=== PATIENT | female | born 1960 | race Caucasian/White ===

== ENCOUNTER → 2017-11-05 16:11 | Outpatient (CLI) | payer OTHER, SELFPAY ==
--- NOTE | 2017-11-05 16:17 | MM_ITS ---
MM Dig screening mamm BI w/CAD CAD Screening COMPARISON: Digital mammograms 07/26/2016 and additional views left breast 08/04/2016 INDICATION: There is no personal or family history of breast cancer. TECHNIQUE: Standard CC and MLO images were obtained. R2 CAD reviewed. FINDINGS: Scattered fibroglandular densities are seen throughout both breasts. There are benign appearing castration is right breast. The metallic loop recorder device projects over the lower inner quadrant left breast. There is no suspicious lesion and there are no suspicious microcalcifications. IMPRESSION: Fibrofatty parenchyma no suspicious lesion seen BI-RADS Category: 2 Benign Finding(s) RECOMMENDED FOLLOW-UP: 1YR - 1 YEAR FOLLOW-UP (A letter has been sent to the patient regarding results of the study.)
== END ==
PROVIDERS: PCP Internal Medicine; Visit Provider Internal Medicine
DX: Z12.31 Encounter for screening mammogram for malignant neoplasm of breast (principal)
CPT/HCPCS: 77067

== ENCOUNTER → 2017-11-15 12:52 | Outpatient (CLI) | payer OTHER, SELFPAY ==
[2017-11-15 13:44] LABS: Blood Urea Nitrogen 16 mg/dL (7-18); Calcium 9.5 mg/dL (8.5-10.1); Carbon Dioxide 31 mmol/L (21.0-32.0); Chloride 102 mmol/L (98-107); Creatinine,Serum 0.73 mg/dL (0.55-1.02); Estimated Glomerular Filt Rate 82 ml/min (>60); GFR (African American) 99 ML/MIN (>60); Glucose 107 mg/dL (74-106); Sodium 140 mmol/L (136-145)
== END ==
PROVIDERS: Visit Provider Internal Medicine Cardiovascular Disease
DX: Z86.73 Personal history of transient ischemic attack (TIA), and cerebral infarction without residual deficits (principal); I10 Essential (primary) hypertension
CPT/HCPCS: 36415; 80048

== ENCOUNTER → 2018-04-15 11:57 | Outpatient (CLI) | payer OTHER, SELFPAY ==
--- NOTE | 2018-04-15 | NVE_ITS ---
Venous Exam Indications: 729.5 Pain in limb. IMPRESSIONS 1. There is no evidence of significant Reflux. 2. No evidence of deep or superficial vein thrombosis involving the right lower extremity History: Right lower extremity pain. Risk factors: Hypertension. History of CVA 2016. Patient denies trauma. States she's had knee cap edema and stinging in her right thigh. Medications: Aspirin, 325 mg. Right lower extremity venous duplex evaluation. Doppler flow study including spectral analysis, color and faye scale imaging. Location: Vascular laboratory. Patient status: Outpatient. Tables: Venous flow and imaging: + +-------+ + Location Overall Flow properties + +-------+ + Right common femoral Patent Normal phasicity; spontaneous; normal augmentation; compressible + +-------+ + Right saphenofemoral junction Patent Compressible + +-------+ + Right profunda femoral Patent Compressible + +-------+ + Right femoral Patent Normal phasicity; spontaneous; normal augmentation; compressible + +-------+ + Right greater saphenous Patent Normal phasicity; spontaneous; normal augmentation; compressible + +-------+ + Right popliteal Patent Normal phasicity; spontaneous; normal augmentation; compressible + +-------+ + Right posterior tibial Patent Compressible + +-------+ + Right peroneal Patent Compressible + +-------+ + Right gastrocnemius Patent Compressible + +-------+ + Right soleal Patent Compressible + +-------+ + (Report amended ) Electronically signed by: Austin Calhoun [id number]
== END ==
PROVIDERS: PCP Internal Medicine; Visit Provider Internal Medicine
DX: M79.604 Pain in right leg (principal)
CPT/HCPCS: 93971

== ENCOUNTER → 2018-07-03 10:57 | Outpatient (CLI) | payer OTHER, SELFPAY ==
--- NOTE | 2018-07-03 10:59 | US_ITS ---
US transvaginal HISTORY: Postmenopausal bleeding ITS.REASON: US T/V- post menopausal bleeding ORDERING PHYSICIAN: Renay Mcnair MD PATIENT AGE: 57 years Comparison: None FINDINGS: The uterus is retroverted and retroflexed and measures 8 x 5 x 8 cm with a combined endometrial thickness of 6 mm. There are at least 4 uterine fibroids one in the fundus at 2.4 x 1.9 cm, one posteriorly in the lower uterine segment on the right at 4.3 x 3.7 cm, another posteriorly on the left at 3.7 x 3.9 cm, and one anteriorly at 3.9 x 2.9 cm. Small hyperechoic focus is present in the cervix with some posterior acoustical shadowing. The ovaries have an unremarkable appearance. There is a trace amount of fluid in the pelvis. IMPRESSION: Uterine fibroids
== END ==
PROVIDERS: PCP Internal Medicine; Visit Provider Obstetrics & Gynecology
DX: N95.0 Postmenopausal bleeding (principal)
CPT/HCPCS: 76830

== ENCOUNTER → 2018-12-13 12:06 | Outpatient (CLI) | payer OTHER, SELFPAY | PROVIDERS: PCP Internal Medicine; Visit Provider Internal Medicine Cardiovascular Disease | DX: G47.33 Obstructive sleep apnea (adult) (pediatric) (principal); R06.83 Snoring; R40.0 Somnolence; R00.2 Palpitations; E78.2 Mixed hyperlipidemia; I10 Essential (primary) hypertension; Z86.73 Personal history of transient ischemic attack (TIA), and cerebral infarction without residual deficits | CPT/HCPCS: 95806 ==

== ENCOUNTER → 2019-02-17 16:40 | Outpatient (CLI) | payer OTHER, SELFPAY ==
--- NOTE | 2019-02-17 16:45 | MM_ITS ---
PROCEDURE: MM DIG SCREENING MAMM BI W/CAD Patient Age:58Y CLINICAL INDICATION: ROUTINE SCREENING 58-year-old. No hormones no new complaints Previous benign excisional biopsies: Right breast at 10-11 o'clock; and left breast 930 and 10 o'clock position COMPARISON: [facility] DIGITAL MAMM-SCREEN BILATERAL from 09/14/2010 [facility] DIGITAL MAMM-SCREEN BILATERAL from 10/26/2011 [facility] DIG MAMM-SCREEN CHEMO from 07/21/2013 [facility] DIG MAMM-SCREEN CHEMO from 10/14/2014 [facility] DIG MAMM-SCREEN CHEMO W/CAD from 07/26/2016 [facility] DIG MAMM-DX UNI A/VWS-LT W/CAD from 08/04/2016 [facility] MM Dig screening mamm BI w/CAD from 11/05/2017 TECHNIQUE: Standard CC and MLO images were obtained. R2 CAD reviewed. FINDINGS: No new areas of concern when compared to multiple studies. Stable mild asymmetry Minimal residual fibroglandular elements and is findings which likely reflect previous biopsies Right breast: No new areas of concern. Min mild asymmetric density upper outer quadrant is stable and likely reflects previous biopsy A few subtle areas of low density nodularity remains stable and can be followed Left breast but of minimal residual densities but no significant new area of concern Area of minor nodularity dates back to 2014, 2016 2017 with no significant change. Follow-up 1 year adequate IMPRESSION: stable mammogram. No new findings of significant concern. stable mild asymmetry, in part reflect previous biopsies Stable areas of minor nodularity bilaterally Bilateral follow-up 1 year recommended.-Should be encouraged/emphasized. BI-RAD Category: 2 Benign Finding(s) FOLLOW-UP: 1YR 1 Year Follow-up (A letter has been sent to the patient regarding results of the study.) Dictated by: Austin Calhoun MD 02/19/2019 08:57 Electronically signed by Austin Calhoun MD in [place] 02/19/2019 08:57
== END ==
PROVIDERS: PCP Internal Medicine; Visit Provider Internal Medicine
DX: Z12.31 Encounter for screening mammogram for malignant neoplasm of breast (principal)
CPT/HCPCS: 77067

== ENCOUNTER → 2020-09-06 16:34 | Outpatient (CLI) | payer BC, SELFPAY ==
--- NOTE | 2020-09-06 16:36 | MM_ITS ---
PROCEDURE: MM DIG SCREENING MAMM BI W/CAD Digital Breast Tomosynthesis Included CLINICAL INDICATION: SCREENING There is no personal or family history of breast cancer. There have been previous biopsies on each breast disease. COMPARISON: Digital mammograms with CAD 02/17/2019 and 11/05/2017 TECHNIQUE: Standard CC and MLO images and 3D Tomosynthesis was obtained. R2 CAD reviewed. FINDINGS: Moderate scattered fibroglandular densities are seen in both breasts. There is a benign-appearing microcalcification right breast in addition to scattered benign-appearing microcalcifications throughout each breast there is a loop recorder device inner quadrant left breast. There is a stable small benign-appearing density central portion right breast. CAD markings were reviewed and they appear to be secondary to vascular calcifications. There is no suspicious lesion and no suspicious microcalcifications. IMPRESSION: Fibrofatty parenchyma with no suspicious lesions seen BI-RAD Category: 2 Benign Finding(s) FOLLOW-UP: 1YR 1 Year Follow-up (A letter has been sent to the patient regarding results of the study.) Dictated by: Dr. Meng Packer MD 09/10/2020 09:43 Dr. Meng Packer MD in [place] 09/10/2020 09:43
== END ==
PROVIDERS: PCP Internal Medicine; Visit Provider Internal Medicine
DX: Z12.31 Encounter for screening mammogram for malignant neoplasm of breast (principal)
CPT/HCPCS: 77063; 77067

== ENCOUNTER → 2020-12-08 16:22 | Outpatient (CLI) | payer BC, SELFPAY ==
--- NOTE | 2020-12-08 16:29 | MR_ITS ---
PROCEDURE: MR HEAD/BRAIN WO CON CLINICAL INDICATION: VERTIGO NAUSEA AND H/A COMPARISON: No exams were available for comparison TECHNIQUE: Routine multiplanar multi echo sequences are performed without gadolinium enhancement. FINDINGS: No midline shift, mass effect, intracranial hemorrhage, or hydrocephalus. The cerebellopontine angles, cerebellum, and brainstem have an unremarkable appearance. There is no evidence of acute infarction. There is a small gyriform area of increased T2 signal within the inferior and posterior aspect of the left occipital lobe suggesting a small area of late subacute or chronic infarction. There are a few small T2 white matter hyperintensities which may be related to gliotic changes from microvascular disease. Migraine headache would be included in the differential diagnosis. The pituitary, optic chiasm, corpus callosum, and craniocervical junction have an unremarkable appearance. Incidental note is made of a pineal cyst measuring 12 by 10 mm. No hydrocephalus. Unremarkable hippocampal gyri. No mastoid effusion or sinus air-fluid level. IMPRESSION: 1. Small ribbon like area of increased T2 signal involving the inferior and posterior aspect of the left occipital lobe. This does not demonstrate restricted diffusion and is not consistent with an acute infarction but may represent a late subacute or chronic infarction as there is no underlying brain volume loss or decreased T1 signal. 2. 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 A few small scattered T2 white matter hyperintensities along the cerebral convexities which may represent gliotic changes from microvascular disease but could be seen with migraine headache as well. Dictated by: Kimani Ellis MD 12/08/2020 18:02 Kimani Ellis MD in [place] 12/08/2020 18:02
== END ==
PROVIDERS: PCP Internal Medicine; Visit Provider Internal Medicine
DX: R42 Dizziness and giddiness (principal); R51.9 Headache, unspecified; R11.0 Nausea
CPT/HCPCS: 70551

== ENCOUNTER → 2021-03-31 11:56 | Outpatient (CLI) | payer BC, SELFPAY | PROVIDERS: PCP Internal Medicine; Visit Provider Nurse Practitioner | DX: Z20.822 Contact with and (suspected) exposure to COVID-19 (principal) | CPT/HCPCS: C9803; U0003; U0005 ==

== ENCOUNTER → 2021-05-13 14:21 | Outpatient (CLI) | payer BC, SELFPAY ==
--- NOTE | 2021-05-14 11:39 | PC.NURSE ---
informed patient that she was positive
== END ==
PROVIDERS: PCP Internal Medicine; Visit Provider Internal Medicine
DX: U07.1 COVID-19 (principal)
CPT/HCPCS: C9803; U0003; U0005

== ENCOUNTER → 2021-09-15 15:25 | Outpatient (CLI) | payer BC, SELFPAY ==
--- NOTE | 2021-09-15 15:30 | MM_ITS ---
PROCEDURE INFORMATION: Exam: MG Bilateral Screening 3D Mammography Exam date and time: 09/15/2021 3:26 PM Age: 60 years old Clinical indication: Screening examination TECHNIQUE: Imaging protocol: Bilateral Screening tomosynthesis and 2D mammography including computer-aided detection (CAD) when performed. COMPARISON: 1. MG MM DIG SCREENING MAMM BI W/CAD 09/06/2020 4:36 PM 2. MG MM DIG SCREENING MAMM BI W/CAD 02/17/2019 4:56 PM FINDINGS: MAMMOGRAPHY: Breast composition: The breast tissue is composed of scattered areas of fibroglandular density. Mass: None. Architectural distortion: None. Calcifications: No suspicious calcifications. Asymmetric density: None. Skin thickening: None. Axillary adenopathy: None. IMPRESSION: No mammographic evidence of malignancy. Annual screening is recommended unless otherwise clinically indicated. ASSESSMENT: BI-RADS Category 1: Negative
== END ==
PROVIDERS: PCP Internal Medicine; Visit Provider Obstetrics & Gynecology
DX: Z12.31 Encounter for screening mammogram for malignant neoplasm of breast (principal)
CPT/HCPCS: 77063; 77067

== ENCOUNTER → 2022-01-10 16:19 | Outpatient (CLI) | payer BC, SELFPAY ==
--- NOTE | 2022-01-10 16:24 | XR_ITS ---
PROCEDURE INFORMATION: Exam: XR Left Knee Exam date and time: 01/10/2022 4:29 PM Age: 61 years old Clinical indication: Pain; Knee; Left TECHNIQUE: Imaging protocol: Radiologic exam of the Left knee. Views: 3 views. COMPARISON: No relevant prior studies available. FINDINGS: Bones/joints: Osteopenia. Advanced tricompartmental degenerative changes. No definite acute fracture or dislocation. Soft tissues: Normal. IMPRESSION: Chronic changes without definite acute process. If there is ongoing concern, cross-sectional imaging can be obtained for further evaluation.
--- NOTE | 2022-01-10 16:24 | XR_ITS ---
PROCEDURE INFORMATION: Exam: XR Right Knee Exam date and time: 01/10/2022 4:29 PM Age: 61 years old Clinical indication: Pain; Knee; Right; Additional info: Bilat knee pain TECHNIQUE: Imaging protocol: Radiologic exam of the Right knee. Views: 3 views. COMPARISON: US CA venous doppler LE RT 04/15/2018 12:09 PM FINDINGS: Moderate to severe patellofemoral compartment osteoarthritis. Mild bilateral tibiofemoral compartment osteoarthritis. The joint space at the patellofemoral compartment is significantly decreased. Joint spaces at the bilateral tibiofemoral compartments are very well preserved no acute fracture, dislocation, or aggressive skeletal lesion. No joint effusions. No significant soft tissue swelling. IMPRESSION: 1. Moderate to severe patellofemoral compartment osteoarthritis. 2. Mild bilateral tibiofemoral compartment osteoarthritis. 3. No acute skeletal pathology.
== END ==
PROVIDERS: PCP Internal Medicine; Visit Provider Internal Medicine
DX: M25.562 Pain in left knee (principal); M25.561 Pain in right knee
CPT/HCPCS: 73562

== ENCOUNTER → 2022-01-24 11:55 | Outpatient (CLI) | payer BC, SELFPAY | PROVIDERS: PCP Internal Medicine; Visit Provider Internal Medicine | DX: U07.1 COVID-19 (principal) | CPT/HCPCS: C9803; U0003; U0005 ==

== ENCOUNTER → 2022-03-20 13:48 | Outpatient (CLI) | payer BC, SELFPAY ==
[2022-03-20 14:38] LABS: Basophils # 0.5 K/mm3 (0-0.2); Basophils % 6.8 % (0.1-2.0); Eosinophils # 0.1 K/mm3 (0.0-0.4); Eosinophils % 1.1 % (0.1-12.0); Hematocrit 46.9 % (37.0-47.0); Hemoglobin 14.7 g/dL (12.2-16.2); Lymphocytes # 2.3 K/mm3 (0.7-4.5); Lymphocytes % 30.9 % (10-50); Mean Corpuscular HGB Conc 31.3 g/dL (31.8-35.4); Mean Corpuscular Hemoglobin 29.2 pg (27.0-31.2); Mean Platelet Volume 21.6 fl (7.4-10.4); Monocytes # 0.4 K/mm3 (0.1-1.0); Monocytes % 5.7 % (1.7-9.3); Neutrophils # 4.6 K/mm3 (1.8-7.8); Neutrophils % 62.3 % (37.0-80.0); Platelet Count 101 K/mm3 (142-424); Red Blood Count 5.04 M/mm3 (4.20-5.40); Red Cell Distribution Width 22.9 % (11.5-17.5); White Blood Count 7.3 K/mm3 (4.8-10.8)
[2022-03-20 16:07] LABS: Alanine Aminotransferase 41 U/L (12-78); Albumin Level 4.2 g/dl (3.5-5.0); Alkaline Phosphatase 102 U/L (38-126); Aspartate Amino Transferase 36 U/L (14-36); Bilirubin,Direct 0.1 mg/dl (0.0-0.4); Bilirubin,Indirect 0.4 mg/dL (0.0-0.9); Bilirubin,Total 0.5 mg/dl (0.2-1.3); Bilirubin,Unconjugated 0.4 mg/dL (0.0-1.1); Blood Urea Nitrogen 16 mg/dl (7-17); Calcium 9.1 mg/dl (8.4-10.2); Carbon Dioxide 31 mmol/L (22.0-30.0); Chloride 98 mmol/L (98-107); Chol/HDL Ratio 2.7 (1-3.5); Cholesterol 147 mg/dl (140-200); Estimated Glomerular Filt Rate 85 ml/min (>60); GFR (African American) 102 ML/MIN (>60); Glucose 94 mg/dl (74-100); HDL Cholesterol 55 mg/dl (40-60); Sodium 139 mmol/L (136-145); Total Protein,Serum 6.8 g/dl (6.3-8.2); Triglycerides 121 mg/dl (30-150); VLDL Cholesterol 24 mg/dL (0-40)
[2022-03-20 16:18] LABS: Direct LDL Cholesterol 66.03 mg/dL (100-129)
[2022-03-20 16:38] LABS: Thyroid Stimulating Hormone 3.38 uIU/mL (0.465-4.68)
== END ==
PROVIDERS: PCP Internal Medicine; Visit Provider Internal Medicine
DX: R06.00 Dyspnea, unspecified (principal); I11.9 Hypertensive heart disease without heart failure; E78.5 Hyperlipidemia, unspecified; Z86.73 Personal history of transient ischemic attack (TIA), and cerebral infarction without residual deficits; E11.9 Type 2 diabetes mellitus without complications
CPT/HCPCS: 36415; 80048; 80061; 80076; 84439; 84443; 85025

== ENCOUNTER → 2022-04-25 12:34 | Outpatient (CLI) | payer BC, SELFPAY ==
[2022-04-25 13:42] LABS: Basophils # 0.1 K/mm3 (0-0.2); Basophils % 0.9 % (0.1-2.0); Eosinophils # 0.1 K/mm3 (0.0-0.4); Eosinophils % 0.8 % (0.1-12.0); Hematocrit 48.8 % (37.0-47.0); Hemoglobin 15.3 g/dL (12.2-16.2); Lymphocytes # 2.3 K/mm3 (0.7-4.5); Lymphocytes % 28.1 % (10-50); Mean Corpuscular HGB Conc 31.5 g/dL (31.8-35.4); Mean Corpuscular Hemoglobin 30.8 pg (27.0-31.2); Mean Corpuscular Volume 97.9 fl (81-99); Mean Platelet Volume 8.7 fl (7.4-10.4); Monocytes # 0.6 K/mm3 (0.1-1.0); Monocytes % 6.8 % (1.7-9.3); Neutrophils # 5.3 K/mm3 (1.8-7.8); Neutrophils % 63.3 % (37.0-80.0); Platelet Count 335 K/mm3 (142-424); Red Blood Count 4.98 M/mm3 (4.20-5.40); Red Cell Distribution Width 13.6 % (11.5-17.5); White Blood Count 8.3 K/mm3 (4.8-10.8)
[2022-04-25 14:47] LABS: Blood Urea Nitrogen 17 mg/dl (7-17); Carbon Dioxide 31 mmol/L (22.0-30.0); Chloride 94 mmol/L (98-107); Estimated Glomerular Filt Rate 63 ml/min (>60); GFR (African American) 77 ML/MIN (>60); Glucose 81 mg/dl (74-100); Magnesium 1.9 mg/dl (1.6-2.3); Sodium 139 mmol/L (136-145)
== END ==
PROVIDERS: PCP Internal Medicine; Visit Provider Internal Medicine
DX: I10 Essential (primary) hypertension (principal); D69.6 Thrombocytopenia, unspecified; R25.2 Cramp and spasm; Z86.73 Personal history of transient ischemic attack (TIA), and cerebral infarction without residual deficits
CPT/HCPCS: 80048; 83735; 85025

== ENCOUNTER 2022-09-04 00:01 | Inpatient (IN) | payer BC, SELFPAY ==
[2022-09-04] VITALS (27 sets, daily range): BP systolic 110–189; BP diastolic 54–88; PULSE 58–90; RESP 16–20; TEMP 36.4–36.8; O2SAT 92–100; BMI 35.4; BMI 36.5
--- NOTE | 2022-09-04 00:07 | ECG_ITS ---
APPROVED REPORT Exam: Resting ECG HR:63 bpm ECG Measurements Heart Rate 63 AXES KS 123 P 55 QRSd 93 QRS 69 QT 358 T 80 QTc 366 Conclusion SINUS RHYTHM NORMAL ECG UNCONFIRMED REPORT Electronically signed by : Macho Slater MD 09/04/2022 20:21:05
--- NOTE | 2022-09-04 00:07 | XR_ITS ---
PROCEDURE INFORMATION: Exam: XR Chest Exam date and time: 09/04/2022 12:48 AM Age: 61 years old Clinical indication: Pain; Chest pressure; Additional info: Cp TECHNIQUE: Imaging protocol: Radiologic exam of the chest. Views: 2 views. COMPARISON: No relevant prior studies available. FINDINGS: Lungs: Left lung granuloma. Mild bibasilar atelectasis. Pleural spaces: Unremarkable. No pleural effusion. No pneumothorax. Heart/Mediastinum: Unremarkable. No cardiomegaly. Vasculature: Vascular calcifications. Bones/joints: Unremarkable. IMPRESSION: No acute findings.
[2022-09-04 00:20] LABS: Basophils # 0.1 K/mm3 (0-0.2); Basophils % 0.9 % (0.1-2.0); Eosinophils # 0.2 K/mm3 (0.0-0.4); Eosinophils % 1.6 % (0.1-12.0); Hematocrit 50.7 % (37.0-47.0); Hemoglobin 16.6 g/dL (12.2-16.2); Lymphocytes # 3.4 K/mm3 (0.7-4.5); Lymphocytes % 33.5 % (10-50); Mean Corpuscular HGB Conc 32.8 g/dL (31.8-35.4); Mean Corpuscular Hemoglobin 30.8 pg (27.0-31.2); Mean Corpuscular Volume 93.9 fl (81-99); Mean Platelet Volume 8.3 fl (7.4-10.4); Monocytes # 0.7 K/mm3 (0.1-1.0); Monocytes % 6.7 % (1.7-9.3); Neutrophils # 5.9 K/mm3 (1.8-7.8); Neutrophils % 57.4 % (37.0-80.0); Platelet Count 350 K/mm3 (142-424); Red Blood Count 5.39 M/mm3 (4.20-5.40); Red Cell Distribution Width 13.1 % (11.5-17.5); White Blood Count 10.2 K/mm3 (4.8-10.8)
[2022-09-04 00:23] LABS: Coronavirus 19, PCR Not Detected (NotDetected); Influenza A, PCR Not Detected (NotDetected); Influenza B, PCR Not Detected (NotDetected)
[2022-09-04 00:23] LABS: Alanine Aminotransferase 30 U/L (12-78); Albumin Level 4.7 g/dl (3.5-5.0); Albumin/Globulin Ratio 1.4 (1.1-1.8); Alkaline Phosphatase 53 U/L (38-126); Aspartate Amino Transferase 40 U/L (14-36); Blood Urea Nitrogen 22 mg/dl (7-17); Calcium 9.1 mg/dl (8.4-10.2); Carbon Dioxide 26 mmol/L (22.0-30.0); Chloride 100 mmol/L (98-107); Creatinine Clearance Estimated 82 mL/min (50-200); Estimated Glomerular Filt Rate 72 ml/min (>60); GFR (African American) 88 ML/MIN (>60); Globulin 3.3 g/dL (1.3-3.2); Glucose 184 mg/dl (74-100); Sodium 132 mmol/L (136-145)
[2022-09-04 00:28] LABS: C-Reactive Protein 0.4 mg/L (0-4)
[2022-09-04 00:39] LABS: Troponin I < 0.01 ng/ml (0.00-0.034)
[2022-09-04 00:48] LABS: Erythrocyte Sedimentation Rate 2 mm/hr (0-30)
--- NOTE | 2022-09-04 00:49 | HMH.EDCP ---
Discharge Plan Disposition Patient Disposition: Admitted as Observation Chief Complaint: Chest Pain Prescriptions Prescriptions: No Action lorazepam 0.5 mg tablet 0.5 mg PO TID PRN (Reason: Anxiety) Label Comments: TAKE 1 TABLET BY MOUTH THREE TIMES DAILY NEEDED FOR NERVES gabapentin 100 mg capsule 100 mg PO NEEDED PRN (Reason: Pain) atenolol 50 mg tablet 50 mg PO DAILY atorvastatin [Lipitor] 40 mg tablet 40 mg PO DAILY aspirin 325 mg tablet 325 mg PO DAILY naproxen 500 mg tablet 500 mg PO DAILY PRN (Reason: Pain, Mild) famotidine 20 mg tablet 20 mg PO DAILY PRN (Reason: Acid Reflux) meloxicam 7.5 mg tablet 7.5 mg PO DAILY PRN (Reason: Pain, Mild) cholecalciferol (vitamin D3) 25 mcg (1,000 unit) capsule 25 mcg PO DAILY losartan 50 mg tablet See Rx Instructions .ROUTE .COMPLEX Rx Instructions: Take 1 tablet by mouth once daily hydrochlorothiazide 12.5 mg tablet See Rx Instructions .ROUTE .COMPLEX Rx Instructions: Take 1 tablet by mouth once daily Referrals Follow up/Referrals: Provider,Referral, MD [Primary Care Provider] - See instructions Clinical Impressions Clinical Impression: Angina at rest, Hypertensive disorder, HLD (hyperlipidemia), History of CVA (cerebrovascular accident) without residual deficits, Obesity Discharge ED Provider: Vince (JOE)Arley Chest Pain HPI General Chief Complaint: Chest Pain Stated Complaint: chest pain Time Seen by Provider: 09/04/22 00:49 Mode of Arrival: Ambulatory Source of Information: Patient, Spouse and Medical Record Limitations: No Limitations Description of Symptoms (Recalled from ER Triage Doc. by RN): Pt arrives to ED with c/o chest pain that is radiating to left arm that started approx 1 hour ago. History of Present Illness HPI narrative: new onset of tightness chest pain with rad awoke pt with rad to lt upper ext - hx of cva in past MD complaint: chest pain indicative of cardiac Onset (ago): hour(s) Duration: constant Activity at onset: awoke with symptoms Pain location: left chest Severity: moderate Quality: tightness Pain radiation: LUE Risk Factors for CAD: Hypertension and Family Hx of CAD Treatments prior to or on arrival for Cardiac Chest Pain: aspirin JULIO CESAR Score for Non-Stemi Age of Patient: 60-69 years old Heart Rate: 50-69 bpm Systolic Blood Pressure: 100-119 mmHg Serum Creatinine: 0.80-1.19 mg/dl CHF [place] Class: I-No CHF Other Risk Factors: None Non-Stemi Risk Score: 111 Risk Stratification: 109-140 = Intermediate Ri Related Data On Oral Contraceptives: No Home Medications Medication Instructions Recorded Confirmed atenolol 50 mg tablet 50 mg PO DAILY Hypertension 08/08/17 09/04/22 atorvastatin 40 mg tablet (Lipitor) 40 mg PO DAILY Cholesterol 08/08/17 09/04/22 aspirin 325 mg tablet 325 mg PO DAILY Chest pain 08/09/17 09/04/22 naproxen 500 mg tablet 500 mg PO DAILY PRN Pain, Mild 02/21/19 09/04/22 lorazepam 0.5 mg tablet 0.5 mg PO TID PRN Anxiety 10/21/19 09/04/22 cholecalciferol (vitamin D3) 25 25 mcg PO DAILY Cholesterol 03/20/22 09/04/22 mcg (1,000 unit) capsule famotidine 20 mg tablet 20 mg PO DAILY PRN Acid Reflux 03/20/22 09/04/22 meloxicam 7.5 mg tablet 7.5 mg PO DAILY PRN Pain, Mild 03/20/22 09/04/22 gabapentin 100 mg capsule 100 mg PO NEEDED PRN Pain 08/30/22 09/04/22 hydrochlorothiazide 12.5 mg tablet See Rx Instructions .Route 09/04/22 09/04/22 .COMPLEX Hypertension losartan 50 mg tablet See Rx Instructions .Route 09/04/22 09/04/22 .COMPLEX Hypertension Allergies Allergy/AdvReac Type Severity Reaction Status Date / Time No Known Allergies Allergy Verified 08/30/22 09:12 [facility] Disclaimer: The information contained in this section may have been updated after the patient was seen, as this information can be updated by other users. Social History Marisela
--- NOTE | 2022-09-04 00:51 | PC.NURSE ---
Pt states she took 324mg of aspirin prior to coming to the ED.
--- NOTE | 2022-09-04 01:51 | EXP.HP ---
History of Present Illness *Admission Date: 09/04/22 *Reason for visit:: Chest pain *History of present illness: This is a 61-year-old female with a past medical history of CVA, HTN, HLD who presents emergency department today with complaints of midsternal chest pain. She reports chest pain woke her from sleep around 11:00 this evening. She states that pain was heaviness and squeezing in nature. Pain radiated to her left arm. She denies any aggravating or alleviating factors to this pain. She reports she was in her normal state of health prior to this pain. She reports prior evaluation by Dr. Will at the timing of her stroke but has not had follow-up since. She reports being compliant with her home aspirin, statin and antihypertensive medications Emergency department work-up significant for hypertension on arrival. laboratory evaluation unremarkable. Troponin negative. EKG without ischemia. Pain was improved after nitro administration. Given patient's nature of complaints, she will be admitted to hospital service for further evaluation management [facility] Disclaimer: The information contained in this section may have been updated after the patient was seen, as this information can be updated by other users. Social History Smoking Status: Former smoker pack-years: 10 alcohol intake: current substance use type: denies use current occupational status: employed Travel in the last 8 weeks: None household members: spouse housing: house Review of Systems Review of Systems Review of systems:: pertinent systems reviewed and negative unless documented below Constitutional Constitutional: Reports as per HPI Eyes Eyes: Reports as per HPI ENT Ears, Nose, Mouth, and Throat: Reports as per HPI *Cardiovascular Cardiovascular: Reports as per HPI *Respiratory Respiratory: Reports as per HPI *Gastrointestinal Gastrointestinal: Reports dyspepsia *Genitourinary Genitourinary: Reports system reviewed and no additional complaints, except as documented *Musculoskeletal Musculoskeletal: Reports system reviewed and no additional complaints, except as documented Integumentary/Breasts Skin/Breast: Reports system reviewed and no additional complaints, except as documented *Neurologic Neurologic: Reports system reviewed and no additional complaints, except as documented Meds Home Medications and Allergies Home Medications Medication Instructions Recorded Confirmed Type atenolol 50 mg tablet 50 mg PO DAILY Hypertension 08/08/17 09/04/22 History atorvastatin 40 mg tablet (Lipitor) 40 mg PO DAILY Cholesterol 08/08/17 09/04/22 History aspirin 325 mg tablet 325 mg PO DAILY Chest pain 08/09/17 09/04/22 History naproxen 500 mg tablet 500 mg PO DAILY PRN Pain, Mild 02/21/19 09/04/22 History lorazepam 0.5 mg tablet 0.5 mg PO TID PRN Anxiety 10/21/19 09/04/22 History cholecalciferol (vitamin D3) 25 25 mcg PO DAILY Cholesterol 03/20/22 09/04/22 History mcg (1,000 unit) capsule famotidine 20 mg tablet 20 mg PO DAILY PRN Acid Reflux 03/20/22 09/04/22 History meloxicam 7.5 mg tablet 7.5 mg PO DAILY PRN Pain, Mild 03/20/22 09/04/22 History gabapentin 100 mg capsule 100 mg PO NEEDED PRN Pain 08/30/22 09/04/22 History hydrochlorothiazide 12.5 mg tablet See Rx Instructions .Route 09/04/22 09/04/22 History .COMPLEX Hypertension losartan 50 mg tablet See Rx Instructions .Route 09/04/22 09/04/22 History .COMPLEX Hypertension New Prescriptions to Start Prescriptions: Allergies Allergy/AdvReac Type Severity Reaction Status Date / Time No Known Allergies Allergy Verified 08/30/22 09:12 Exam Data for Last 24 hours Vital signs and Labs for Last 24 Hours: Temp Pulse Resp BP Pulse Ox 98.3 F 67 18 189/88 H 99 09/04/22 00:01 09/04/22 00:01 09/04/22 00:01 09/04/22 00:01 09/04/22 00:01 Laboratory Results - last 24 hr 09/04/22 00:02: WBC 10.2, RBC 5.39,
--- NOTE | 2022-09-04 05:52 | PC.NURSE ---
Pt. is aox 4, up ad cesilia, no pain reported, 20g R FA sl, awaiting to be seen by cardiology, npo at present.
[2022-09-04 06:28] LABS: Basophils # 0.1 K/mm3 (0-0.2); Basophils % 0.7 % (0.1-2.0); Eosinophils # 0.1 K/mm3 (0.0-0.4); Mean Platelet Volume 8.2 fl (7.4-10.4)
[2022-09-04 06:37] LABS: Chloride 104 mmol/L (98-107); Eosinophils % 0.9 % (0.1-12.0); Hematocrit 45.3 % (37.0-47.0); Lymphocytes # 2.5 K/mm3 (0.7-4.5); Lymphocytes % 28.8 % (10-50); Mean Corpuscular HGB Conc 31.9 g/dL (31.8-35.4); Mean Corpuscular Hemoglobin 30.3 pg (27.0-31.2); Mean Corpuscular Volume 94.9 fl (81-99); Monocytes # 0.6 K/mm3 (0.1-1.0); Monocytes % 6.8 % (1.7-9.3); Neutrophils # 5.4 K/mm3 (1.8-7.8); Neutrophils % 62.7 % (37.0-80.0); Platelet Count 334 K/mm3 (142-424); Red Blood Count 4.77 M/mm3 (4.20-5.40); Red Cell Distribution Width 13.2 % (11.5-17.5); Sodium 137 mmol/L (136-145); White Blood Count 8.6 K/mm3 (4.8-10.8)
[2022-09-04 06:39] LABS: Blood Urea Nitrogen 19 mg/dl (7-17); Creatinine Clearance Estimated 85 mL/min (50-200); Estimated Glomerular Filt Rate 72 ml/min (>60); GFR (African American) 88 ML/MIN (>60)
[2022-09-04 06:40] LABS: Calcium 8.7 mg/dl (8.4-10.2); Carbon Dioxide 29 mmol/L (22.0-30.0); Chol/HDL Ratio 2.9 (1-3.5); Cholesterol 135 mg/dl (140-200); Glucose 151 mg/dl (74-100); HDL Cholesterol 46 mg/dl (40-60); Hemoglobin 14.4 g/dL (12.2-16.2); Magnesium 1.9 mg/dl (1.6-2.3); Triglycerides 130 mg/dl (30-150); VLDL Cholesterol 26 mg/dL (0-40)
[2022-09-04 06:51] LABS: Direct LDL Cholesterol 76.88 mg/dL (100-129)
[2022-09-04 07:11] LABS: Thyroid Stimulating Hormone 3.67 uIU/mL (0.465-4.68)
--- NOTE | 2022-09-04 07:22 | HMH.PHAINT1 ---
Pharmacy Intervention Comments: Reconciled patient's home medications using patient interview and pharmacy fill history.
[2022-09-04 07:54] LABS: Free T4 (Free Thyroxine) 1.03 ng/dl (0.78-2.19)
--- NOTE | 2022-09-04 09:15 | EXP.CARD.CON ---
History of Present Illness History of Present Illness Consult date: 09/04/22 Requesting physician: Saqib Sawant Consult reason: chest pain Chief complaint: unstable angina History of present illness: 61-year-old white female with significant past medical history for TIA, has loop recorder in place at end of life, hyperlipidemia, and hypertension, presented to emergency department last night with complaints of midsternal chest pressure radiating to left arm. Patient reports she was in her usual state of health yesterday when last night she awoke from sleep with pain. Patient reports pain was associated with mild shortness of air. Denies nausea, vomiting, dizziness or syncope. Upon presentation to emergency department patient was noted to be hypertensive with a blood pressure of 189/88. Labs as follow: WBC 10.2, hemoglobin 16.6, sodium 132, potassium 5.0, creatinine 0.80, glucose 184, troponin negative. Troponin has trended up to 0.46 since initial troponin. EKG was normal sinus rhythm with a rate of [address] changes noted, no acute ischemic changes noted. Patient reports pain relieved with nitro. Patient denies any chest pain currently. Blood pressure improved to 130s. [facility] Disclaimer: The information contained in this section may have been updated after the patient was seen, as this information can be updated by other users. Social History (Updated 09/04/22 @ 03:47 by Diego Farley RN) Smoking Status: Former smoker pack-years: 10 alcohol intake: current substance use type: denies use current occupational status: employed Travel in the last 8 weeks: None household members: spouse housing: house Review of Systems Review of Systems Review of systems:: pertinent systems reviewed and negative unless documented below Constitutional Constitutional: Reports system reviewed and no additional complaints, except as documented *Cardiovascular Cardiovascular: Reports chest pain and Reports dyspnea *Respiratory Respiratory: Reports dyspnea *Gastrointestinal Gastrointestinal: Reports system reviewed and no additional complaints, except as documented *Neurologic Neurologic: Reports system reviewed and no additional complaints, except as documented and Denies confusion Psychiatric Psychiatric: Reports system reviewed and no additional complaints, except as documented and Denies confusion Exam Data for Last 24 hours Vital signs and Labs for Last 24 Hours: Temp Pulse Resp BP Pulse Ox 98.1 F 60 16 139/54 L 98 09/04/22 08:00 09/04/22 08:00 09/04/22 08:00 09/04/22 08:00 09/04/22 08:00 Laboratory Results - last 24 hr 09/04/22 00:02: WBC 10.2, RBC 5.39, Hgb 16.6 H, Hct 50.7 H, MCV 93.9, MCH 30.8, MCHC 32.8, RDW 13.1, Plt Count 350, MPV 8.3, Neut % (Auto) 57.4, Lymph % (Auto) 33.5, [place] % (Auto) 6.7, Eos % (Auto) 1.6, Baso % (Auto) 0.9, Neut # (Auto) 5.9, Lymph # (Auto) 3.4, [place] # (Auto) 0.7, Eos # (Auto) 0.2, Baso # (Auto) 0.1, ESR 2 09/04/22 00:02: Sodium 132 L, Potassium 5.0, Chloride 100, Carbon Dioxide 26, Anion Gap 11.0, BUN 22 H, Creatinine 0.80, Estimated Creat Clear 82, Estimated GFR 72, Est GFR ( Amer) 88, Glucose 184 H, Calcium 9.1, Total Bilirubin 1.0, AST 40 H, ALT 30, Alkaline Phosphatase 53, Troponin I < 0.01, C-Reactive Protein 0.4, Total Protein 8.0, Albumin 4.7, Globulin 3.3 H, Albumin/Globulin Ratio 1.4 09/04/22 00:15: SARS-CoV-2 (PCR) Not detected, Influenza A Untype (PCR) Not detected, Influenza Type B (PCR) Not detected 09/04/22 06:17: WBC 8.6, RBC 4.77, Hgb 14.4 D, Hct 45.3, MCV 94.9, MCH 30.3, MCHC 31.9, RDW 13.2, Plt Count 334, MPV 8.2, Neut % (Auto) 62.7, Lymph % (Auto) 28.8, [place] % (Auto) 6.8, Eos % (Auto) 0.9, Baso % (Auto) 0.7, Neut # (Auto) 5.4, Lymph # (Auto) 2.5, Put[place] # (Auto) 0.6, Eos # (Auto) 0.1, Baso # (Auto) 0.1 09/04/22 06:17: Sodium 137, Potassium 4.0, Chloride 104, Carbon Dioxide 29, Anion Gap 8.0, BUN 19 H, Creatinine 0.80, Estimated Creat Clear 85, Estimated
--- NOTE | 2022-09-04 09:30 | IR_ITS ---
APPROVED REPORT Patient Location: Outpatient[facility]patient PROCEDURES Left heart catheterization Left ventriculogram Selective coronary angiogram INDICATION Acute non-ST elevation myocardial infarction Informed consent was obtained prior to the procedure. COMPLICATIONS NONE Estimated Blood Loss: LESS THAN 10 ML TECHNIQUE One percent lidocaine used to anesthetize the right anterior aspect of the wrist. The right radial artery was accessed via the Seldinger technique. A 6 Armenian sheath was placed in the right radial artery. 150 mg magnesium sulfate, 800 mcg of nitroglycerin, 1mg Lidocaine and 5000 U Heparin were given through the arterial sheath. The papa catheter was also used to perform left heart catheterization, left ventriculogram and selective coronary angiogram. At the end of the procedure the sheath was removed good hemostasis was achieved using Traclet band, patient was transferred to the postop holding area in stable condition. ANGIOGRAPHIC RESULTS The left main artery Normal The left anterior descending artery Is proximally normal and has a small focal myocardial bridge compressing at 40 to 50% along a tortuous bend in the mid LAD The circumflex artery Dominant normal The right coronary artery Vestigial normal The QUILES ventriculogram reveals Normal 65% The left ventricular end-diastolic pressure 15 mmHg IMPRESSION No atherosclerotic plaque within the coronary arteries Clinically insignificant myocardial bridge involving the mid LAD along a tortuous bend Normal ejection fraction Normal LVEDP PLAN 1. Noncardiac evaluation for elevated troponin 2. Consider pulmonary artery CTA gram Electronically signed by : Zafar Will MD 09/04/2022 14:26:08
[2022-09-04 09:42] LABS: Troponin I 0.46 ng/ml (0.00-0.034)
--- NOTE | 2022-09-04 09:43 | PC.NURSE ---
Dr. Sawant notified of critical troponin of 0.46.
[2022-09-04 13:00] LABS: Troponin I 0.86 ng/ml (0.00-0.034)
--- NOTE | 2022-09-04 13:09 | PC.NURSE ---
Dr. Sawant notified for critical troponin of 0.86. Called [facility] to inquire about how long before the procedure and they stated it would be approx. 45 mins. Pt. denies chest pain. Will continue to monitor.
--- NOTE | 2022-09-04 15:17 | CT_ITS ---
FINAL REPORT TECHNIQUE: Postcontrast axial images of the chest were performed in a CTA protocol. This study was performed with techniques to keep radiation doses as low as reasonably achievable, (ALARA). Individualized dose reduction technique using automated exposure control or adjustment of mA and/or kV according to the patient's size were employed. CLINICAL HISTORY: elevated troponin FINDINGS: The heart is normal in size. No adenopathy is identified. No pleural or pericardial effusion is identified. The thoracic aorta is normal in caliber with no focal aneurysm or dissection identified. There is no filling defect to suggest pulmonary embolism. There is mild bibasilar atelectasis. A calcified granuloma is seen in the right lower lobe. Lungs are otherwise clear. The images of the upper abdomen are unremarkable. IMPRESSION: No evidence for PE on this exam. Mild bibasilar atelectasis. Reviewed, Interpreted and Dictated by Jose Palomo III, MD Transcribed by Lucero Preston Authenticated and [facility]
[2022-09-04 17:17] LABS: Troponin I 1.05 ng/ml (0.00-0.034)
--- NOTE | 2022-09-04 17:21 | PC.NURSE ---
Dr. Sawant notified of critical troponin of 1.05. Pt. continues to deny chest pain. Will continue to monitor.
--- NOTE | 2022-09-04 20:59 | PC.NURSE ---
RIGHT UPPER CATH SITE 2X2 TEGADERM C/D/I. WARM, INTACT AND PULSES PRESENT.
[2022-09-05] VITALS: BP 132/67; PULSE 71; RESP 18; TEMP 36.7; O2SAT 95
[2022-09-05 00:39] VITALS: PULSE 60
[2022-09-05 04:00] VITALS: BP 154/87; PULSE 61; RESP 18; TEMP 36.9; O2SAT 97; BMI 36.5
[2022-09-05 04:10] VITALS: PULSE 70
--- NOTE | 2022-09-05 04:23 | PC.NURSE ---
No changes during the night.
[2022-09-05 06:23] LABS: Basophils % 0.5 % (0.1-2.0); Eosinophils # 0.1 K/mm3 (0.0-0.4); Eosinophils % 1.7 % (0.1-12.0); Hematocrit 45.2 % (37.0-47.0); Hemoglobin 14.4 g/dL (12.2-16.2); Lymphocytes # 2.2 K/mm3 (0.7-4.5); Lymphocytes % 27.9 % (10-50); Mean Corpuscular HGB Conc 31.8 g/dL (31.8-35.4); Mean Corpuscular Hemoglobin 29.8 pg (27.0-31.2); Mean Corpuscular Volume 93.9 fl (81-99); Mean Platelet Volume 8.1 fl (7.4-10.4); Monocytes # 0.5 K/mm3 (0.1-1.0); Monocytes % 6.7 % (1.7-9.3); Neutrophils # 5.1 K/mm3 (1.8-7.8); Neutrophils % 63.2 % (37.0-80.0); Platelet Count 285 K/mm3 (142-424); Red Blood Count 4.81 M/mm3 (4.20-5.40); Red Cell Distribution Width 13.3 % (11.5-17.5)
[2022-09-05 06:37] LABS: Chloride 106 mmol/L (98-107); Potassium 3.8 mmoL/L (3.5-5.1); Sodium 138 mmol/L (136-145)
[2022-09-05 06:40] LABS: Anion Gap 8.8 mEq/L (5-15); Blood Urea Nitrogen 16 mg/dl (7-17); Calcium 8.3 mg/dl (8.4-10.2); Carbon Dioxide 27 mmol/L (22.0-30.0); Creatinine Clearance Estimated 85 mL/min (50-200); Estimated Glomerular Filt Rate 85 ml/min (>60); GFR (African American) 102 ML/MIN (>60); Glucose 129 mg/dl (74-100)
[2022-09-05 06:55] LABS: Troponin I 0.32 ng/ml (0.00-0.034)
[2022-09-05 07:25] VITALS: BP 155/76; PULSE 70; RESP 18; TEMP 36.7; O2SAT 97
--- NOTE | 2022-09-05 09:05 | EXP.DC.SUM ---
General Admission date:: 09/04/22 Discharge date: 09/05/22 HPI HPI HPI: This is a 61-year-old female with a past medical history of CVA, HTN, HLD who presents emergency department today with complaints of midsternal chest pain. She reports chest pain woke her from sleep around 11:00 this evening. She states that pain was heaviness and squeezing in nature. Pain radiated to her left arm. She denies any aggravating or alleviating factors to this pain. She reports she was in her normal state of health prior to this pain. She reports prior evaluation by Dr. Will at the timing of her stroke but has not had follow-up since. She reports being compliant with her home aspirin, statin and antihypertensive medications Emergency department work-up significant for hypertension on arrival. laboratory evaluation unremarkable. Troponin negative. EKG without ischemia. Pain was improved after nitro administration. Given patient's nature of complaints, she will be admitted to hospital service for further evaluation management Hospital Course Hospital Course Hospital Course: Patient was admitted with chest pain. Cardiology consulted. Troponin elevated. EKG normal. Taken to the [facility] and observed coronary artery disease. Echo returned normal. Patient was evaluated and treated for [place], would benefit from continuation of antihypertensives. Beta-divina and OMAR inhibitor restarted. Continue dual antiplatelet therapy for 1 year post discharge. Follow-up with cardiology. Exam Data for Last 24 hours Vital signs and Labs for Last 24 Hours: Temp Pulse Resp BP Pulse Ox 98.0 F 70 18 155/76 H 97 09/05/22 07:25 09/05/22 07:25 09/05/22 07:25 09/05/22 07:25 09/05/22 07:25 Laboratory Results - last 24 hr 09/04/22 08:45: Troponin I 0.46 H 09/04/22 12:13: Troponin I 0.86 H 09/04/22 13:32: APTT 23.0 L 09/04/22 16:30: Troponin I 1.05 H 09/05/22 06:07: WBC 8.0, RBC 4.81, Hgb 14.4, Hct 45.2, MCV 93.9, MCH 29.8, MCHC 31.8, RDW 13.3, Plt Count 285, MPV 8.1, Neut % (Auto) 63.2, Lymph % (Auto) 27.9, Sunflower % (Auto) 6.7, Eos % (Auto) 1.7, Baso % (Auto) 0.5, Neut # (Auto) 5.1, Lymph # (Auto) 2.2, Sunflower # (Auto) 0.5, Eos # (Auto) 0.1, Baso # (Auto) 0.0 09/05/22 06:07: Sodium 138, Potassium 3.8, Chloride 106, Carbon Dioxide 27, Anion Gap 8.8, BUN 16, Creatinine 0.70, Estimated Creat Clear 85, Estimated GFR 85, Est GFR ( Amer) 102, Glucose 129 H, Calcium 8.3 L, Troponin I 0.32 H I & O for Last 24 hours: Intake & Output 09/02/22 09/03/22 09/04/22 09/05/22 23:59 23:59 23:59 23:59 Intake Total 480 / 480 1160 / 1160 Output Total 0 / 0 0 / 0 Balance 480 / 480 1160 / 1160 Weight 93.525 kg 93.5 kg Constitutional Constitutional: no acute distress *Routine Respiratory Exam Respiratory: Present CTA bilaterally and symmetric chest movement *Routine Cardiovascular Exam Cardiovascular: Present RRR, Normal S1 and Normal S2 *Routine Abdominal Exam Abdominal: Present soft and normoactive bowel sounds; Absent tenderness *Routine Extremities Exam Extremities: Present full ROM and normal capillary refill; Absent edema *Routine Skin Exam Skin: Present intact, dry and warm Detailed Neck Exam: Thyroids Thyroid: Absent bruit Results Data Completed and Pending Labs on day of discharge: Labs from last 24 hours 09/05/22 09/05/22 09/04/22 06:07 06:07 16:30 WBC 8.0 RBC 4.81 Hgb 14.4 Hct 45.2 MCV 93.9 MCH 29.8 MCHC 31.8 RDW 13.3 Plt Count 285 MPV 8.1 Neut % (Auto) 63.2 Lymph % (Auto) 27.9 Sunflower % (Auto) 6.7 Eos % (Auto) 1.7 Baso % (Auto) 0.5 Neut # (Auto) 5.1 Lymph # (Auto) 2.2 Sunflower # (Auto) 0.5 Eos # (Auto) 0.1 Baso # (Auto) 0.0 APTT Sodium 138 Potassium 3.8 Chloride 106 Carbon Dioxide 27 Anion Gap 8.8 BUN 16 Creatinine 0.70 Estimated Creat Clear 85 Estimated GFR 85 Est GFR ( Amer) 102 Glucose 129 H Calcium 8.
--- NOTE | 2022-09-05 09:33 | HMH.PHAINT1 ---
Pharmacy Intervention Comments: Counseled patient on new Clopidogrel to START and DOSE CHANGE of Aspirin. Patient expressed understanding of medications' indication, dose, route, frequency, and potential side effects.
--- NOTE | 2022-09-05 09:42 | EXP.CARD.PN ---
Subjective Subjective Date: 09/05/22 Time: 08:30 Principal diagnosis: elevated troponin, chest pain Interval history: This is a 61-year-old white female who presented to the emergency department with complaints of shortness of breath. The patient did have an elevated troponin at 0.46. She underwent left cardiac catheterization yesterday and was found to have no atherosclerotic heart disease but did have a myocardial bridge to her LAD. She also underwent CTA of the pulmonary arteries yesterday which showed no PE. This morning she denies any chest pain or pressure. She denies any shortness of breath or edema. She denies any fever, chills, nausea, vomiting, diarrhea, PND or orthopnea. Left heart cath shows The left main artery Normal The left anterior descending artery Is proximally normal and has a small focal myocardial bridge compressing at 40 to 50% along a tortuous bend in the mid LAD The circumflex artery Dominant normal The right coronary artery Vestigial normal The QUILES ventriculogram reveals Normal 65% The left ventricular end-diastolic pressure 15 mmHg IMPRESSION No atherosclerotic plaque within the coronary arteries Clinically insignificant myocardial bridge involving the mid LAD along a tortuous bend Normal ejection fraction Normal LVEDP PLAN 1. Noncardiac evaluation for elevated troponin 2. Consider pulmonary artery CTA gram Exam Data for Last 24 hours Vital signs and Labs for Last 24 Hours: Temp Pulse Resp BP Pulse Ox 98.0 F 70 18 155/76 H 97 09/05/22 07:25 09/05/22 07:25 09/05/22 07:25 09/05/22 07:25 09/05/22 07:25 Laboratory Results - last 24 hr 09/04/22 08:45: Troponin I 0.46 H 09/04/22 12:13: Troponin I 0.86 H 09/04/22 13:32: APTT 23.0 L 09/04/22 16:30: Troponin I 1.05 H 09/05/22 06:07: WBC 8.0, RBC 4.81, Hgb 14.4, Hct 45.2, MCV 93.9, MCH 29.8, MCHC 31.8, RDW 13.3, Plt Count 285, MPV 8.1, Neut % (Auto) 63.2, Lymph % (Auto) 27.9, Bacon % (Auto) 6.7, Eos % (Auto) 1.7, Baso % (Auto) 0.5, Neut # (Auto) 5.1, Lymph # (Auto) 2.2, Bacon # (Auto) 0.5, Eos # (Auto) 0.1, Baso # (Auto) 0.0 09/05/22 06:07: Sodium 138, Potassium 3.8, Chloride 106, Carbon Dioxide 27, Anion Gap 8.8, BUN 16, Creatinine 0.70, Estimated Creat Clear 85, Estimated GFR 85, Est GFR ( Amer) 102, Glucose 129 H, Calcium 8.3 L, Troponin I 0.32 H I & O for Last 24 hours: Intake & Output 09/02/22 09/03/22 09/04/22 09/05/22 23:59 23:59 23:59 23:59 Intake Total 480 / 480 1160 / 1160 Output Total 0 / 0 0 / 0 Balance 480 / 480 1160 / 1160 Weight 206 lb 3 oz 206 lb 2.115 oz Constitutional Constitutional: no acute distress and obese *Routine HEENT Exam Head: Present normocephalic and atraumatic ENT: Present mucous membranes moist *Routine Neck Exam Neck: Present supple, full ROM and normal carotid upstroke; Absent JVD, carotid bruit or lymphadenopathy *Routine Respiratory Exam Respiratory: Present CTA bilaterally, normal respiratory effort, able to speak in complete sentences and symmetric chest movement *Routine Cardiovascular Exam Cardiovascular: Present RRR, Normal S1 and Normal S2; Absent murmur or gallop *Routine Abdominal Exam Abdominal: Present soft and normoactive bowel sounds; Absent tenderness, distended or organomegaly *Routine Extremities Exam Extremities: Present full ROM, pulses intact and normal capillary refill; Absent cyanosis, clubbing or edema *Routine Skin Exam Skin: Present intact and warm; Absent erythema *Routine Neurological Exam Neurological: Present alert, oriented X3 and CN II-XII intact; Absent sensory deficit or motor deficit Routine Psychiatric Exam Psychiatric: Present normal affect Progress Note: A&P Assessment and plan (1) Elevated troponin: Status: Acute (2) Hypertensive disorder: Status: Chronic (3) HLD (hyperlipidemia): Status: Chronic (4) Hx-TIA (transient ischemic attack): Status: Acute (5) Myocardial bridge: Status: Acute Assessment and Plan A
--- NOTE | 2022-09-05 09:56 | PC.NURSE ---
Called manager labor relations about duplicate communication orders. Patient not going to lab for any procedures.
--- NOTE | 2022-09-06 13:37 | CARE MANAGER ---
Spoke with patient for post-discharge phone interview, no issues noted.
== END 2022-09-05 10:36 | disposition home or self-care (01) | DRG 287 ==
LOC: ER 01:51 → 2ND 08:49
PROVIDERS: Internal Medicine; Nurse Practitioner Acute Care; Admitting Provider Internal Medicine; Emergency Provider Emergency Medicine; PCP Internal Medicine; Visit Provider Internal Medicine
PROC: 4A023N7 Measurement of Cardiac Sampling and Pressure, Left Heart, Percutaneous Approach (ICD-10-PCS; principal; 2022-09-04 10:30)
DX: I25.110 Atherosclerotic heart disease of native coronary artery with unstable angina pectoris (principal); Q24.5 Malformation of coronary vessels; E78.5 Hyperlipidemia, unspecified; I10 Essential (primary) hypertension; Z86.73 Personal history of transient ischemic attack (TIA), and cerebral infarction without residual deficits; Z87.891 Personal history of nicotine dependence; Z79.899 Other long term (current) drug therapy
CPT/HCPCS: 36415; 71046; 71275; 80048; 80053; 80061; 83735; 84439; 84443; 84484; 85025; 85651; 85730; 86140; 93005; 93306; 93458; 99152; 99285; C1725; C1769; C9803; G0378; J1644; Q9967; U0003; U0005

== ENCOUNTER → 2022-09-11 08:44 | Outpatient (CLI) | payer BC, SELFPAY ==
[2022-09-11 09:02] LABS: Hematocrit 46.7 % (37.0-47.0)
[2022-09-11 09:23] LABS: Blood Urea Nitrogen 20 mg/dl (7-17); Estimated Glomerular Filt Rate 72 ml/min (>60); GFR (African American) 88 ML/MIN (>60)
== END ==
PROVIDERS: Internal Medicine; PCP Internal Medicine; Visit Provider Internal Medicine
DX: I21.4 Non-ST elevation (NSTEMI) myocardial infarction (principal)
CPT/HCPCS: 36415; 82565; 84520; 85014; 85018

== ENCOUNTER → 2023-01-03 07:57 | Outpatient (CLI) | payer BC, SELFPAY ==
--- NOTE | 2023-01-03 08:14 | MM_ITS ---
PROCEDURE INFORMATION: Exam: MG Bilateral Screening 3D Mammography Exam date and time: 01/03/2023 8:02 AM Age: 62 years old Clinical indication: Screening mammogram TECHNIQUE: Imaging protocol: Bilateral Screening tomosynthesis and 2D mammography including computer-aided detection (CAD) when performed. COMPARISON: 1. MG MM DIG SCREENING MAMM BI W/CAD 09/15/2021 3:26 PM 2. MG MM DIG SCREENING MAMM BI W/CAD 09/06/2020 4:36 PM 3. MG MM DIG SCREENING MAMM BI W/CAD 02/17/2019 4:56 PM 4. MG SCBI MM Dig screening mamm BI w/CAD 11/05/2017 4:24 PM FINDINGS: MAMMOGRAPHY: Breast composition: There are scattered areas of fibroglandular density. Mass: None. Architectural distortion: No new or suspicious architectural distortion. Calcifications: No new or suspicious calcifications are present Asymmetric density: No new or suspicious asymmetric density is present Skin thickening: None. Axillary adenopathy: None. IMPRESSION: No mammographic evidence of malignancy. Recommend annual screening mammography unless otherwise clinically indicated. ASSESSMENT: BI-RADS category 1: Negative
== END ==
PROVIDERS: PCP Internal Medicine; Visit Provider Internal Medicine
DX: Z12.31 Encounter for screening mammogram for malignant neoplasm of breast (principal)
CPT/HCPCS: 77063; 77067

== ENCOUNTER → 2023-01-05 10:06 | Outpatient (CLI) | payer BC, SELFPAY ==
--- NOTE | 2023-01-05 10:09 | XR_ITS ---
FINAL REPORT CLINICAL HISTORY: right knee pain FINDINGS: Right knee Three views were obtained. There is no acute fracture or dislocation. There are mild and moderate degenerative changes with mild medial compartment narrowing. No joint effusion is identified. No soft tissue abnormality is identified. IMPRESSION: Degenerative changes as above. Reviewed, Interpreted and Dictated by Jose Palomo III, MD Transcribed by Tosha Argueta Authenticated and [facility]
--- NOTE | 2023-01-05 10:09 | XR_ITS ---
FINAL REPORT CLINICAL HISTORY: foot pain FINDINGS: Left foot Three views were obtained. There is no acute fracture or dislocation. There are mild and moderate degenerative changes. Calcaneal spurs are identified. There is calcification in the region of the distal Achilles tendon. IMPRESSION: Degenerative changes as above. Reviewed, Interpreted and Dictated by Jose Palomo III, MD Transcribed by Tosha Argueta Authenticated and [facility]
--- NOTE | 2023-01-05 10:09 | XR_ITS ---
FINAL REPORT CLINICAL HISTORY: foot pain FINDINGS: Right foot Three views were obtained. There is no acute fracture or dislocation. There are mild and moderate degenerative changes. Calcaneal spurs are identified. No soft tissue abnormality is identified. IMPRESSION: Degenerative changes as above. Reviewed, Interpreted and Dictated by Jose Palomo III, MD Transcribed by Tosha Argueta Authenticated and . [facility]
--- NOTE | 2023-01-05 10:09 | XR_ITS ---
FINAL REPORT CLINICAL HISTORY: left knee pain FINDINGS: Left knee Three views were obtained. There is no acute fracture or dislocation. There are mild and moderate degenerative changes with mild medial compartment narrowing. No joint effusion is identified. No soft tissue abnormality is identified. IMPRESSION: Degenerative changes as above. Reviewed, Interpreted and Dictated by Jose Palomo III, MD Transcribed by Tosha Argueta Authenticated and [facility]
== END ==
PROVIDERS: PCP Internal Medicine; Visit Provider Orthopaedic Surgery
DX: M79.671 Pain in right foot (principal); M79.672 Pain in left foot; M25.562 Pain in left knee; M25.561 Pain in right knee
CPT/HCPCS: 73562; 73630

== ENCOUNTER 2023-03-02 06:36 | Day surgery (SDC) | payer BC, SELFPAY ==
[2023-02-27 13:46] VITALS: BMI 36.0
[2023-03-02 07:06] VITALS: BP 182/72; PULSE 64; RESP 18; TEMP 36.2; O2SAT 96
[2023-03-02 07:30] VITALS: O2SAT 99
--- NOTE | 2023-03-02 07:56 | P.PCN_ITS ---
Procedure: Date: 03/02/23 Patient Date of :: 1960 Procedure Performed:: Total colonoscopy to terminal ileum with multiple polypectomy using snare and biopsy forceps Indications:: Patient is a 62-year-old female. She has family history of colon cancer in her father. She had a colonoscopy with Dr. Gomes in 2009 with apparent hyperplastic polyps removed. I performed colonoscopy in 2013. Recommended repeat colonoscopy within 5 years. She is scheduled for surveillance colonoscopy. Performing Provider:: Jose Plasencia MD Referring Provider:: Bernard Ordonez MD Sedation:: MAC sedation Procedure:: Patient history was obtained and appropriate physical examination was performed. Patient's medications and allergies were reviewed. Informed consent was obtained after explaining the benefits, alternatives, and risks of the procedure including, but not limited to, bleeding, perforation, missed lesions, and adverse reaction to anesthesia medications. Patient was transported to endoscopy procedure room. Patient was connected to monitoring devices. Throughout the procedure the patient's blood pressure, pulse, and oxygen saturations were monitored continuously. Patient identification and planned procedure were verified by the staff. Patient was positioned in lateral decubitus position. Digital anorectal exam was performed. Variable stiffness Olympus colonoscope was inserted and advanced under direct visualization to the cecum. Adequacy of the colonic preparation was noted. The colonoscope was advanced a short distance into the terminal ileum. The colonoscope was then slowly withdrawn while carefully examining the color, texture, anatomy, and integrity of the mucosoa circumferentially. Within the rectum retroflexion was performed. Colonoscope was then withdrawn. . Preparation was good. In the proximal transverse colon just distal to the hepatic flexure there was a sessile polyp removed with cold snare with residual polyp tissue removed with cold biopsy forceps. In the distal transverse colon there was a subtle hyperplastic appearing polyp removed with biopsy forceps. In the descending colon there was a subtle hyperplastic appearing polyp removed with biopsy forceps. Sigmoid colon there was a hyperplastic appearing polyp removed with biopsy forceps. Within the rectum there were hyperplastic appearing polyps removed with biopsy forceps. She has some sigmoid dive rticulosis. Retroflexion revealed internal hemorrhoids. . Findings:: Polyps as noted above Sigmoid diverticulosis Recommendations:: Repeat colonoscopy pending pathology. Given family history and polyps likely 3 to 5 years Complications:: None immediately apparent Estimated blood obtained (mL): 2 Colonoscopy Component Colonoscopy Component Was a colonoscopy performed during today's procedure?: Yes Recommended follow up colonoscopy of at least 10 years?: No If no, follow up colonoscopy recommended in ___ years?: 3-5 Reason for not recommending >/= 10 yr follow-up interval?: See above recommendations
[2023-03-02 07:58] VITALS: BP 99/63; PULSE 64; RESP 17; TEMP 36.3; O2SAT 97
[2023-03-02 08:08] VITALS: BP 111/76; PULSE 72; RESP 18; O2SAT 95
[2023-03-02 08:18] VITALS: BP 136/56; PULSE 74; RESP 18; O2SAT 96
[2023-03-02 08:28] VITALS: BP 125/72; PULSE 74; RESP 16; TEMP 36.6; O2SAT 97
--- NOTE | 2023-03-02 15:46 | P.PNANES_ITS ---
[facility] Disclaimer: The information contained in this section may have been updated after the patient was seen, as this information can be updated by other users. Medical History Bilateral knee pain Cerebrovascular accident Coronary-myocardial bridge Elevated troponin History of CVA (cerebrovascular accident) without residual deficits History of palpitations HLD (hyperlipidemia) Hx-TIA (transient ischemic attack) Hypertensive disorder Myocardial bridge Obesity Primary osteoarthritis of knees, bilateral Snoring Surgical History History of loop recorder Hx of breast biopsy Hx of cardiac cath Hx of tubal ligation Family History Brother Heart attack Father Cancer Social History (Updated 03/02/23 @ 07:06 by Aisha Godinez RN) Smoking Status: Former smoker alcohol intake: never substance use type: denies use current occupational status: employed Travel in the last 8 weeks: None household members: spouse housing: house caffeine: Yes [facility] Anesthesia Checklist Patient Identification Patient Identification: Arm Band and Family Structural Data Admitted From: Home Planned Operative Procedure/s: Colostomy Consent for Planned Operative Procedure(s) Verified: Yes Verified Documents: Surgical Consent, History and Physical, Cardiac Clearance and Pathology Report NPO Status Verified Time NPO: 00:00 Additional verifications Patient : Yes Anesthesia Reactions: Yes Hx Blood Transfusions: Yes Blood Transfusion Reaction: No Cephalosporin Allergy: No Previous Colonoscopy: Yes Airway Assessment Mallampati Score:: Class II C-Spine Mobility Assessed: Yes TMJ Mobility Assessed: Yes Dentition: Good Dentition Neurological Assessment Level of Consciousness: Awake, Alert, Appropriate and Follows Commands Hx Seizures: No Numbness or tingling in extremities: No Anesthesia Plan ASA Class: II Anesthesia Type: MAC
== END 2023-03-02 08:30 | disposition home or self-care (01) ==
PROVIDERS: PCP Internal Medicine; Visit Provider Surgery
PROC: 0DJD8ZZ Inspection of Lower Intestinal Tract, Via Natural or Artificial Opening Endoscopic (ICD-10-PCS; CPT 45385; principal; 2023-03-02 07:30)
DX: Z12.11 Encounter for screening for malignant neoplasm of colon (principal); Z86.010 Personal history of colon polyps; Z80.0 Family history of malignant neoplasm of digestive organs; D12.3 Benign neoplasm of transverse colon; K57.30 Diverticulosis of large intestine without perforation or abscess without bleeding; K64.8 Other hemorrhoids
CPT/HCPCS: 45385; 45380; J2704

== ENCOUNTER 2023-03-26 12:34 | Emergency (ER) | payer BC, SELFPAY ==
[2023-03-26 12:35] VITALS: BP 156/76; PULSE 69; RESP 16; TEMP 36.6; O2SAT 97; BMI 37.2
--- NOTE | 2023-03-26 12:36 | ECG_ITS ---
APPROVED REPORT Exam: Resting ECG HR:64 bpm ECG Measurements Heart Rate 64 AXES MN 126 P 41 QRSd 92 QRS 50 QT 361 T 60 QTc 370 Conclusion SINUS RHYTHM NORMAL ECG UNCONFIRMED REPORT Electronically signed by : Macho Slater MD 03/26/2023 20:18:16
--- NOTE | 2023-03-26 12:42 | CT_ITS ---
FINAL REPORT CLINICAL HISTORY: vision loss L eye, similar to prior stroke COMPARISON: None FINDINGS: Axial images of the head were obtained without contrast. Coronal and sagittal reformatted images were also obtained.This study was performed with techniques to keep radiation doses as low as reasonably achievable (ALARA). Individualized dose reduction techniques using automated exposure control or adjustment of mA and/or kV according to the patient's size were employed. There is no evidence of intracranial hemorrhage or mass. There is a focal low density in the left posterior occipital lobe, that appears to represent an area of encephalomalacia. The ventricular size is within normal limits. There is no evidence of shift of the midline structures. No abnormal extra axial fluid collection is identified. No skull abnormality is seen on the bone window images. IMPRESSION: No acute intracranial abnormality. Focal area of encephalomalacia left posterior occipital lobe. Reviewed, Interpreted and Dictated by Jose Palomo III, MD Transcribed by Annemarie Santizo Authenticated and [facility]
--- NOTE | 2023-03-26 12:42 | CT_ITS ---
FINAL REPORT TECHNIQUE: Thin section axial CT with IV contrast supplemented with multiplanar reconstruction under CT angiogram protocol. This study was performed with techniques to keep radiation doses as low as reasonably achievable (ALARA). Individualized dose reduction techniques using automated exposure control or adjustment of mA and/or kV according to the patient's size were employed. NASCET criteria was utilized during interpretation. CLINICAL HISTORY: vision loss L eye, similar to prior stroke COMPARISON: None FINDINGS: Aortic arch: Arch shows no significant narrowing. Great vessel origins are widely patent. Right carotid: No significant stenosis is seen of the cervical common or internal carotid artery. Left carotid: No significant stenosis is seen of the cervical common or internal carotid artery. Vertebral: The vertebral arteries are codominant. No significant focal stenosis is present. IMPRESSION: No significant focal areas of abnormality or stenosis are seen in the cervical vessels. Reviewed, Interpreted and Dictated by Jose Palomo III, MD Transcribed by Annemarie Santizo Authenticated and [facility]
--- NOTE | 2023-03-26 12:42 | CT_ITS ---
FINAL REPORT TECHNIQUE: Thin section axial CT with IV contrast supplemented with multiplanar reconstruction under CT angiogram protocol. 3-D reconstructions were performed. This study was performed with techniques to keep radiation doses as low as reasonably achievable (ALARA). Individualized dose reduction techniques using automated exposure control or adjustment of mA and/or kV according to the patient's size were employed. CLINICAL HISTORY: vision loss L eye, similar to prior stroke COMPARISON: None FINDINGS: The distal vertebral, basilar and distal internal carotid arteries have an unremarkable appearance. No aneurysm is seen. Major intracranial vessels are patent without significant stenosis. IMPRESSION: No significant intracranial vascular abnormality identified. Reviewed, Interpreted and Dictated by Jose Palomo III, MD Transcribed by Annemarie Santizo Authenticated and [facility]
--- NOTE | 2023-03-26 12:45 | HMH.EDGENADL ---
Discharge Plan Disposition Patient Disposition: Home, Self-Care Condition: Good Prescriptions Prescriptions: No Action lorazepam 0.5 mg tablet 0.5 mg PO TID PRN (Reason: Anxiety) Patient Comments: TAKE 1 TABLET BY MOUTH THREE TIMES DAILY NEEDED FOR NERVES atenolol 50 mg tablet 50 mg PO DAILY atorvastatin [Lipitor] 40 mg tablet 40 mg PO DAILY nitroglycerin 0.4 mg tablet, sublingual 0.4 mg sublingual NEEDED PRN (Reason: cp) aspirin [Adult Low Dose Aspirin] 81 mg tablet,delayed release (DR/EC) 81 mg PO DAILY Qty: 90 3RF clopidogrel [Plavix] 75 mg tablet 75 mg PO DAILY losartan 100 mg tablet 100 mg PO DAILY Clenpiq 10 mg-3.5 gram- 12 gram/160 mL solution 160 ml PO DAILY Rx Instructions: take first dose at 5-9PM evening before colonoscopy; 2nd dose the next day approximately 5 hrs before colonoscopy hydrochlorothiazide 12.5 mg tablet 12.5 mg PO DAILY Rx Instructions: Take 1 tablet by mouth once daily Referrals Follow up/Referrals: Bernard Ordonez MD [Primary Care Provider] - See instructions Activity Restrictions/Add. Instructions Additional Instructions/Restrictions: You were evaluated in the emergency department today. Please follow-up with [facility] at . They will contact you with an appointment. If you have not heard from them in 24 to 48 hours, please call them to inquire about your follow-up. Follow-up with your primary care provider over the next 48 hours. Continue taking your aspirin, Plavix, and your statin at home as prescribed. Return to the emergency department for any new or worsening symptoms. Do not drive or operate heavy machinery until you are cleared by neurology Clinical Impressions Clinical Impression: Visual field defect of left eye, Encephalomalacia with cerebral infarction Stand Alone Forms Stand Alone Forms: Work/School Release Instructions Patient Instructions: DI for Stroke-Ischemic Discharge ED Provider: Poornima Maloney General Adult HPI General Chief complaint: Neuro Symptoms/Deficit Stated complaint: Eye Problem Time Seen by Provider: 03/26/23 12:39 History of Present Illness HPI narrative: This patient is a 62-year-old female with a history of CVA, NSTEMI, hypertension, and hyperlipidemia presented to the emergency department for evaluation with concern for visual loss in the lower outer aspect of her visual field in her left eye. She notes that she went to bed last night around 12:30 AM (03/26/23) normal, however she woke up this morning with visual loss. She notes that if she looks at the 5 on a clock face, she is not able to see the 6. She notes that this is similar to her prior stroke, which was in 2017. She notes that she was admitted to [facility] for this. I was able to review records from [facility], which documented concern for cardioembolic stroke in the setting of atrial tachycardia. Patient notes that she is on Plavix, but denies use of other anticoagulation. She denies any other symptoms, such as numbness, tingling, weakness, balance issues, or other concerns. She does note that she has a mild headache at this time. Related Data Home Medications Medication Instructions Recorded Confirmed atenolol 50 mg tablet 50 mg PO DAILY High blood pressure 08/08/17 03/02/23 atorvastatin 40 mg tablet (Lipitor) 40 mg PO DAILY Cholesterol 08/08/17 03/02/23 lorazepam 0.5 mg tablet 0.5 mg PO TID PRN Anxiety 10/21/19 03/02/23 hydrochlorothiazide 12.5 mg tablet 12.5 mg PO DAILY High blood 09/04/22 03/02/23 pressure nitroglycerin 0.4 mg sublingual 0.4 mg sublingual NEEDED PRN cp 12/27/22 03/02/23 tablet clopidogrel 75 mg tablet (Plavix) 75 mg PO DAILY bloodthinner 02/27/23 03/02/23 losartan 100 mg tablet 100 mg PO DAILY bp 02/27/23 03/02/23 sod picosulf 10 mg-magnes 3.5 160 ml PO DAILY bowel prep 02/27/23 03/02/23 gram-citric 12 gram/160 mL oral solution (Clenpiq) Pr
[2023-03-26 12:52] LABS: Basophils # 0.1 K/mm3 (0-0.2); Basophils % 1.2 % (0.1-2.0); Eosinophils # 0.2 K/mm3 (0.0-0.4); Eosinophils % 2.3 % (0.1-12.0); Hematocrit 46.6 % (37.0-47.0); Hemoglobin 15.9 g/dL (12.2-16.2); Lymphocytes # 1.8 K/mm3 (0.7-4.5); Lymphocytes % 24.6 % (10-50); Mean Corpuscular HGB Conc 34.1 g/dL (31.8-35.4); Mean Corpuscular Hemoglobin 32.6 pg (27.0-31.2); Mean Corpuscular Volume 95.6 fl (81-99); Mean Platelet Volume 8.3 fl (7.4-10.4); Monocytes # 0.4 K/mm3 (0.1-1.0); Monocytes % 5.5 % (1.7-9.3); Neutrophils # 4.9 K/mm3 (1.8-7.8); Neutrophils % 66.3 % (37.0-80.0); Platelet Count 278 K/mm3 (142-424); Red Blood Count 4.88 M/mm3 (4.20-5.40); Red Cell Distribution Width 13.8 % (11.5-17.5); White Blood Count 7.3 K/mm3 (4.8-10.8)
[2023-03-26 12:58] LABS: Chloride 98 mmol/L (98-107); Sodium 138 mmol/L (136-145)
--- NOTE | 2023-03-26 12:58 | PC.NURSE ---
Pt gone to RAD via stretcher
[2023-03-26 13:01] LABS: Blood Urea Nitrogen 14 mg/dl (7-17); Carbon Dioxide 33 mmol/L (22.0-30.0); Creatinine Clearance Estimated 85 mL/min (50-200); Estimated Glomerular Filt Rate 63 ml/min (>60); GFR (African American) 76 ML/MIN (>60)
[2023-03-26 13:02] LABS: Calcium 9.8 mg/dl (8.4-10.2); Glucose 134 mg/dl (74-100)
[2023-03-26 13:06] LABS: Activated Partial Thrombo Time 24.5 seconds (22.8-30.6); INR 1.01 (0.9-1.1); Prothrombin Time 10.9 seconds (10.1-12.5)
[2023-03-26 13:30] VITALS: BP 150/75; PULSE 60; RESP 13; O2SAT 98
--- NOTE | 2023-03-26 13:31 | PC.NURSE ---
visual acuity bilateral 20/20 right eye 20/20 left 20/70
[2023-03-26 13:45] LABS: POC Glucose,Bedside 122 (70-110)
[2023-03-26 14:00] VITALS: BP 151/74; PULSE 61; RESP 14; O2SAT 100
[2023-03-26 14:30] VITALS: BP 152/77; PULSE 65; RESP 18; O2SAT 97
[2023-03-26 14:58] VITALS: BP 152/77; PULSE 62; RESP 16; TEMP 36.7
== END 2023-03-26 14:59 | disposition home or self-care (01) ==
PROVIDERS: Emergency Provider Emergency Medicine; PCP Internal Medicine
DX: G93.89 Other specified disorders of brain (principal); H53.40 Unspecified visual field defects; I11.9 Hypertensive heart disease without heart failure; I20.9 Angina pectoris, unspecified; E66.9 Obesity, unspecified; E78.5 Hyperlipidemia, unspecified; Z86.73 Personal history of transient ischemic attack (TIA), and cerebral infarction without residual deficits; Z87.891 Personal history of nicotine dependence
CPT/HCPCS: 70450; 70496; 70498; 80048; 82962; 85025; 85610; 85730; 93005; 99285; Q9967

== ENCOUNTER → 2023-03-30 11:15 | Outpatient (CLI) | payer BC, SELFPAY ==
[2023-03-30 11:42] LABS: Chol/HDL Ratio 3.9 (1-3.5); Cholesterol 164 mg/dl (140-200); HDL Cholesterol 42 mg/dl (40-60); Triglycerides 160 mg/dl (30-150); VLDL Cholesterol 32 mg/dL (0-40)
[2023-03-30 11:48] LABS: C-Reactive Protein 1.3 mg/L (0-4)
[2023-03-30 11:50] LABS: Erythrocyte Sedimentation Rate 13 mm/hr (0-30)
[2023-03-30 11:53] LABS: Direct LDL Cholesterol 91.33 mg/dL (100-129)
== END ==
PROVIDERS: PCP Internal Medicine; Visit Provider Internal Medicine
DX: I69.312 Visuospatial deficit and spatial neglect following cerebral infarction (principal); I10 Essential (primary) hypertension; E78.5 Hyperlipidemia, unspecified; E66.8 Other obesity; Z68.37 Body mass index [BMI] 37.0-37.9, adult; Z87.891 Personal history of nicotine dependence
CPT/HCPCS: 80061; 85651; 86140

== ENCOUNTER → 2023-04-17 10:08 | Outpatient (CLI) | payer BC, SELFPAY | LOC: RT 10:09 | PROVIDERS: PCP Internal Medicine; Visit Provider Nurse Practitioner Family | DX: E78.5 Hyperlipidemia, unspecified (principal); H53.9 Unspecified visual disturbance; I10 Essential (primary) hypertension; I21.4 Non-ST elevation (NSTEMI) myocardial infarction; Q24.5 Malformation of coronary vessels; Z86.73 Personal history of transient ischemic attack (TIA), and cerebral infarction without residual deficits; Z87.891 Personal history of nicotine dependence | CPT/HCPCS: 93270 ==

== ENCOUNTER → 2023-04-17 16:31 | Outpatient (CLI) | payer BC, SELFPAY ==
--- NOTE | 2023-04-17 16:31 | MR_ITS ---
PROCEDURE INFORMATION: Exam: MR Head Without and With Contrast Exam date and time: 04/17/2023 4:52 PM Age: 62 years old Clinical indication: Visual disturbance; Additional info: Right occipital CVA suspected. Loss of balance. Blind spots bilateral eyes TECHNIQUE: Imaging protocol: Magnetic resonance imaging of the head without and with contrast. Contrast material: PROHANCE; Contrast volume: 20 ml; Contrast route: IV; COMPARISON: CT ANGIO HEAD 03/26/2023 1:01 PM FINDINGS: Brain: Small focus of mild restricted diffusion within the right posteromedial occipital lobe cortex associated with T2/FLAIR hyperintense signal and enhancement. Small focus of encephalomalacia with a thin rim of gliosis within the posteroinferior left occipital lobe. Mild foci of T2/FLAIR hyperintense signal within the bilateral frontal subcortical and periventricular white matter. Diffuse brain parenchymal volume loss. No abnormal foci of susceptibility. Cerebral ventricles: Ex vacuo dilatation of the ventricles. Bones/joints: Unremarkable. Paranasal sinuses: Normal as visualized. No acute sinusitis. Mastoid air cells: Normal as visualized. No mastoid effusion. Orbital cavities: Unremarkable. Soft tissues: Unremarkable. IMPRESSION: 1. Subacute infarct within the right posteromedial occipital lobe cortex. 2. Small old left posteroinferior occipital lobe infarct. 3. Additional foci of T2/FLAIR hyperintense signal within the bilateral frontal subcortical and periventricular white matter likely related to chronic small-vessel ischemic changes, although this finding can also be associated with demyelination, migraine headaches, or vasculitis.
== END ==
PROVIDERS: PCP Internal Medicine; Visit Provider Nurse Practitioner Family
DX: I63.9 Cerebral infarction, unspecified (principal); H53.40 Unspecified visual field defects; G47.33 Obstructive sleep apnea (adult) (pediatric); E66.9 Obesity, unspecified; Z68.38 Body mass index [BMI] 38.0-38.9, adult
CPT/HCPCS: 70553; A9576

== ENCOUNTER 2023-04-30 08:48 | Day surgery (SDC) | payer BC, SELFPAY ==
[2023-04-27 10:53] VITALS: BMI 36.8
[2023-04-30] VITALS (11 sets, daily range): BP systolic 66–124; BP diastolic 41–73; PULSE 59–76; RESP 12–18; TEMP 36.2–36.8; O2SAT 90–99
--- NOTE | 2023-04-30 09:08 | CA_ITS ---
APPROVED REPORT EXAM: Comprehensive 2D, Doppler, and color-flow Echocardiogram Editor: Lelo Gupta RVT Ht: 5 ft 3 in Wt: 219lbs BSA: 2.01 BP: 155/76 mmHg Indications: CRYPTOGENIC STROKE,EX SMOKER,HTN,HLD Procedure After obtaining informed consent, patient underwent transesophageal echo in the [facility]. Type of Sedation : MAC Sedation was administered by Jules Perez C.R.N.A. Sedation start time: 10:50 Case end Time: 11:15 Sedation was achieved intravenously with: Transesophageal probe was inserted and advanced into esophagus without difficulty by Dr. Annabelle Hairston. The SHAWNA was performed without complications. Throughout the procedure, the blood pressure, pulse oximetry, cardiac rhythm, and rate were monitored. The patient tolerated the procedure without adverse effects. Recovery from conscious sedation was uneventful and vital signs were stable. Left Ventricle The left ventricle is normal size. The left ventricular systolic function is low normal. There is normal left ventricular wall thickness. There is normal LV segmental wall motion. The left ventricular diastolic function is normal. LVEF is 50-55%. Right Ventricle The right ventricle is normal size. The right ventricular systolic function is normal. Atria The left atrium size is normal. The right atrium size is normal. Color Doppler suggests the presence of a small ASD with intermittent left to right interatrial shunt. Saline bubble contrast intravenous injection confirms the presence of ASD. Aortic Valve The aortic valve is normal in structure. There is no aortic valvular stenosis. Mild aortic regurgitation. Mitral Valve The mitral valve is normal in structure. No evidence of mitral valve stenosis. Trace mitral regurgitation. Tricuspid Valve The tricuspid valve leaflets are thin and pliable. Trace tricuspid regurgitation. There is insufficient TR jet to estimate RVSP. Pulmonic Valve The pulmonary valve is normal in structure. Trace pulmonic regurgitation. Great Vessels The aortic root is normal in size. The ascending aorta is normal in size. Pericardium There is no pericardial effusion. Other Information Study Quality: Fair Conclusion Low normal LV systolic function (LVEF 50-55%). No significant valvular stenosis or regurgitation. Color Doppler suggests the presence of a small ASD with intermittent left to right interatrial shunt. Saline bubble contrast intravenous injection confirms the presence of ASD. In the setting of known stroke and presence of small ASD, referral for possible ASD closure. Also, systemic anticoagulation is reasonable in the setting of suspected embolic or paradoxical stroke etiology. Electronically signed by : Annabelle Hairston MD 05/04/2023 22:06:05
--- NOTE | 2023-04-30 09:31 | ECG_ITS ---
APPROVED REPORT Exam: Resting ECG HR:61 bpm ECG Measurements Heart Rate 61 AXES AR 128 P 15 QRSd 93 QRS 98 QT 394 T 30 QTc 397 Conclusion SINUS RHYTHM BORDERLINE RIGHT AXIS DEVIATION [QRS AXIS > 90] BORDERLINE ECG UNCONFIRMED REPORT Electronically signed by : Macho Slater MD 04/30/2023 17:35:13
[2023-04-30 09:54] LABS: Chloride 100 mmol/L (98-107)
[2023-04-30 09:55] LABS: Potassium 3.9 mmoL/L (3.5-5.1); Sodium 138 mmol/L (136-145)
--- NOTE | 2023-04-30 09:55 | P.PNANES_ITS ---
[facility] Disclaimer: The information contained in this section may have been updated after the patient was seen, as this information can be updated by other users. Medical History Bilateral knee pain Cardioembolic stroke Cerebrovascular accident Coronary-myocardial bridge Cryptogenic stroke Elevated troponin Emotional instability History of CVA (cerebrovascular accident) without residual deficits History of palpitations HLD (hyperlipidemia) Hx-TIA (transient ischemic attack) Hypertensive disorder Myocardial bridge Obesity Primary osteoarthritis of knees, bilateral Snoring Visual disturbances Surgical History History of loop recorder Hx of breast biopsy Hx of cardiac cath Hx of tubal ligation Family History Brother Heart attack Father Cancer Colon Social History Smoking Status: Former smoker alcohol intake: never substance use type: denies use current occupational status: employed Travel in the last 8 weeks: None household members: spouse housing: house caffeine: Yes [facility] Anesthesia Checklist Patient Identification Patient Identification: Arm Band Structural Data Admitted From: Home Planned Operative Procedure/s: SHAWNA/Loop Recorder Insertion Consent for Planned Operative Procedure(s) Verified: Yes Verified Documents: Surgical Consent and History and Physical NPO Status Verified Time NPO: 00:00 Additional verifications Anesthesia Reactions: Yes Hx Blood Transfusions: Yes Blood Transfusion Reaction: No Airway Assessment Mallampati Score:: Class II C-Spine Mobility Assessed: Yes TMJ Mobility Assessed: Yes Dentition: Good Dentition Neurological Assessment Level of Consciousness: Awake and Alert Anesthesia Plan Anesthesia Risk discussed: Yes Anesthesia Plan: Verified ASA Class: III Anesthesia Type: MAC
[2023-04-30 09:56] LABS: Basophils # 0.1 K/mm3 (0-0.2); Basophils % 1.1 % (0.1-2.0); Eosinophils # 0.2 K/mm3 (0.0-0.4); Eosinophils % 2.9 % (0.1-12.0); Hemoglobin 15.3 g/dL (12.2-16.2); Lymphocytes # 1.6 K/mm3 (0.7-4.5); Lymphocytes % 31.5 % (10-50); Mean Corpuscular HGB Conc 33.2 g/dL (31.8-35.4); Mean Corpuscular Hemoglobin 31.2 pg (27.0-31.2); Mean Corpuscular Volume 93.8 fl (81-99); Mean Platelet Volume 8.2 fl (7.4-10.4); Monocytes # 0.4 K/mm3 (0.1-1.0); Monocytes % 6.7 % (1.7-9.3); Neutrophils % 57.8 % (37.0-80.0); Platelet Count 280 K/mm3 (142-424); Red Cell Distribution Width 13.4 % (11.5-17.5); White Blood Count 5.2 K/mm3 (4.8-10.8)
[2023-04-30 09:57] LABS: Blood Urea Nitrogen 19 mg/dl (7-17); Creatinine Clearance Estimated 80 mL/min (50-200); Estimated Glomerular Filt Rate 50 ml/min (>60); GFR (African American) 61 ML/MIN (>60)
[2023-04-30 09:58] LABS: Calcium 9.3 mg/dl (8.4-10.2); Carbon Dioxide 33 mmol/L (22.0-30.0); Glucose 183 mg/dl (74-100)
[2023-04-30 10:00] LABS: Prothrombin Time 10.8 seconds (10.1-12.5)
[2023-04-30 10:10] LABS: Anion Gap 8.9 mEq/L (5-15)
--- NOTE | 2023-04-30 11:51 | P.PCN_ITS ---
[facility] Loop Recorder Date: 04/30/23 Time: 11:51 Procedure Performed:: Loop recorder removal Loop recorder insertion Indication:: Cryptogenic stroke Technique:: Patient was seen in conjuction with SHAWNA with loop recorder extraction and implantation of new device to be performed after SHAWNA. After informed consent obtained, 1% lidocaine with epinephrine was used to anesthetize the site along the left anterior aspect of the chest near the sternal border directly over the implanted loop recorder. Using a surgical scalpel, dissection was made down to the existing device with forceps used for blunt dissection and removal of the existing device. Surgical glue was used to help with closure of that incision. Next, using the preformed scalpel, an incision was made below the previous incision and using the supplied preloaded apparatus, the loop recorder was placed subcutaneously without difficulty. Following the deployment of the loop recorder interrogation of the device was performed to ensure appropriate voltage was being detected. Once this was verified, Steri-Strips were placed over the incision and the patient was prepped to discharge home. Patient tolerated the procedure well with minimal discomfort. Impression:: Successful removal of previous loop recorder. Successful insertion of new loop recorder Serial Number:: [employer]ience Model [id number] Serial #[id number] Plan:: Routine postop care
--- NOTE | 2023-04-30 11:55 | SUR.OPER ---
Loop removal and new loop inserted per Irving in scope room in OR, report given to Ashley on post op care. Dermabond, steri strips, and sterile dressing applied, Rep to be arriving at noon to set up loop.
== END 2023-04-30 13:20 | disposition home or self-care (01) ==
PROVIDERS: Internal Medicine; PCP Internal Medicine; Visit Provider Internal Medicine
DX: H53.9 Unspecified visual disturbance (principal); F60.3 Borderline personality disorder; Z86.73 Personal history of transient ischemic attack (TIA), and cerebral infarction without residual deficits; Z87.891 Personal history of nicotine dependence; Z79.899 Other long term (current) drug therapy; Z79.01 Long term (current) use of anticoagulants; R42 Dizziness and giddiness
CPT/HCPCS: 33285; 80048; 85025; 85610; 93005; 93270; 93312; 93319; C1764

== ENCOUNTER 2023-08-01 10:26 | Outpatient (CLI) | payer BC, SELFPAY ==
[2023-08-01 11:24] LABS: Basophils % 0.9 % (0.1-2.0); Eosinophils # 0.1 K/mm3 (0.0-0.4); Eosinophils % 2.3 % (0.1-12.0); Hematocrit 41.2 % (37.0-47.0); Hemoglobin 13.8 g/dL (12.2-16.2); Lymphocytes # 1.5 K/mm3 (0.7-4.5); Mean Corpuscular HGB Conc 33.5 g/dL (31.8-35.4); Mean Corpuscular Volume 95.6 fl (81-99); Mean Platelet Volume 8.5 fl (7.4-10.4); Monocytes # 0.3 K/mm3 (0.1-1.0); Monocytes % 7.4 % (1.7-9.3); Neutrophils # 2.3 K/mm3 (1.8-7.8); Neutrophils % 54.4 % (37.0-80.0); Platelet Count 254 K/mm3 (142-424); Red Blood Count 4.31 M/mm3 (4.20-5.40); Red Cell Distribution Width 13.4 % (11.5-17.5); White Blood Count 4.2 K/mm3 (4.8-10.8)
[2023-08-01 11:55] LABS: Erythrocyte Sedimentation Rate 16 mm/hr (0-30)
[2023-08-01 15:01] LABS: Alanine Aminotransferase 40 U/L (12-78); Albumin Level 4.1 g/dl (3.5-5.0); Albumin/Globulin Ratio 1.7 (1.1-1.8); Alkaline Phosphatase 99 U/L (38-126); Anion Gap 13.2 mEq/L (5-15); Aspartate Amino Transferase 31 U/L (14-36); Bilirubin,Total 0.7 mg/dl (0.2-1.3); Blood Urea Nitrogen 16 mg/dl (7-17); Calcium 9.8 mg/dl (8.4-10.2); Carbon Dioxide 27 mmol/L (22.0-30.0); Chloride 101 mmol/L (98-107); Chol/HDL Ratio 4.6 (1-3.5); Cholesterol 160 mg/dl (140-200); Estimated Glomerular Filt Rate 56 ml/min (>60); GFR (African American) 68 ML/MIN (>60); Globulin 2.4 g/dL (1.3-3.2); Glucose 268 mg/dl (74-100); HDL Cholesterol 35 mg/dl (40-60); Potassium 4.2 mmoL/L (3.5-5.1); Sodium 137 mmol/L (136-145); Total Protein,Serum 6.5 g/dl (6.3-8.2); Triglycerides 168 mg/dl (30-150); VLDL Cholesterol 34 mg/dL (0-40)
[2023-08-01 15:12] LABS: Direct LDL Cholesterol 87.04 mg/dL (100-129)
== END 2023-08-01 23:59 ==
LOC: LAB.DROPOF 10:26
PROVIDERS: PCP Internal Medicine; Visit Provider Internal Medicine
DX: I69.312 Visuospatial deficit and spatial neglect following cerebral infarction (principal); I69.398 Other sequelae of cerebral infarction; I10 Essential (primary) hypertension; E78.5 Hyperlipidemia, unspecified; R73.9 Hyperglycemia, unspecified
CPT/HCPCS: 80053; 80061; 83036; 85025; 85651

== ENCOUNTER → 2023-08-14 20:20 | Outpatient (CLI) | payer BC, SELFPAY | LOC: SL 20:24 | PROVIDERS: PCP Internal Medicine; Visit Provider Nurse Practitioner Family | DX: G47.33 Obstructive sleep apnea (adult) (pediatric) (principal); E66.9 Obesity, unspecified; Z68.38 Body mass index [BMI] 38.0-38.9, adult | CPT/HCPCS: 95810 ==

== ENCOUNTER 2023-08-31 09:21 | Emergency (ER) | payer BC, SELFPAY ==
[2023-08-31] VITALS (13 sets, daily range): BP systolic 98–125; BP diastolic 58–81; PULSE 76–125; RESP 16–20; TEMP 36.7–36.8; O2SAT 94–97; BMI 35.2
--- NOTE | 2023-08-31 09:32 | CT_ITS ---
FINAL REPORT TECHNIQUE: Postcontrast axial images through the abdomen and pelvis were performed. This study was performed with techniques to keep radiation doses as low as reasonably achievable, (ALARA). Individualized dose reduction techniques using automated exposure control or adjustment of mA and/or kV according to the patient's size were employed. CLINICAL HISTORY: chronic diarrhea intermittent epigastric pain FINDINGS: Abdomen: There is mild atelectasis or scar in the lung bases. The liver is normal in size and attenuation. There is mild nonspecific gallbladder wall thickening. There is no biliary ductal dilatation. The spleen is unremarkable. The adrenals are normal. The pancreas is unremarkable. The kidneys enhance appropriately. The aorta is normal in caliber. No free fluid or adenopathy is identified. No findings for mechanical bowel obstruction are identified. Pelvis: The appendix is normal. There is wall thickening of the colon, greatest in the ascending colon consistent with colitis. Multiple uterine masses are seen consistent with fibroids. There is sigmoid diverticulosis without evidence of diverticulitis. The urinary bladder is unremarkable. No free fluid, free air, abscess or adenopathy is identified. IMPRESSION: Colitis, greatest involving the ascending colon. Reviewed, Interpreted and Dictated by Jose Palomo III, MD Transcribed by Tosha Argueta Authenticated and [facility]
--- NOTE | 2023-08-31 09:34 | [facility].EDGENADL ---
Discharge Plan Disposition Patient Disposition: Home, Self-Care Chief Complaint: Nausea/Vomiting/Diarrhea Prescriptions Prescriptions: No Action meloxicam 7.5 mg tablet 7.5 mg PO DAILY PRN (Reason: Pain) Patient Comments: TAKE 1 TABLET BY MOUTH ONCE DAILY gabapentin 100 mg capsule 100 mg PO HS PRN (Reason: Pain) Patient Comments: TAKE 1 CAPSULE BY MOUTH IN THE EVENING FOR LEG CRAMPS naproxen 250 mg tablet 250 mg PO BID PRN (Reason: Pain) lorazepam 0.5 mg tablet 0.5 mg PO TID PRN Patient Comments: TAKE ONE TABLET BY MOUTH THREE TIMES DAILY NEEDED FOR nerves MAY CAUSE DROWSINESS atenolol 50 mg tablet 50 mg PO DAILY atorvastatin [Lipitor] 40 mg tablet 80 mg PO DAILY nitroglycerin 0.4 mg tablet, sublingual 0.4 mg sublingual NEEDED PRN (Reason: cp) metformin 500 mg tablet 500 mg PO BID Patient Comments: TAKE 1 TABLET BY MOUTH TWICE DAILY ondansetron 4 mg tablet,disintegrating 4 mg PO DAILY PRN Patient Comments: DISSOLVE 1 TABLET IN MOUTH EVERY 8 HOURS NEEDED FOR NAUSEA AND VOMITING albuterol sulfate 90 mcg/actuation HFA aerosol inhaler inhalation Patient Comments: INHALE 2 PUFFS BY MOUTH EVERY 6 HOURS NEEDED hydrochlorothiazide 12.5 mg tablet See Rx Instructions .ROUTE .COMPLEX Qty: 90 3RF Dose Instruction: Take 1 tablet by mouth once daily Rx Instructions: Take 1 tablet by mouth once daily Eliquis 5 mg tablet 5 mg PO BID Qty: 180 3RF clopidogrel [Plavix] 75 mg tablet 75 mg PO DAILY losartan 100 mg tablet 100 mg PO DAILY Referrals Follow up/Referrals: Bernard Ordonez MD [Primary Care Provider] - See instructions Activity Restrictions/Add. Instructions Additional Instructions/Restrictions: Imodium throughout the day as described on packaging. Be sure to keep up with electrolyte rich fluids. Call your family doctor to establish care for this visit to the emergency department and schedule follow-up within 48 hours to ensure improvement. If you have any worsening of your condition or any other concerning signs or symptoms, return to the emergency department or your primary care doctor for further evaluation. Clinical Impressions Clinical Impression: Colitis, Headache, Diarrhea, Adverse drug reaction Instructions Patient Instructions: DI for Diarrhea and Traveler's Diarrhea -- Adult, DI for Diarrhea and Traveler's Diarrhea -- Child, DI for Nausea -- Adult, DI for Nausea -- Child Discharge ED Provider: Miguelito Astorga General Adult HPI <Michael Fish MD - Last Filed: 08/31/23 16:04> General Chief complaint: Nausea/Vomiting/Diarrhea Stated complaint: persistent diarrhea, stomach pain Time Seen by Provider: 08/31/23 09:32 History of Present Illness HPI narrative: Patient is a 62-year-old female with past medical history of coronary artery disease, previous CVA with residual visual problems, dyslipidemia, [id number] diabetes recently started on metformin who presents emergency department for evaluation of abdominal pain and diarrhea. Patient has had daily diarrhea approximately 1 episode a day since May that is associated with epigastric abdominal pain worse with eating, no vomiting. She was recently diagnosed with diabetes and has been taking metformin over the last 5 days and has had approximately 20 bowel movements nonbloody diarrhea per day since with similar associated epigastric pain with eating. There is associated dysuria. Due to persistent symptoms she presents here for continued evaluation. No other acute complaints at this time. Related Data Home Medications Medication Instructions Recorded Confirmed atenolol 50 mg tablet 50 mg PO DAILY High blood pressure 08/08/17 08/29/23 nitroglycerin 0.4 mg sublingual 0.4 mg sublingual NEEDED PRN cp 12/27/22 08/29/23 tablet clopidogrel 75 mg tablet (Plavix) 75 mg PO DAILY bloodthinner 02/27/23 08/29/23 losartan 100 mg tablet 100 mg PO DAILY bp 02/27/23 08/29/23 atorvastatin 40 mg tablet (Lipitor) 80 mg PO DAILY Cholesterol 04/11/23 08/29/23 gabapentin 100 mg capsule 100 mg PO HS PRN Pain 04/11/23 08/29/23 meloxicam 7.5 mg tablet 7.5 mg PO DAILY PRN Pain 04/11/23 08/29/23 naproxen 250 mg tablet 250 mg PO BID PRN Pain 04/11/23 08/29/23 lorazepam 0.5 mg tablet 0.5 mg PO TID PRN 05/08/23 08/29/23 albuterol sulfate 90 mcg/actuation inhalation 08/29/23 08/29/23 aerosol inhaler metformin 500 mg tablet 500 mg PO BID 08/29/23 08/29/23 ondansetron 4 mg disintegrating 4 mg PO DAILY PRN 08/29/23 08/29/23 tablet Previous Rx's Medication Instructions Recorded hydrochlorothiazide 12.5 mg tablet See Rx Instructions .Route 05/15/23 .COMPLEX #90 tabs apixaban 5 mg tablet (Eliquis) 5 mg PO BID #180 tabs 06/28/23 Allergies Allergy/AdvReac Type Severity Reaction Status Date / Time No Known Allergies Allergy Verified 08/29/23 10:16 [facility] <Michael Fish MD - Last Filed: 08/31/23 16:04> [facility] Disclaimer: The information contained in this section may have been updated after the patient was seen, as this information can be updated by other users. Medical History ASD (atrial septal defect) Emotional instability Cryptogenic stroke Visual disturbances Cardioembolic stroke Coronary-myocardial bridge Elevated troponin Myocardial bridge Hx-TIA (transient ischemic attack) Obesity Bilateral knee pain Primary osteoarthritis of knees, bilateral Snoring History of CVA (cerebrovascular accident) without residual deficits HLD (hyperlipidemia) History of palpitations Hypertensive disorder Cerebrovascular accident Surgical History History of loop recorder Hx of breast biopsy Hx of cardiac cath Hx of tubal ligation Family History Brother Heart attack Father Cancer Colon Social History Smoking Status: Unknown if ever smoked alcohol intake: never substance use type: denies use current occupational status: employed Travel in the last 8 weeks: None household members: spouse housing: house caffeine: Yes <Michael Fish MD - Last Filed: 08/31/23 16:04> ROS Obtained: Yes Systems reviewed as appropriate & no additional complaints except as documented Physical Exam <Michael Fish MD - Last Filed: 08/31/23 16:04> General General appearance: alert and in no apparent distress Head Head exam: atraumatic and normocephalic Eye Eye exam: Present PERRL ENT ENT exam: Present mucous membranes moist Neck Neck exam: Present normal inspection Chest Chest inspection: Present normal inspection and symmetric chest wall rise Respiratory Respiratory exam: Present normal lung sounds bilaterally; Absent respiratory distress Cardiovascular Cardiovascular exam: Present normal rhythm and tachycardia Abdominal Exam Abdominal exam: Present soft; Absent tenderness Extremities Exam Extremities exam: Present normal inspection Neurological Exam Neurological exam: Present alert Psychiatric Psychiatric exam: Present normal affect Skin Skin exam: Present warm and dry Medical Decision Making <Michael Fish MD - Last Filed: 08/31/23 16:04> Ahmet Inquiry Pt receiving controlled substance: No Vital Signs: 08/31/23 09:23 08/31/23 09:26 08/31/23 09:30 Temperature 98.2 F Temperature Source Oral Pulse Rate 121 H 120 H Pulse Rate [Radial] 125 H Respiratory Rate 18 Blood Pressure 125/73 108/61 L Blood Pressure [Right Arm] 125/73 Blood Pressure Mean 81 84 Blood Pressure Mean [Right Arm] 90 Blood Pressure Source [Right Arm] Automatic Cuff Blood Pressure Position [Right Arm] Sitting 02 Sat by Pulse Oximetry 97 97 95 Oxygen Delivery Method Room Air Room Air Room Air 08/31/23 11:00 08/31/23 11:31 08/31/23 12:00 Temperature Temperature Source Pulse Rate 108 H 106 H 109 H Pulse Rate [Radial] Respiratory Rate 20 20 20 Blood Pressure 98/59 L 125/73 107/59 L Blood Pressure [Right Arm] Blood Pressure Mean 74 83 85 Blood Pressure Mean [Right Arm] Blood Pressure Source [Right Arm] Blood Pressure Position [Right Arm] 02 Sat by Pulse Oximetry 95 96 96 Oxygen Delivery Method 08/31/23 12:30 08/31/23 13:30 08/31/23 14:00 Temperature Temperature Source Pulse Rate 105 H 114 H 122 H Pulse Rate [Radial] Respiratory Rate 20 20 20 Blood Pressure 118/66 107/81 L 107/73 L Blood Pressure [Right Arm] Blood Pressure Mean 85 91 84 Blood Pressure Mean [Right Arm] Blood Pressure Source [Right Arm] Blood Pressure Position [Right Arm] 02 Sat by Pulse Oximetry 97 96 97 Oxygen Delivery Method 08/31/23 14:30 08/31/23 15:00 08/31/23 15:30 Temperature Temperature Source Pulse Rate 113 H 105 H 76 Pulse Rate [Radial] Respiratory Rate 20 18 16 Blood Pressure 99/65 L 118/64 111/68 Blood Pressure [Right Arm] Blood Pressure Mean 76 74 84 Blood Pressure Mean [Right Arm] Blood Pressure Source [Right Arm] Blood Pressure Position [Right Arm] 02 Sat by Pulse Oximetry 94 L 97 96 Oxygen Delivery Method Lab Data Lab Results 08/31/23 09:37: Urine Color Yellow, Urine Appearance Clear, Urine pH 6.0, Ur Specific Rupert 1.025, Urine Protein 1+, Urine Glucose (UA) Negative, Urine Ketones Trace, Urine Blood Negative, Urine Nitrate Negative, Urine Bilirubin 1+ A, Urine Urobilinogen 0.2, Ur Leukocyte Esterase Trace, Urine RBC None, Urine WBC Occasional, Ur Squamous Epith Cells Occasional, Urine Bacteria Trace 08/31/23 09:41: VBG pH 7.40, VBG pCO2 43.2, VBG pO2 21.4 L, VBG HCO3 25.9, VBG Total CO2 27.2 H, VBG O2 Saturation 37.7 L, VBG Base Excess 1.1, VBG Lactic Acid 2.1 H 08/31/23 09:44: WBC 8.0, RBC 4.89, Hgb 15.3, Hct 47.4 H, MCV 96.9, MCH 31.3 H, MCHC 32.3, RDW 14.2, Plt Count 273, MPV 7.9, Neut % (Auto) 85.2 H, Lymph % (Auto) 7.9 L, Fisher % (Auto) 5.2, Eos % (Auto) 0.6, Baso % (Auto) 1.1, Neut # (Auto) 6.8, Lymph # (Auto) 0.6 L, Fisher # (Auto) 0.4, Eos # (Auto) 0.1, Baso # (Auto) 0.1, Total Counted 100, Neutrophils % (Manual) 79 H, Lymphocytes % (Manual) 9 L, Atypical Lymphs % 8.0, Monocytes % (Manual) 4, Platelet Estimate Normal, RBC Morphology Normal, ESR 15, Sodium 134 L, Potassium 3.9, Chloride 97 L, Carbon Dioxide 30, Anion Gap 10.9, BUN 25 H, Creatinine 1.40 H, Estimated Creat Clear 60, Estimated GFR 38 L, Est GFR ( Amer) 46 L, Glucose 164 H, Calcium 9.8, Total Bilirubin 1.2, AST 38 H, ALT 49, Alkaline Phosphatase 85, Total Protein 7.0, Albumin 4.0, Globulin 3.0, Albumin/Globulin Ratio 1.3, Lipase 89, Acetone Level None detected 08/31/23 09:45: Troponin I < 0.01 08/31/23 14:45: Lactate 1.2 08/31/23 09:44 08/31/23 09:44 Orders (Tests/Meds): ED MEDICATIONS Generic Name Dose Route Start Last Admin Trade Name Freq PRN Reason Stop Dose Admin Sodium Chloride 10 ml 08/31/23 10:18 Sodium Chloride 0.9% 10ml Syr (Rad Only) IV 09/30/23 10:17 NEEDED PRN Maintain IV Site Discontinued Medications Generic Name Dose Route Start Last Admin Trade Name Freq PRN Reason Stop Dose Admin Lactated Ringer's 1,000 mls @ 999 mls/hr 08/31/23 09:32 08/31/23 09:38 Lactated Ringer's 1000 Ml Bag IV 08/31/23 10:32 999 mls/hr .Q1H1M ONE Administration Lactated Ringer's 1,000 mls @ 999 mls/hr 08/31/23 10:58 08/31/23 10:59 Lactated Ringer's 1000 Ml Bag IV 08/31/23 11:58 999 mls/hr .Q1H1M ONE Administration Lactated Ringer's 1,000 mls @ 999 mls/hr 08/31/23 14:15 08/31/23 14:25 Lactated Ringer's 1000 Ml Bag IV 08/31/23 15:15 999 mls/hr .Q1H1M ONE Administration Iopamidol 75 ml 08/31/23 10:18 08/31/23 10:19 Iopamidol-370 (76%);100ml Bottle IV 08/31/23 10:19 75 ml ONCE ONE Administration Morphine Sulfate 4 mg 08/31/23 13:23 08/31/23 13:30 Morphine 4mg/Ml Syringe IV 08/31/23 13:24 4 mg ONCE ONE Administration ORDERS Category Date Time Status CT abdomen pelvis w con Stat Cat Scan 08/31/23 09:[address] head/brain wo con Stat Cat Scan 08/31/23 15:28 Completed Acetone, Serum (Rapid) Stat Lab 08/31/23 09:44 Completed CBC w/Auto Diff [Complete Blood Count Auto Diff] Stat Lab 08/31/23 09:44 Completed CMP [Comprehensive Metabolic Panel] Stat Lab 08/31/23 09:44 Completed Diarrhea 23 Panel, PCR Stat Lab 08/31/23 15:46 Received Diarrhea 6-11 Panel, Cdiff PCR Stat Lab 08/31/23 15:46 Received ESR [Erythrocyte Sedimentation Rate] Stat Lab 08/31/23 09:44 Completed Lactic Acid Follow Up (RFLX 1) Stat Lab 08/31/23 14:45 Completed Lipase Stat Lab 08/31/23 09:44 Completed Trop I [Troponin I] Stat Lab 08/31/23 09:45 Completed Troponin I Q3H Lab 08/31/23 17:30 Ordered Troponin I Q3H Lab 08/31/23 20:30 Ordered UA [Urinalysis and Microscopic] Stat Lab 08/31/23 09:37 Completed VBG [Venous Blood Gas] Stat RT 08/31/23 09:41 Completed EKG Request [ECG Request] Stat Y 08/31/23 14:20 Ordered ECG Data Tracing #1: Independently interpreted by me, rate is 116, rhythm is regular, axis is rightward deviated, no ST elevation in anatomical contiguous leads, QTc 410. Tracing #2: Independently interpreted by me, rate is 105, rhythm is regular, axis is normal, no ST elevation in anatomical contiguous leads, QTc 363. Medical Decision Narrative: In summary patient is a 62-year-old female past medical history described above presents emergency department for evaluation of nonbloody diarrhea. Patient is hemodynamically stable nontoxic-appearing upon arrival, tachycardic, afebrile. Differential with regards to chronic aspect includes hepatobiliary pathology, pancreatic pathology, irritable bowel syndrome, new onset Crohn's, infectious causes, among others. With respect to the acute component in the setting of metformin I suspect that this is likely metformin side effect compounding her baseline problem. Workup will be conducted with hematologic labs, urinalysis, VBG, CT abdomen pelvis with IV contrast, EKG, stool sample. Initial interventions include crystalloid bolus. Workup reviewed by me, hematologic labs have no leukocytosis, compensated acid-base status, elevated creatinine compared to baseline for which additional crystalloid bolus will be administered. Urinalysis interpreted by me and not consistent with infection. Acetone negative. CT imaging consistent with colitis, uterine masses consistent with fibroids, diverticulosis without evidence of diverticulitis. Upon repeat evaluation patient had pain for which morphine will be administered. Patient was given another CT bolus given that she has resolving tachycardia however still mildly tachycardic. Family has concerns at bedside for atypical ACS as well as her bifrontal headache and history of previous CVA. Given this workup will be conducted with noncontrasted CT scan of the head although no concern for strokelike symptoms subarachnoid hemorrhage is a consideration however given mild bifrontal headache is unlikely. First troponin undetectably low. Given this no concern for ACS. CT head was ordered and pending at time of transition of care to the oncoming physician, Dr. Astorga. Patient may be appropriate for outpatient management if she has resolved tachycardia and pain however if either these fail she will need admission for volume resuscitation in the setting of colitis. <Miguelito Astorga MD - Last Filed: 08/31/23 16:43> Vital Signs: 08/31/23 09:23 08/31/23 09:26 08/31/23 09:30 Temperature 98.2 F Temperature Source Oral Pulse Rate 121 H 120 H Pulse Rate [Radial] 125 H Respiratory Rate 18 Blood Pressure 125/73 108/61 L Blood Pressure [Right Arm] 125/73 Blood Pressure Mean 81 84 Blood Pressure Mean [Right Arm] 90 Blood Pressure Source [Right Arm] Automatic Cuff Blood Pressure Position [Right Arm] Sitting 02 Sat by Pulse Oximetry 97 97 95 Oxygen Delivery Method Room Air Room Air Room Air 08/31/23 11:00 08/31/23 11:31 08/31/23 12:00 Temperature Temperature Source Pulse Rate 108 H 106 H 109 H Pulse Rate [Radial] Respiratory Rate 20 20 20 Blood Pressure 98/59 L 125/73 107/59 L Blood Pressure [Right Arm] Blood Pressure Mean 74 83 85 Blood Pressure Mean [Right Arm] Blood Pressure Source [Right Arm] Blood Pressure Position [Right Arm] 02 Sat by Pulse Oximetry 95 96 96 Oxygen Delivery Method 08/31/23 12:30 08/31/23 13:30 08/31/23 14:00 Temperature Temperature Source Pulse Rate 105 H 114 H 122 H Pulse Rate [Radial] Respiratory Rate 20 20 20 Blood Pressure 118/66 107/81 L 107/73 L Blood Pressure [Right Arm] Blood Pressure Mean 85 91 84 Blood Pressure Mean [Right Arm] Blood Pressure Source [Right Arm] Blood Pressure Position [Right Arm] 02 Sat by Pulse Oximetry 97 96 97 Oxygen Delivery Method 08/31/23 14:30 08/31/23 15:00 08/31/23 15:30 Temperature Temperature Source Pulse Rate 113 H 105 H 76 Pulse Rate [Radial] Respiratory Rate 20 18 16 Blood Pressure 99/65 L 118/64 111/68 Blood Pressure [Right Arm] Blood Pressure Mean 76 74 84 Blood Pressure Mean [Right Arm] Blood Pressure Source [Right Arm] Blood Pressure Position [Right Arm] 02 Sat by Pulse Oximetry 94 L 97 96 Oxygen Delivery Method Lab Data Lab Results 08/31/23 09:37: Urine Color Yellow, Urine Appearance Clear, Urine pH 6.0, Ur Specific Rupert 1.025, Urine Protein 1+, Urine Glucose (UA) Negative, Urine Ketones Trace, Urine Blood Negative, Urine Nitrate Negative, Urine Bilirubin 1+ A, Urine Urobilinogen 0.2, Ur Leukocyte Esterase Trace, Urine RBC None, Urine WBC Occasional, Ur Squamous Epith Cells Occasional, Urine Bacteria Trace 08/31/23 09:41: VBG pH 7.40, VBG pCO2 43.2, VBG pO2 21.4 L, VBG HCO3 25.9, VBG Total CO2 27.2 H, VBG O2 Saturation 37.7 L, VBG Base Excess 1.1, VBG Lactic Acid 2.1 H 08/31/23 09:44: WBC 8.0, RBC 4.89, Hgb 15.3, Hct 47.4 H, MCV 96.9, MCH 31.3 H, MCHC 32.3, RDW 14.2, Plt Count 273, MPV 7.9, Neut % (Auto) 85.2 H, Lymph % (Auto) 7.9 L, Fisher % (Auto) 5.2, Eos % (Auto) 0.6, Baso % (Auto) 1.1, Neut # (Auto) 6.8, Lymph # (Auto) 0.6 L, Fisher # (Auto) 0.4, Eos # (Auto) 0.1, Baso # (Auto) 0.1, Total Counted 100, Neutrophils % (Manual) 79 H, Lymphocytes % (Manual) 9 L, Atypical Lymphs % 8.0, Monocytes % (Manual) 4, Platelet Estimate Normal, RBC Morphology Normal, ESR 15, Sodium 134 L, Potassium 3.9, Chloride 97 L, Carbon Dioxide 30, Anion Gap 10.9, BUN 25 H, Creatinine 1.40 H, Estimated Creat Clear 60, Estimated GFR 38 L, Est GFR ( Amer) 46 L, Glucose 164 H, Calcium 9.8, Total Bilirubin 1.2, AST 38 H, ALT 49, Alkaline Phosphatase 85, Total Protein 7.0, Albumin 4.0, Globulin 3.0, Albumin/Globulin Ratio 1.3, Lipase 89, Acetone Level None detected 08/31/23 09:45: Troponin I < 0.01 08/31/23 14:45: Lactate 1.2 Orders (Tests/Meds): ED MEDICATIONS Generic Name Dose Route Start Last Admin Trade Name Freq PRN Reason Stop Dose Admin Sodium Chloride 10 ml 08/31/23 10:18 Sodium Chloride 0.9% 10ml Syr (Rad Only) IV 09/30/23 10:17 NEEDED PRN Maintain IV Site Discontinued Medications Generic Name Dose Route Start Last Admin Trade Name Freq PRN Reason Stop Dose Admin Lactated Ringer's 1,000 mls @ 999 mls/hr 08/31/23 09:32 08/31/23 09:38 Lactated Ringer's 1000 Ml Bag IV 08/31/23 10:32 999 mls/hr .Q1H1M ONE Administration Lactated Ringer's 1,000 mls @ 999 mls/hr 08/31/23 10:58 08/31/23 10:59 Lactated Ringer's 1000 Ml Bag IV 08/31/23 11:58 999 mls/hr .Q1H1M ONE Administration Lactated Ringer's 1,000 mls @ 999 mls/hr 08/31/23 14:15 08/31/23 14:25 Lactated Ringer's 1000 Ml Bag IV 08/31/23 15:15 999 mls/hr .Q1H1M ONE Administration Iopamidol 75 ml 08/31/23 10:18 08/31/23 10:19 Iopamidol-370 (76%);100ml Bottle IV 08/31/23 10:19 75 ml ONCE ONE Administration Morphine Sulfate 4 mg 08/31/23 13:23 08/31/23 13:30 Morphine 4mg/Ml Syringe IV 08/31/23 13:24 4 mg ONCE ONE Administration ORDERS Category Date Time Status CT abdomen pelvis w con Stat Cat Scan 08/31/23 09:[address] head/brain wo con Stat Cat Scan 08/31/23 15:28 Completed Acetone, Serum (Rapid) Stat Lab 08/31/23 09:44 Completed CBC w/Auto Diff [Complete Blood Count Auto Diff] Stat Lab 08/31/23 09:44 Completed CMP [Comprehensive Metabolic Panel] Stat Lab 08/31/23 09:44 Completed Diarrhea 23 Panel, PCR Stat Lab 08/31/23 15:46 Received Diarrhea 6-11 Panel, Cdiff PCR Stat Lab 08/31/23 15:46 Received ESR [Erythrocyte Sedimentation Rate] Stat Lab 08/31/23 09:44 Completed Lactic Acid Follow Up (RFLX 1) Stat Lab 08/31/23 14:45 Completed Lipase Stat Lab 08/31/23 09:44 Completed Trop I [Troponin I] Stat Lab 08/31/23 09:45 Completed Troponin I Q3H Lab 08/31/23 17:30 Ordered Troponin I Q3H Lab 08/31/23 20:30 Ordered UA [Urinalysis and Microscopic] Stat Lab 08/31/23 09:37 Completed VBG [Venous Blood Gas] Stat RT 08/31/23 09:41 Completed EKG Request [ECG Request] Stat Y 08/31/23 14:20 Ordered Medical Decision Narrative: In summary patient is a 62-year-old female past medical history described above presents emergency department for evaluation of nonbloody diarrhea. Patient is hemodynamically stable nontoxic-appearing upon arrival, tachycardic, afebrile. Differential with regards to chronic aspect includes hepatobiliary pathology, pancreatic pathology, irritable bowel syndrome, new onset Crohn's, infectious causes, among others. With respect to the acute component in the setting of metformin I suspect that this is likely metformin side effect compounding her baseline problem. Workup will be conducted with hematologic labs, urinalysis, VBG, CT abdomen pelvis with IV contrast, EKG, stool sample. Initial interventions include crystalloid bolus. Workup reviewed by me, hematologic labs have no leukocytosis, compensated acid-base status, elevated creatinine compared to baseline for which additional crystalloid bolus will be administered. Urinalysis interpreted by me and not consistent with infection. Acetone negative. CT imaging consistent with colitis, uterine masses consistent with fibroids, diverticulosis without evidence of diverticulitis. Upon repeat evaluation patient had pain for which morphine will be administered. Patient was given another CT bolus given that she has resolving tachycardia however still mildly tachycardic. Family has concerns at bedside for atypical ACS as well as her bifrontal headache and history of previous CVA. Given this workup will be conducted with noncontrasted CT scan of the head although no concern for strokelike symptoms subarachnoid hemorrhage is a consideration however given mild bifrontal headache is unlikely. First troponin undetectably low. Given this no concern for ACS. CT head was ordered and pending at time of transition of care to the oncoming physician, Dr. Astorga. Patient may be appropriate for outpatient management if she has resolved tachycardia and pain however if either these fail she will need admission for volume resuscitation in the setting of colitis. Gauri: I assumed primary responsibility for this patient after signout from previous physician. On my evaluation, patient's abdomen is soft, nontender, nondistended. Patient feeling much better after 3 L of fluid which was given by the previous MD. Patient states that she has had multiple diarrhea episodes here. Diarrhea panel was collected and sent. Labs concerning for dehydration and ZULMA. CT of the abdomen and pelvis independently interpreted and significant for colitis, no other concerns given patient's symptoms have improved significantly, conversation was had with her regarding home-going versus staying. After discussion of risks and benefits, patient and family voiced understanding of risk and benefits, opting for home-going, I feel this is appropriate and beneficial with patient. It was recommended that she start taking Imodium to help slow diarrhea, keep up with electrolyte rich fluids and probiotics. Close return precautions were discussed. Patient states that she has a follow-up on Sunday, 3 days from this visit and will return to the emergency department if she is having issues. I feel this is appropriate. Because patient at baseline without signs or symptoms of clinical decompensation, deemed appropriate for discharge. Results were relayed to patient who voiced understanding and were agreeable to outpatient management and follow up. I discussed my clinical impression with patient and answered all questions. At this time, the evidence for any other entities in the differential is insufficient to warrant any further testing or ED observation. This was explained as well. Advisory was given that persistent or worsening symptoms require further evaluation. I confirmed the understanding of this discussion. Critical Care <Michael Fish MD - Last Filed: 08/31/23 16:04> Critical Care Time Critical Care Time: No
[2023-08-31] MEDS: LACTATED RINGERS 1000ML 1,000 ML 999 ML IV ×3 (09:38→14:25)
--- NOTE | 2023-08-31 09:39 | ECG_ITS ---
APPROVED REPORT Exam: Resting ECG HR:116 bpm ECG Measurements Heart Rate 116 AXES ME 137 P 54 QRSd 94 QRS 109 QT 341 T 33 QTc 410 Conclusion SINUS TACHYCARDIA RIGHT AXIS DEVIATION [QRS AXIS > 100] ABNORMAL ECG Electronically signed by : REI FRITZ, 08/31/2023 11:41:38
--- NOTE | 2023-08-31 09:41 | PC.NURSE ---
urine sent to Lab. Pt aware we would like a stool sample for diarrhea panel. Respiratory notified of VBG order and blood being sent to Lab.
[2023-08-31 09:42] LABS: Microscopic, Urine URINE MICROSCOPIC (MICROSCOPIC)
[2023-08-31 09:43] LABS: Appearance,Urine CLEAR (Clear); Blood, Urine Negative (Negative); Color,Urine YELLOW (Yellow); Glucose,Urine (UA) Negative (Negative); Ketones,Urine TRACE (Negative); Leukocyte Esterase,Urine TRACE (Negative); Nitrate,Urine Negative (Negative); Protein,Urine 1+ (Negative); Specific Gravity, Urine 1.025 (1.005-1.030); Urobilinogen,Urine 0.2 EU/dl (0.2)
[2023-08-31 09:51] LABS: VBG Base Excess 1.1 mmol/L (-2.4-2.3); VBG HCO3 25.9 mmol/L (23-30); VBG Oxygen Saturation 37.7 % (50-70); VBG PCO2 43.2 mmol/L (35-51); VBG PO2 21.4 mmol/L (28-40); VBG Total CO2 27.2 mmol/L (23-27)
[2023-08-31 09:53] LABS: Lactate Venous 2.1 mmol/L (0.4-2.0)
[2023-08-31 09:54] LABS: Basophils # 0.1 K/mm3 (0-0.2); Basophils % 1.1 % (0.1-2.0); Eosinophils # 0.1 K/mm3 (0.0-0.4); Eosinophils % 0.6 % (0.1-12.0); Hematocrit 47.4 % (37.0-47.0); Hemoglobin 15.3 g/dL (12.2-16.2); Lymphocytes # 0.6 K/mm3 (0.7-4.5); Lymphocytes % 7.9 % (10-50); Mean Corpuscular HGB Conc 32.3 g/dL (31.8-35.4); Mean Corpuscular Hemoglobin 31.3 pg (27.0-31.2); Mean Corpuscular Volume 96.9 fl (81-99); Mean Platelet Volume 7.9 fl (7.4-10.4); Monocytes # 0.4 K/mm3 (0.1-1.0); Monocytes % 5.2 % (1.7-9.3); Neutrophils # 6.8 K/mm3 (1.8-7.8); Neutrophils % 85.2 % (37.0-80.0); Platelet Count 273 K/mm3 (142-424); Red Blood Count 4.89 M/mm3 (4.20-5.40); Red Cell Distribution Width 14.2 % (11.5-17.5)
[2023-08-31 09:55] LABS: Bacteria,Urine Trace /lpf; Squamous Epithelial Cell,Urine Occasional #/hpf (0-5); WBC,Urine Occasional #/hpf (0-3)
[2023-08-31 09:55] LABS: Chloride 97 mmol/L (98-107); Potassium 3.9 mmoL/L (3.5-5.1); Sodium 134 mmol/L (136-145)
[2023-08-31 09:56] LABS: MANUAL DIFFERENTIAL MANUAL DIFFERENTIAL (MANUAL DIFF)
[2023-08-31 09:57] LABS: Bilirubin,Urine 1+ (Negative)
[2023-08-31 09:58] LABS: Acetone, Serum (Rapid) None Detected (None Detect); Alanine Aminotransferase 49 U/L (12-78); Alkaline Phosphatase 85 U/L (38-126); Anion Gap 10.9 mEq/L (5-15); Aspartate Amino Transferase 38 U/L (14-36); Bilirubin,Total 1.2 mg/dl (0.2-1.3); Blood Urea Nitrogen 25 mg/dl (7-17); Calcium 9.8 mg/dl (8.4-10.2); Carbon Dioxide 30 mmol/L (22.0-30.0); Creatinine Clearance Estimated 60 mL/min (50-200); Estimated Glomerular Filt Rate 38 ml/min (>60); GFR (African American) 46 ML/MIN (>60); Glucose 164 mg/dl (74-100); Lipase 89 U/L (23-300)
[2023-08-31 09:59] LABS: Albumin/Globulin Ratio 1.3 (1.1-1.8)
[2023-08-31] MEDS: IOPAMIDOL-370 (76%);100ML BOTTLE 75 ML IV (10:19)
--- NOTE | 2023-08-31 10:58 | PC.NURSE ---
verbal order received for 2nd liter of LR
[2023-08-31 11:12] LABS: Lymphocytes % 9 % (10-50); Monocytes % 4 % (2-9); Neutrophils % 79 % (42-76); Platelet Estimate Normal; RBC Morphology Normal; Total Cells Counted 100
[2023-08-31 11:45] LABS: Erythrocyte Sedimentation Rate 15 mm/hr (0-30)
--- NOTE | 2023-08-31 13:20 | PC.NURSE ---
pt resting in bed. daughter at bedside. requesting pain meds. states she felt better after fluids but went to the bathroom and states she is having pain now. er md aware. call light within reach. bed in lowest position. reminded pt of need for diarrhea sample.
[2023-08-31] MEDS: MORPHINE 4MG/ML SYRINGE 4 MG IV (13:30)
[2023-08-31 13:54] LABS: Reflex Lactic Add Lactic Reflex
--- NOTE | 2023-08-31 14:55 | ECG_ITS ---
APPROVED REPORT Exam: Resting ECG HR:105 bpm ECG Measurements Heart Rate 105 AXES MA 141 P 60 QRSd 97 QRS 91 QT 302 T 15 QTc 363 Conclusion SINUS TACHYCARDIA BORDERLINE RIGHT AXIS DEVIATION Electronically signed by : ELIAN TYLER, 08/31/2023 19:26:15
--- NOTE | 2023-08-31 15:02 | PC.NURSE ---
Rounded on patient. No needs at this time. Will continue to monitor.
[2023-08-31 15:08] LABS: Lactic Acid Follow Up (RFLX 1) 1.2 mmol/L (0.7-2.1)
[2023-08-31 15:22] LABS: Troponin I < 0.01 ng/ml (0.00-0.034)
--- NOTE | 2023-08-31 15:28 | CT_ITS ---
FINAL REPORT CLINICAL HISTORY: bifrontal headache COMPARISON: 03/26/2023 FINDINGS: Axial images of the head were obtained without contrast. Coronal reformatted images were also obtained.This study was performed with techniques to keep radiation doses as low as reasonably achievable (ALARA). Individualized dose reduction techniques using automated exposure control or adjustment of mA and/or kV according to the patient's size were employed. There is motion on many of the images which decreases the sensitivity of the exam. There is no evidence of intracranial hemorrhage or mass. There is a persistent focal area of encephalomalacia in the inferior left occipital lobe. The ventricular size is within normal limits. There is no evidence of shift of the midline structures. No abnormal extra axial fluid collection is identified. No skull abnormality is seen on the bone window images. IMPRESSION: No acute intracranial abnormality. Persistent focus of encephalomalacia in the inferior left occipital lobe. Reviewed, Interpreted and Dictated by Jose Palomo III, MD Transcribed by Lisette Hernandez Authenticated and . [facility]
[2023-08-31 15:50] LABS: Adenovirus F 40/41, stool Not Detected (NotDetected); Astrovirus Not Detected (NotDetected); Clostridium Difficile A/B, PCR Not Detected (NotDetected); Cryptosporidium Not Detected (NotDetected); Cyclospora Cayetanesis Not Detected (NotDetected); Entamoeba histolytica Not Detected (NotDetected); Enteroaggregative E coli Not Detected (NotDetected); Enteropathogenic E coli Not Detected (NotDetected); Enterotoxigenic E coli Not Detected (NotDetected); Giardia lamblia Not Detected (NotDetected); Norovirus Not Detected (NotDetected); Plesimonas Shigalloides, PCR Not Detected (NotDetected); Rotavirus A Not Detected (NotDetected); Salmonella, PCR Not Detected (NotDetected); Sapovirus Not Detected (NotDetected); Shiga-like toxin E coli Not Detected (NotDetected); Shigella Enterovasive E coli Not Detected (NotDetected); Vibrio Cholerae Not Detected (NotDetected); Vibrio, PCR Not Detected (NotDetected); Yersinia Entercolitica, PCR Not Detected (NotDetected)
[2023-09-04 10:00] LABS: Campylobacter Detected (NotDetected)
--- NOTE | 2023-09-04 10:49 | PC.NURSE ---
diarrhea panel discussed with , NTD
--- NOTE | 2023-09-05 03:18 | PC.NURSE ---
follow up call requested, will notify dayshift charge to verify patient's diarrhea has resolved/isresolving.
--- NOTE | 2023-09-05 08:48 | PC.NURSE ---
pt states that she is feeling much better.
== END 2023-08-31 16:59 | disposition home or self-care (01) ==
PROVIDERS: Emergency Medicine; Emergency Provider Emergency Medicine; PCP Internal Medicine
DX: A04.5 Campylobacter enteritis (principal); R10.13 Epigastric pain; E87.1 Hypo-osmolality and hyponatremia; K52.9 Noninfective gastroenteritis and colitis, unspecified; R00.0 Tachycardia, unspecified; R51.9 Headache, unspecified; I11.9 Hypertensive heart disease without heart failure; I25.10 Atherosclerotic heart disease of native coronary artery without angina pectoris; E11.9 Type 2 diabetes mellitus without complications; Z79.84 Long term (current) use of oral hypoglycemic drugs
CPT/HCPCS: 36415; 70450; 74177; 80053; 81001; 82009; 82803; 83605; 83690; 84484; 85007; 85025; 85651; 87506; 87507; 93005; 96361; 96374; 99285; Q9967

== ENCOUNTER 2023-11-19 14:02 | Outpatient (CLI) | payer MEDICARE, SELFPAY ==
[2023-11-19 15:20] LABS: Anion Gap 12.6 mEq/L (5-15); Blood Urea Nitrogen 16 mg/dl (7-17); Calcium 10.1 mg/dl (8.4-10.2); Carbon Dioxide 33 mmol/L (22.0-30.0); Chloride 98 mmol/L (98-107); Estimated Glomerular Filt Rate 72 ml/min (>60); GFR (African American) 87 ML/MIN (>60); Glucose 95 mg/dl (74-100); Potassium 3.6 mmoL/L (3.5-5.1); Sodium 140 mmol/L (136-145)
[2023-11-19 15:36] LABS: Hemoglobin A1C 5.8 % (4.0-6.0)
== END 2023-11-19 23:59 | disposition home or self-care (01) ==
LOC: LAB.DROPOF 14:03
PROVIDERS: PCP Internal Medicine; Visit Provider Internal Medicine
DX: E11.59 Type 2 diabetes mellitus with other circulatory complications (principal); I10 Essential (primary) hypertension; R79.89 Other specified abnormal findings of blood chemistry; Z79.85 Long-term (current) use of injectable non-insulin antidiabetic drugs
CPT/HCPCS: 80048; 83036

== ENCOUNTER 2024-01-30 13:25 | Outpatient (CLI) | payer MEDICARE, SELFPAY ==
--- NOTE | 2024-01-30 13:30 | CT_ITS ---
FINAL REPORT TECHNIQUE: Multiple axial CT sections were performed from the foramen magnum to the vertex. Coronal reformatted images were also obtained. Precontrast and postcontrast injection images were obtained. This study was performed with technique to keep radiation doses as low as reasonably achievable, (ALARA). Individualized dose reduction techniques using automated exposure control or adjustment of mA and/or kV according to the patient size were employed. CLINICAL HISTORY: New onset vertigo, history occipital CVA COMPARISON: 08/31/2023 FINDINGS: The ventricles are normal in size. There is no evidence of hemorrhage. No masses are identified. There are small bilateral occipital areas of encephalomalacia, stable. No extra-axial fluid collection is seen. The sinuses are normal. No osseous abnormality is seen on the bone window images. Postcontrast images demonstrate no abnormal enhancement. IMPRESSION: Small bilateral occipital areas of encephalomalacia without acute intracranial abnormality. Reviewed, Interpreted and Dictated by Jose Palomo III, MD Transcribed by Tosha Argueta Authenticated and [facility]
[2024-01-30 14:13] LABS: Blood Urea Nitrogen 14 mg/dl (7-17); Estimated Glomerular Filt Rate 72 ml/min (>60); GFR (African American) 87 ML/MIN (>60)
[2024-01-30] MEDS: SODIUM CHLORIDE 0.9% 10ML SYR (RAD ONLY) 10 ML IV (14:31)
[2024-01-30] MEDS: IOPAMIDOL-300 (61%) 100ML VIAL 100 ML IV (14:31)
== END 2024-01-30 23:59 | disposition home or self-care (01) ==
LOC: RAD 13:27
PROVIDERS: PCP Internal Medicine; Visit Provider Internal Medicine
DX: R42 Dizziness and giddiness (principal); I69.30 Unspecified sequelae of cerebral infarction
CPT/HCPCS: 36415; 70470; 82565; 84520; Q9967

== ENCOUNTER 2024-02-18 15:53 | Outpatient (CLI) | payer MEDICARE, SELFPAY ==
[2024-02-18 15:43] LABS: Creatinine,Urine Random 155 mg/dL (Not Estab.)
[2024-02-18 15:47] LABS: Microalbumin/Creatinine Ratio 22.1
[2024-02-18 16:31] LABS: Alanine Aminotransferase 28 U/L (12-78); Albumin Level 4.3 g/dl (3.5-5.0); Albumin/Globulin Ratio 1.8 (1.1-1.8); Alkaline Phosphatase 69 U/L (38-126); Anion Gap 5.3 mEq/L (5-15); Aspartate Amino Transferase 30 U/L (14-36); Bilirubin,Total 0.9 mg/dl (0.2-1.3); Blood Urea Nitrogen 14 mg/dl (7-17); Calcium 9.7 mg/dl (8.4-10.2); Carbon Dioxide 34 mmol/L (22.0-30.0); Chloride 103 mmol/L (98-107); Chol/HDL Ratio 3.1 (1-3.5); Cholesterol 175 mg/dl (140-200); Estimated Glomerular Filt Rate 72 ml/min (>60); GFR (African American) 87 ML/MIN (>60); Globulin 2.4 g/dL (1.3-3.2); Glucose 75 mg/dl (74-100); HDL Cholesterol 56 mg/dl (40-60); Potassium 3.3 mmoL/L (3.5-5.1); Sodium 139 mmol/L (136-145); Total Protein,Serum 6.7 g/dl (6.3-8.2); Triglycerides 98 mg/dl (30-150); VLDL Cholesterol 20 mg/dL (0-40)
[2024-02-19 00:08] LABS: Hemoglobin A1C 6.2 % (4.0-6.0)
== END 2024-02-18 23:59 | disposition home or self-care (01) ==
LOC: LAB.DROPOF 15:53
PROVIDERS: PCP Internal Medicine; Visit Provider Internal Medicine
DX: I10 Essential (primary) hypertension (principal); I69.30 Unspecified sequelae of cerebral infarction; E78.5 Hyperlipidemia, unspecified; E11.59 Type 2 diabetes mellitus with other circulatory complications
CPT/HCPCS: 80053; 80061; 82043; 82570; 83036

== ENCOUNTER 2024-02-25 13:41 | Outpatient (CLI) | payer MEDICARE, SELFPAY ==
--- NOTE | 2024-02-25 13:41 | MM_ITS ---
PROCEDURE INFORMATION: Exam: MG Bilateral Screening 3D Mammography Exam date and time: 02/25/2024 1:39 PM Age: 63 years old Clinical indication: Screening examination TECHNIQUE: Imaging protocol: Bilateral Screening tomosynthesis and 2D mammography including computer-aided detection (CAD) when performed. COMPARISON: 1. MG MM DIG SCREENING MAMM BI W/CAD 01/03/2023 8:02 AM 2. MG MM DIG SCREENING MAMM BI W/CAD 09/15/2021 3:26 PM FINDINGS: MAMMOGRAPHY: Breast composition: There are scattered areas of fibroglandular density. Mass: Round 1.3 cm circumscribed mass in the left far medial posterior left breast seen on the craniocaudal projection only. This is believed to be obscured by the loop recorder device on the MLO but is believed to be in the lower-inner quadrant, approximate 7-10 o'clock axis, 14 cm from the nipple. Architectural distortion: None. Calcifications: No suspicious calcifications. Asymmetric density: None. Skin thickening: None. Axillary adenopathy: None. IMPRESSION: Patient to be recalled for left breast ultrasound for further evaluation of a left breast mass. ASSESSMENT: BI-RADS Category 0: Incomplete- Need Additional Imaging Evaluation.
== END 2024-02-25 23:59 | disposition home or self-care (01) ==
LOC: RAD 13:41
PROVIDERS: PCP Internal Medicine; Visit Provider Internal Medicine
DX: Z12.31 Encounter for screening mammogram for malignant neoplasm of breast (principal)
CPT/HCPCS: 77063; 77067

== ENCOUNTER 2024-03-24 09:29 | Outpatient (CLI) | payer MEDICARE, SELFPAY ==
--- NOTE | 2024-03-24 09:30 | US_ITS ---
PROCEDURE INFORMATION: Exam: US Left Breast Limited Exam date and time: 03/24/2024 9:34 AM Age: 63 years old Clinical indication: Recall on the basis of screening mammogram for further evaluation of round 1.3 cm circumscribed mass in the left far medial posterior left breast seen on the craniocaudal projection only. This is believed to be obscured by the loop recorder device on the MLO but is believed to be in the lower-inner quadrant, approximate 7-10 o'clock axis, 14 cm from the nipple. TECHNIQUE: Imaging protocol: Limited ultrasound of left breast with image documentation, including axilla when performed. Exam focused on the search and evaluation for mass. COMPARISON: MG MM DIG SCREENING MAMM BI W/CAD 02/25/2024 1:39 PM FINDINGS: ULTRASOUND: Breast ultrasound findings: Targeted left sonography demonstrates at 8 o'clock 11 cm from the nipple a probable complicated cluster of cysts, with avascular septations, which may reflect a postprocedure seroma as it adjacent to the loop recorder, measuring 1.2 x 1.3 x 0.7 cm, which corresponds to the mammographic mass and appears similar mammographically to 01/03/2023. IMPRESSION: Probably benign complicated cyst/seroma on the left at 8 o'clock adjacent to the mammographic mass, suggest six-month follow-up left sonography unless otherwise clinically indicated. ASSESSMENT: BI-RADS Category 3: Probably benign.
== END 2024-03-24 23:59 | disposition home or self-care (01) ==
LOC: RAD 09:30
PROVIDERS: PCP Internal Medicine; Visit Provider Internal Medicine
DX: R92.8 Other abnormal and inconclusive findings on diagnostic imaging of breast (principal)
CPT/HCPCS: 76642

== ENCOUNTER 2024-04-15 08:13 | Outpatient (CLI) | payer MEDICARE, SELFPAY ==
--- NOTE | 2024-04-15 08:14 | XR_ITS ---
FINAL REPORT TECHNIQUE: Bone densitometry calculations of the lumbar spine and left hip were obtained. CLINICAL HISTORY: Screening Dexa COMPARISON: None FINDINGS: Using L1-4, the bone mineral density of the spine is 1.217 g/cm2, corresponding to T-score of 1.5. Using the left hip, the bone mineral density of the femoral neck is 0.889 g/cm2, corresponding to a T-score of -0.4. NOTE: T-score: Standard deviation compared with peak bone mass of young adult mean. *Following the recommendations of the International Society of Bone densitometry, classification of hip BMD is based on the lower of two T-scores; total hip or femoral neck. IMPRESSION: Normal bone mineral density of the lumbar spine and left hip. Reviewed, Interpreted and Dictated by Johnathan Galvez MD Transcribed by Annemarie Santizo Authenticated and [facility]
--- NOTE | 2024-04-15 08:14 | US_ITS ---
PROCEDURE: US TRANSVAGINAL CLINICAL INDICATION: PMB COMPARISON: CT CT ABDOMEN PELVIS W CON from 08/31/2023 FINDINGS: Transvaginal sonographic images of the pelvis were obtained. UTERUS: 7.5 cm x 8.9cmx 4.7 cm retroverted with a combined endometrial thickness of 7.8mm. The endometrium itself is very thin but there is an area within the endometrium that measures 8.3 mm x 6.2 mm, possible polyp. There is an area in the anterior uterus that is square and hyperechoic in appearance. It measures 9.6 mm by 10.0 mm by 7.1 mm there is some posterior shadowing. On closer examination there appears to be a least 5 fibroids within the uterine cavity. They all appear to be intramural. Fibroid 1. 3.7 cm x 3.9 cm x 3.5 cm Fibroid 2. 4.1 cm x 3.4 cm x 3.5 cm Fibroid 3. 3.0 cm x 2.6 cm x 2.7 cm LEFT OVARY: 2.6 cmx1.6 cmx1.7cm with a volume of 3.7ml. RIGHT OVARY: 2.1cmx 1.3cmx1.2cm with a volume of 1.6ml. Both ovaries are seen and appear normal. Doppler flow to both ovaries are seen. There is no fluid in the cul-de-sac. IMPRESSION: 1. Retroverted uterus that is enlarged with multiple fibroids. The largest fibroid measures 4.1 cm. 2. The endometrium is thin but within the endometrium there is a thickened area that could represent a polyp. It is 8 mm in size. Cannot rule out an area of endometrial carcinoma or endometrial hyperplasia. The endometrium has fluid-filled areas as well. Recommend endometrial sampling. 3. There is a hyperechoic, square mass anterior to the uterus that has posterior shadowing. It measures 1 cm in size. 4. Both ovaries are seen and appear normal. Dictated by: Tejinder Low MD 04/15/2024 14:05 Tejinder Low MD in OV 04/15/2024 14:05
== END 2024-04-15 23:59 | disposition home or self-care (01) ==
LOC: RAD 08:14
PROVIDERS: PCP Internal Medicine; Visit Provider Obstetrics & Gynecology
DX: N95.0 Postmenopausal bleeding (principal); Z78.0 Asymptomatic menopausal state
CPT/HCPCS: 76830; 77080

== ENCOUNTER 2024-06-23 11:42 | Outpatient (CLI) | payer MEDICARE, SELFPAY ==
[2024-06-23 12:18] LABS: Basophils # 0.1 K/mm3 (0-0.2); Basophils % 0.8 % (0.1-2.0); Eosinophils # 0.1 K/mm3 (0.0-0.4); Eosinophils % 1.4 % (0.1-12.0); Hematocrit 44.1 % (37.0-47.0); Lymphocytes # 1.8 K/mm3 (0.7-4.5); Lymphocytes % 28.6 % (10-50); Mean Corpuscular Hemoglobin 30.7 pg (27.0-31.2); Mean Corpuscular Volume 90.2 fl (81-99); Mean Platelet Volume 9.9 fl (7.4-10.4); Monocytes # 0.6 K/mm3 (0.1-1.0); Monocytes % 9.9 % (1.7-9.3); Neutrophils # 3.8 K/mm3 (1.8-7.8); Neutrophils % 58.8 % (37.0-80.0); Platelet Count 283 K/mm3 (142-424); Red Blood Count 4.89 M/mm3 (4.20-5.40); Red Cell Distribution Width 13.3 % (11.5-17.5); White Blood Count 6.4 K/mm3 (4.8-10.8)
[2024-06-23 12:55] LABS: Chloride 98 mmol/L (98-107)
[2024-06-23 12:56] LABS: Albumin Level 4.3 g/dl (3.5-5.0); Potassium 3.3 mmoL/L (3.5-5.1); Sodium 138 mmol/L (136-145)
[2024-06-23 12:58] LABS: Blood Urea Nitrogen 14 mg/dl (7-17); Estimated Glomerular Filt Rate 72 ml/min (>60); GFR (African American) 87 ML/MIN (>60)
[2024-06-23 12:59] LABS: Alanine Aminotransferase 26 U/L (12-78); Alkaline Phosphatase 82 U/L (38-126); Anion Gap 14.3 mEq/L (5-15); Aspartate Amino Transferase 27 U/L (14-36); Bilirubin,Direct 0.1 mg/dl (0.0-0.4); Bilirubin,Indirect 0.7 mg/dL (0.0-0.9); Bilirubin,Total 0.8 mg/dl (0.2-1.3); Bilirubin,Unconjugated 0.6 mg/dL (0.0-1.1); Calcium 9.6 mg/dl (8.4-10.2); Carbon Dioxide 29 mmol/L (22.0-30.0); Cholesterol 149 mg/dl (140-200); Glucose 89 mg/dl (74-100); Magnesium 1.6 mg/dl (1.6-2.3); Total Protein,Serum 6.6 g/dl (6.3-8.2); Triglycerides 141 mg/dl (30-150); VLDL Cholesterol 28 mg/dL (0-40)
[2024-06-23 13:00] LABS: Chol/HDL Ratio 3.8 (1-3.5); HDL Cholesterol 39 mg/dl (40-60)
[2024-06-23 13:33] LABS: Thyroid Stimulating Hormone 2.44 uIU/mL (0.465-4.68)
[2024-06-23 13:47] LABS: Free T4 (Free Thyroxine) 0.97 ng/dl (0.78-2.19)
== END 2024-06-23 23:59 | disposition home or self-care (01) ==
LOC: LAB 11:43
PROVIDERS: PCP Internal Medicine; Visit Provider Physician Assistant
DX: I63.9 Cerebral infarction, unspecified (principal); H53.9 Unspecified visual disturbance; Q24.5 Malformation of coronary vessels; Z86.73 Personal history of transient ischemic attack (TIA), and cerebral infarction without residual deficits; E78.5 Hyperlipidemia, unspecified; I10 Essential (primary) hypertension
CPT/HCPCS: 36415; 80048; 80061; 80076; 83735; 84439; 84443; 85025

== ENCOUNTER 2024-07-11 11:20 | Outpatient (CLI) | payer MEDICARE, SELFPAY | END 2024-07-11 23:59 | disposition home or self-care (01) | LOC: PREOP 11:21 | PROVIDERS: PCP Internal Medicine; Visit Provider Obstetrics & Gynecology | DX: R69 Illness, unspecified (principal) ==

== ENCOUNTER 2024-07-15 07:37 | Day surgery (SDC) | payer MEDICARE, SELFPAY ==
[2024-07-11 11:46] VITALS: BMI 31.9
[2024-07-15] VITALS (20 sets, daily range): BP systolic 107–140; BP diastolic 57–73; PULSE 88–101; RESP 16–20; TEMP 36.3–43; O2SAT 94–99
--- NOTE | 2024-07-15 07:05 | EXP.ANES.CKL ---
[facility] Disclaimer: The information contained in this section may have been updated after the patient was seen, as this information can be updated by other users. 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 Bilateral homonymous visual field defect due to bilateral occipital strokes. No driving restrictions by deputy fire marshal recommendations. No evidence of PFO. event recorder in place, cannot exclude paroxysmal A-fib. 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 Elevated troponin Myocardial bridge Hx-TIA (transient ischemic attack) Obesity Bilateral knee pain Primary osteoarthritis of knees, bilateral Snoring History of CVA (cerebrovascular accident) without residual deficits HLD (hyperlipidemia) History of palpitations Hypertensive disorder Cerebrovascular accident Surgical History History of loop recorder Hx of breast biopsy Hx of cardiac cath Hx of tubal ligation Family History Brother Heart attack Father Cancer Colon Social History (Updated 07/11/24 @ 11:37 by Saqib Petty RN) Smoking Status: Former smoker alcohol intake: never substance use type: denies use current occupational status: retired Travel in the last 8 weeks: None household members: spouse housing: house caffeine: Yes Have you lived/traveled outside [place] in past 30 days?: No Contact w/someone who lives/traveled outside US past 30 days?: No Exposure to someone with infectious disease in past 14 days?: No Do you have a fever (greater than 100.4 F or 38 C)?: No Have you tested positive for COVID-19: Yes Exposed to someone with COVID-19 in past 14 days?: No Do you have a sore throat?: No Do you have a cough?: No Do you have any weakness?: No Are you experiencing any nausea/vomitting?: No Do you have any diarrhea?: No Are you experiencing any unusual bleeding?: No Do you have any muscle aches/pain?: No Do you have any abdominal pain?: No Are you experiencing loss of taste or smell?: No [facility] Anesthesia Checklist Patient Identification Patient Identification: Arm Band and Family Structural Data Admitted From: Home Planned Operative Procedure/s: LAVH,BSO, A-REPAIR. Cysto, Possible HOANG. Consent for Planned Operative Procedure(s) Verified: Yes Verified Documents: Surgical Consent and History and Physical NPO Status Verified Time NPO: 00:00 Additional verifications Patient : No Anesthesia Reactions: Yes Hx Blood Transfusions: Yes Blood Transfusion Reaction: No Cephalosporin Allergy: No Previous Colonoscopy: No
[2024-07-15 08:07] LABS: Microscopic, Urine URINE MICROSCOPIC (MICROSCOPIC)
[2024-07-15 08:20] LABS: Appearance,Urine CLEAR (Clear); Bilirubin,Urine Negative (Negative); Blood, Urine TRACE-I (Negative); Color,Urine YELLOW (Yellow); Glucose,Urine (UA) Negative (Negative); Ketones,Urine TRACE (Negative); Leukocyte Esterase,Urine 2+ (Negative); Nitrate,Urine Negative (Negative); Protein,Urine Negative (Negative); Urobilinogen,Urine 0.2 EU/dl (0.2)
[2024-07-15] MEDS: CELECOXIB 100MG CAPSULE 400 MG PO (08:20)
[2024-07-15] MEDS: ACETAMINOPHEN 500MG TAB 1000 MG PO (08:20)
[2024-07-15] MEDS: LACTATED RINGERS 1000ML 1,000 ML 25 ML IV (08:21)
[2024-07-15] MEDS: GABAPENTIN 300MG CAPSULE 600 MG (08:22)
[2024-07-15 08:28] LABS: POC Glucose,Bedside 112 (70-110)
--- NOTE | 2024-07-15 08:31 | EXP.ANES.CKL ---
[facility] Disclaimer: The information contained in this section may have been updated after the patient was seen, as this information can be updated by other users. 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 Bilateral homonymous visual field defect due to bilateral occipital strokes. No driving restrictions by head grease maker recommendations. No evidence of PFO. event recorder in place, cannot exclude paroxysmal A-fib. 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 Elevated troponin Myocardial bridge Hx-TIA (transient ischemic attack) Obesity Bilateral knee pain Primary osteoarthritis of knees, bilateral Snoring History of CVA (cerebrovascular accident) without residual deficits HLD (hyperlipidemia) History of palpitations Hypertensive disorder Cerebrovascular accident Surgical History History of loop recorder Hx of breast biopsy Hx of cardiac cath Hx of tubal ligation Family History Brother Heart attack Father Cancer Colon Social History Smoking Status: Former smoker alcohol intake: never substance use type: denies use current occupational status: retired Travel in the last 8 weeks: None household members: spouse housing: house caffeine: Yes [facility] Anesthesia Checklist Patient Identification Patient Identification: Arm Band and Family Structural Data Admitted From: Home Planned Operative Procedure/s: LAVH, BSO, A-REPAIR, CYSTO, POSS HOANG. Consent for Planned Operative Procedure(s) Verified: Yes Verified Documents: Surgical Consent and History and Physical NPO Status Verified Time NPO: 00:00 Additional verifications Patient : No Anesthesia Reactions: No Hx Blood Transfusions: No Blood Transfusion Reaction: No Cephalosporin Allergy: No Previous Colonoscopy: Yes Airway Assessment Mallampati Score:: Class I C-Spine Mobility Assessed: Yes TMJ Mobility Assessed: Yes Dentition: Good Dentition Neurological Assessment Level of Consciousness: Awake, Alert, Appropriate and Follows Commands Hx Seizures: No Numbness or tingling in extremities: No Anesthesia Plan Anesthesia Risk discussed: Yes ASA Class: III Anesthesia Type: General Preoperative Comments Pre-Operative Comments: cva . AMD tia, cad, DM on ezempic. increased weight. History of AL.
[2024-07-15 08:32] LABS: Bacteria,Urine 3+ /lpf; WBC,Urine 20-50 #/hpf (0-3)
[2024-07-15] MEDS: CEFAZOLIN SODIUM 2 GM in 0.9 % SODIUM CHLORIDE 100 ML IV (08:45)
[2024-07-15] MEDS: METRONIDAZ/SOD CHL 500 MG/100 ML PIGGYBACK 100 MG IV (09:00)
[2024-07-15] MEDS: WATER FOR IRRIGATION,STERILE 1,000 ML 25 ML IR (09:12)
[2024-07-15] MEDS: METHYLENE BLUE 0.5% 10ML AMPULE 50 MG IV (09:12)
[2024-07-15] MEDS: LIDOCAINE 1% W/EPI 1:100,000 20ML VIAL 20 ML ×2 (09:12→10:15)
[2024-07-15] MEDS: ROPIVACAINE 0.5% 30ML VIAL 300 MG (09:12)
--- NOTE | 2024-07-15 11:55 | P.PNANES_ITS ---
[facility] Anesthesia Record Part I Anesthesia Record I Intake, IV Amount: 1,500 Hydration: Adequate Estimated blood loss (mL): 200 Urine output (mL): 20 Blood Products used (#): none Blood Pressure: 121/63 SaO2: 95 Pulse Rate: 88 Airway Patency: Patent Respiratory Rate: 20 Temperature: 97.4 F Patient is:: Drowsy and Stable Stable to PACU at:: 11:42
[2024-07-15] MEDS: MORPHINE 2MG/ML SYRINGE 2 MG IV ×2 (12:10→12:20)
--- NOTE | 2024-07-15 12:55 | SUR.PHASEII ---
Called OB to ask for pain medication and d/c orders.
--- NOTE | 2024-07-15 13:10 | SUR.PHASEII ---
Sammie Mathias RN called to give verbal order for Oxy IR 10 mg once now per Dr. Max. She states she will put in d/c orders for this pt. after her meeting.
[2024-07-15] MEDS: OXYCODONE 5MG IMMEDIATE RELEASE TABLET 10 MG PO (13:12)
--- NOTE | 2024-07-15 14:39 | EXP.OP.NOTE ---
Date of procedure: 07/15/24 Pre-op Diagnosis:: 1. Postmenopausal bleeding 2. Fibroid uterus Post-op Diagnosis:: 1. Postmenopausal bleeding 2. Fibroid uterus Procedure performed:: 1. Laparoscopic assisted vaginal hysterectomy 2. Bilateral salpingo-oophorectomy 3. Marcos culdoplasty 4. Anterior colporrhaphy 5. Cystoscopy Surgeon:: Lucy Max DO Striping Machine Operator(s):: Tejinder Low MD CLINICAL LABORATORY SCIENTIST:: Zbigniew Harvey Anesthesia: GETA Estimated blood loss (mL): 200 Operative findings:: Uterine EUA was significant for 8wk size uterus with irregular borders at the fundus. Grade 3 uterine descent was appreciated. No gross adnexal masses were appreciated. Laparoscopic exam revealed normal anatomy.? There was noted to be a large fibroid uterus. No ovarian masses noted. No bowel injuries on entry. Cystoscopy revealed brisk flow from both ureters Operative note:: Pt was taken back to the OR where GETA was obtained without difficulty. SCDs were placed and found to be working. The patient was placed in dorsal lithotomy position using yellow fin stirrups. The vagina and abdomen was prepped and draped in the normal sterile fashion. An in and out catheter was used to drain the bladder and methylene blue was instilled. Weighted speculum was inserted into the vagina to visualize the cervix. A single tooth tenaculum was used to grasp the anterior lip of the cervix and an Anno uterine manipulator was placed. Top gloves were removed and attention was turned to the abdominal portion.? Local anesthetic with epinephrine was injected infraumbilically, an 11mm infraumbilical incision was made sharply. Direct entry into the abdominal cavity was obtained with laparoscopic visualization. A intraabdominal pressure of 6mmHg was observed and CO2 gas was insufflated to create a pneumoperitoneum to a pressure of 20mmHg. The patient was placed in Trendelenburg to facilitate moving the bowel out of the operative field. A second 11mm incision was made to the left, lateral to the rectus muscles with attention to avoid vasculature. Trocar introduced under direct visualization. This process was repeated on the right. Brief abdominal exam revealed normal anatomy as described above. The left fallopian tube was grasped at the fimbriated end. The ureters were visualized bilaterally and noted to be distal from the operative field. The LigaSure coagulation device was inserted and used to clamp, coagulate, and transect the left round ligament and broad ligament were serially clamped, fulgurated and transected, with attention given to stay proximal to the uterine body. The anterior and posterior leaflet of the broad ligament were and the anterior broad ligament dissection was carried out to complete a bladder flap to the midline. Attention turned to the right, ureter visualized peristalsing and noted to be distal from the operative field. The round ligament was grasped, coagulated and transected and the process listed above was repeated. The bladder flap was connected in the middle with careful dissection. The bladder flap bilaterally was created sharply with minimal use of electrocautery to avoid bladder injury. Secondary to large, pedunculated, space occupying fibroids visualization was difficult. Decision was made to complete the case vaginally and retrieve the ovaries at the end of the case. Attention was turned vaginally, a weighted speculum and Hina retractor were used to identify the cervix. Two Aguilera tenaculums were used to grasp the anterior and posterior lip of the cervix. 20mL of a solution made up of 0.5% Marcaine with epinephrine injected circumferentially around the cervix. Outward traction was applied to the cervix and a scalpel was used to make a circumferential colpotomy at the cervicovaginal junction. The incision was carried down to the paracervical fascia allowing the cervix to separate from the vaginal mucosa.? Pickups and Quach scissors were used to initiate and complete dissection into the posterior colpotomy. A long weighted Sherman speculum was placed in the posterior colpotomy. The uterosacral ligaments were grasped with Z clamps, cut and suture ligated bilaterally. These were tagged to be incorporated into the vaginal cuff at a later time. Attention was turned to the anterior edge. Pickups and Metzenbaum scissors were used to initiate and complete dissection into the anterior colpotomy. A Hina retractor was placed in the anterior colpotomy. A Ruth clamp was used to slide off the uterus, remaining proximal, clamp, cut and tied with 0 Vicryl the remaining attachments of the cardinal ligaments along with the lower branches of the uterine vessels were clamped, fulgurated, and transected bilaterally.? The uterus, fallopian tubes, and ovaries were noted to be free of any other adhesions and was removed. The pedicals were inspected bilaterally and there was a small amount of bleeding noted near the left uterosacral ligament. This was grasped with a Rita and suture ligated to be made hemostatic. A moist lap sponge was placed vaginally to retract the bowel. The posterior peritoneum was fixed to the posterior vaginal cuff with a running locking stitch for hemostasis. 0-PDS was used to place a Marcos stitch for the culdoplasty, incorporating the bilateral uterosacral ligaments. The anterior peritoneum was grasped with an Lorena clamp and pursestringed closed. The vaginal cuff was then closed with 0 Vicryl in a running locking fashion. Marcos culdoplasty was tied to suspend the apex of the vagina. Hemostasis was noted. Anterior colporrhaphy: A small incision was made through the suburethral vaginal epithelium and the epithelium was then dissected free from the underlying tissues. This was further developed so that the entire cystocele was visualized and all tissues were dissected free from the underlying cystocele. The anterior endopelvic fascia was then plicated with a series of 2-0 Vicryl plication sutures. Cystocele was reduced in its entirety. The vaginal incision was closed with 2-0 Vicryl mattress suture. Hemostasis was excellent. After changing gloves, the pneumoperitoneum was reestablished, laparoscope was placed and inspection of the cuff, hemostasis noted. Ligasure was used to clamp, coagulate, and transect the infundibulopelvic ligament. This dissection was carried through the mesosalpinx to remove the fallopian tube in its entirety. This process was repeated on the contralateral side. Bilateral ovaries and fallopian tubes were removed from the laparoscopic trocar, passed off the operative field, and sent to pathology for further evaluation. Irrigation of the surgical site and suction revealed a small amount of bleeding from the right adnexal pedicle. This was made hemostatic with clamps. The peritoneum was oozing and made hemostatic with the LigaSure. Hemostasis noted, images obtained. A prophylactic layer of Prabha surgical powder was placed over the operative field. Brief abdominal survey revealed a normal appearing liver and abdomen, except for previous described pelvic adhesions. Pedicals and cuff reinspected and noted to be hemostatic.? The abdominal incisions were closed with a deep single interrupted 0 Vicryl followed by a subcuticular 4-0 Monocryl and Dermabond was placed over the incision. The left lower quadrant incision was noted to have had a subcuticular artery that was bleeding and it was made hemostatic with the deep stitch. Attention was turned back vaginally to complete the Cystoscopy: The patient was removed from Trendelenburg. A 70degree cystoscope was inserted into the urethra. The bladder was distended with sterile water. The osman of the bladder were inspected and noted to be intact, free of any sutures, gross masses or abnormal vasculature. Air bubble was noted at the dome of the bladder. Ureteral flow was immediately noted bilaterally. Sponge, instrument and needle counts were correct x3, per nursing. Condition: stable Disposition: floor Specimens:: Uterine body, cervix, bilateral fallopian tubes and ovaries Complications:: None
--- NOTE | 2024-07-15 15:42 | SUR.PHASEII ---
1500: Pt walked hallway and voided 50ml of clear yellow urine.
--- NOTE | 2024-07-16 07:52 | P.PNANES_ITS ---
[facility] Anesthesia Record Part II Anesthesia Record Part II Discharge Time: 12:32 Destination: Surgical Day Care (OP Surgery) PACU nurse assessment reviewed?: Yes Patient Condition:: Good Anesthesia Complications:: None Swallowing reflex intact?: Yes Airway Patency: Patent Cyanosis?: No Blood Pressure: 109/58 SaO2: 96 Respiratory Rate: 16 Pulse Rate: 97 Temperature: 97.4 F Mental Status: Alert & Oriented Pain level:: 4 Nausea and/or vomitting:: None Intake, IV Amount: 0 Hydration: Adequate
[2024-07-16 07:53] VITALS: BP 109/58; PULSE 97; RESP 16; TEMP 36.3; O2SAT 96
== END 2024-07-15 15:15 | disposition home or self-care (01) ==
PROVIDERS: PCP Internal Medicine; Visit Provider Obstetrics & Gynecology
PROC: 0UT9FZZ Resection of Uterus, Via Natural or Artificial Opening With Percutaneous Endoscopic Assistance (ICD-10-PCS; CPT 57240; principal; 2024-07-15 09:00)
DX: N92.4 Excessive bleeding in the premenopausal period (principal); D25.1 Intramural leiomyoma of uterus; Z79.84 Long term (current) use of oral hypoglycemic drugs
CPT/HCPCS: 57240; 57268; 58552; 81001; 82962; 87086; 96374; J3490; J0690; J1100; J1885; J2250; J2270; J2405; J3010; J7120

== ENCOUNTER 2024-07-25 17:45 | Observation (INO) | payer MEDICARE, SELFPAY ==
[2024-07-25] VITALS (15 sets, daily range): BP systolic 124–148; BP diastolic 71–95; PULSE 75–95; RESP 16–20; TEMP 36.7–38; O2SAT 92–99; BMI 32.9
--- NOTE | 2024-07-25 16:39 | P.PNANES_ITS ---
[facility] Disclaimer: The information contained in this section may have been updated after the patient was seen, as this information can be updated by other users. 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 Bilateral homonymous visual field defect due to bilateral occipital strokes. No driving restrictions by program coordinator for residence life recommendations. No evidence of PFO. event recorder in place, cannot exclude paroxysmal A-fib. 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 Elevated troponin Myocardial bridge Hx-TIA (transient ischemic attack) Obesity Bilateral knee pain Primary osteoarthritis of knees, bilateral Snoring History of CVA (cerebrovascular accident) without residual deficits HLD (hyperlipidemia) History of palpitations Hypertensive disorder Cerebrovascular accident Surgical History History of loop recorder Hx of breast biopsy Hx of cardiac cath Hx of tubal ligation Family History Brother Heart attack Father Cancer Colon Social History Smoking Status: Former smoker alcohol intake: never substance use type: denies use current occupational status: retired Travel in the last 8 weeks: None household members: spouse housing: house caffeine: Yes [facility] Anesthesia Checklist Patient Identification Patient Identification: Arm Band Structural Data Admitted From: Other Planned Operative Procedure/s: Repair of Vaginal Cuff Consent for Planned Operative Procedure(s) Verified: Yes Verified Documents: Surgical Consent and History and Physical NPO Status Verified Time NPO: 11:00 Additional verifications Anesthesia Reactions: No Hx Blood Transfusions: No Blood Transfusion Reaction: No Airway Assessment Mallampati Score:: Class II C-Spine Mobility Assessed: Yes TMJ Mobility Assessed: Yes Dentition: Good Dentition Neurological Assessment Level of Consciousness: Awake, Alert and Appropriate Anesthesia Plan Anesthesia Risk discussed: Yes Anesthesia Plan: Verified ASA Class: III (E) Anesthesia Type: General
[2024-07-25 16:56] LABS: Basophils # 0.1 K/mm3 (0-0.2); Basophils % 0.9 % (0.1-2.0); Eosinophils # 0.1 K/mm3 (0.0-0.4); Eosinophils % 1.7 % (0.1-12.0); Hematocrit 40.5 % (37.0-47.0); Hemoglobin 13.7 g/dL (12.2-16.2); Lymphocytes # 2.6 K/mm3 (0.7-4.5); Mean Corpuscular HGB Conc 33.8 g/dL (31.8-35.4); Mean Corpuscular Hemoglobin 30.6 pg (27.0-31.2); Mean Corpuscular Volume 90.4 fl (81-99); Mean Platelet Volume 9.7 fl (7.4-10.4); Monocytes # 0.7 K/mm3 (0.1-1.0); Monocytes % 8.9 % (1.7-9.3); Neutrophils # 4.3 K/mm3 (1.8-7.8); Platelet Count 389 K/mm3 (142-424); Red Blood Count 4.48 M/mm3 (4.20-5.40); Red Cell Distribution Width 13.5 % (11.5-17.5); White Blood Count 7.8 K/mm3 (4.8-10.8)
[2024-07-25 17:03] LABS: Alanine Aminotransferase 31 U/L (12-78); Albumin Level 4.7 g/dl (3.5-5.0); Albumin/Globulin Ratio 1.7 (1.1-1.8); Alkaline Phosphatase 81 U/L (38-126); Anion Gap 7.6 mEq/L (5-15); Aspartate Amino Transferase 34 U/L (14-36); Bilirubin,Total 0.7 mg/dl (0.2-1.3); Blood Urea Nitrogen 16 mg/dl (7-17); Calcium 9.6 mg/dl (8.4-10.2); Carbon Dioxide 29 mmol/L (22.0-30.0); Chloride 105 mmol/L (98-107); Creatinine Clearance Estimated 75 mL/min (50-200); Estimated Glomerular Filt Rate 72 ml/min (>60); GFR (African American) 87 ML/MIN (>60); Globulin 2.8 g/dL (1.3-3.2); Glucose 91 mg/dl (74-100); Potassium 3.6 mmoL/L (3.5-5.1); Sodium 138 mmol/L (136-145); Total Protein,Serum 7.5 g/dl (6.3-8.2)
--- NOTE | 2024-07-25 17:40 | P.PNANES_ITS ---
[facility] Anesthesia Record Part I Anesthesia Record I Intake, IV Amount: 800 Hydration: Adequate Estimated blood loss (mL): 20 Urine output (mL): 0 Blood Products used (#): none Blood Pressure: 143/86 SaO2: 92 Pulse Rate: 88 Airway Patency: Patent Respiratory Rate: 16 Temperature: 98.2 F Patient is:: Drowsy and Stable Stable to PACU at:: 17:35
--- NOTE | 2024-07-25 17:43 | P.OP_ITS ---
Date of procedure: 07/25/24 Pre-op Diagnosis:: 1. Vaginal cuff bleeding 2. Concern for dehisence Post-op Diagnosis:: 1. Vaginal cuff bleeding Procedure performed:: Exam under anesthesia Surgeon:: Lucy Max DO Aviation Ordnance Officer(s):: Dr. Plasencia DYEHOUSE WORKER:: Jah Michelle Anesthesia: GETDana Estimated blood loss (mL): 25 Clinical Note:: Henny Contreras is a 63yo 10days Postop from an LAVH, BSO, anterior colporrhapy and cystoscopy and presented to clinic today for persistent vaginal bleeding. The patient is on 2 blood thinners: Eliquis and Plavix. She takes these secondary to a stroke and myocardial infarction in 2022. She restarted them on Sunday. She had significant vaginal bleeding from the vaginal cuff noted in the office. It was difficult to determine the source. Pt was counseled and we proceeded with exam under anesthesia for possible vaginal cuff repair. General surgery was consulted for inspection in case of evisceration. Operative findings:: Intact vaginal cuff and anterior repair. The cuff was probed and throughly inspected for 30+minutes. No defects noted. There was generalized oozing from the vaginal osman. Decision was made to proceed with CT with PO contrast for evaluation of the bowel. General surgery has low concern for bowel involvement. Operative note:: Henny was taken back to the operating room placed in dorsolithotomy position using yellowfin stirrups. SCDs were placed for thromboprophylaxis. The vagina was thoroughly prepped with Betadine. The bladder was emptied with a Flores ca theter. A weighted speculum was used to visualize the cuff. Asepto syringe was used to thoroughly irrigate the vagina to identify any bleeding and to thoroughly inspect the vaginal cuff. The cuff was probed at least 3 times with an Allis and DeBakey forceps. No defect was noted. No contents of bowel were appreciated. There were several small focal petechial hemorrhages noted. These were all along the vaginal wall and not at the cuff. 3 of them on the patient's right posterior lateral vaginal wall were bovied with a single touch of the Bovie. There was 1 area that was bleeding in the posterior lateral vaginal wall that was made hemostatic with a [id number] 2-0 Vicryl. At the completion of the case there was still a small amount of petechial hemorrhages noted. A Gelfoam was placed vaginally along the cuff. The patient will be admitted overnight. Once out of the PACU she will initiate the process of completing a CT scan with p.o. contrast for further evaluation of the bowel. We discussed the risk and benefits of running the bowel laparoscopically and given no bowel was noted on exam general surgery and I suspect that this is unnecessary. All instruments were removed from the vagina, Gelfoam was left in place, and the patient was awakened from general anesthesia. All counts were correct by nursing staff. Condition: stable Disposition: floor Specimens:: None Complications:: None
[2024-07-25 17:50] LABS: POC Glucose,Bedside 85 (70-110)
--- NOTE | 2024-07-25 17:53 | CT_ITS ---
PROCEDURE INFORMATION: Exam: CT Abdomen And Pelvis Without Contrast Exam date and time: 07/25/2024 8:41 PM Age: 63 years old Clinical indication: Other: Bleeding; Prior surgery; Surgery date: 3-7 days post-operative; Surgery type: Hysterectomy; Additional info: Rule out bowel complications TECHNIQUE: Imaging protocol: Computed tomography of the abdomen and pelvis without contrast. Radiation optimization: All CT scans at this facility use at least one of these dose optimization techniques: automated exposure control; mA and/or kV adjustment per patient size (includes targeted exams where dose is matched to clinical indication); or iterative reconstruction. Other contrast: Oral, GASTROGRAFIN , 30; COMPARISON: CT ABDOMEN PELVIS W CON 08/31/2023 10:18 AM FINDINGS: Lungs: The visualized lung bases demonstrate no focal infiltrates or pleural effusions. Liver: Normal. No mass. Gallbladder and biliary ducts: Normal. No calcified stones. No ductal dilation. Pancreas: Normal. No ductal dilation. Spleen: Normal. No splenomegaly. Adrenal glands: Normal. No mass. Kidneys and ureters: Normal. No hydronephrosis. Stomach and bowel: Unremarkable. No obstruction. No mucosal thickening. Appendix: No evidence of appendicitis. Intraperitoneal space: . No free air. . Vasculature: Unremarkable. No abdominal aortic aneurysm. Lymph nodes: Unremarkable. No enlarged lymph nodes. Urinary bladder: Unremarkable as visualized. Reproductive: Unremarkable as visualized. Bones/joints: Unremarkable. No acute fracture. Soft tissues: Focal mixed attenuation collection within the anterior upper pelvic wall consistent with small subacute hematoma measures 4.2 x 2.3 x 2.4 cm. Small probable subacute hematoma measures 2.5 cm. Other findings: Would recommend follow-up to document resolution to exclude underlying mass. IMPRESSION: 1. Focal mixed attenuation collection within the anterior upper pelvic wall consistent with small subacute hematoma measures 4.2 x 2.3 x 2.4 cm. 2. Small probable subacute hematoma measures 2.5 cm within the cul de sac region. 3. Would recommend follow-up to document resolution to exclude underlying mass.
--- NOTE | 2024-07-25 18:07 | PC.NURSE ---
arrived by stretcher from surgery
--- NOTE | 2024-07-25 18:25 | EXP.HP ---
History of Present Illness *Admission Date: 07/25/24 *Reason for visit:: Vaginal bleeding *History of present illness: Henny Contreras is a 63yo 10days Postop from an LAVH, BSO, anterior colporrhapy and cystoscopy and presented to clinic today for persistent vaginal bleeding. The patient is on 2 blood thinners: Eliquis and Plavix. She takes these secondary to a stroke and myocardial infarction in 2022. She restarted them on 07/18/2024. Patient states that she has had a slight amount of bleeding for her entire postoperative course but that on Sunday it picked up a little bit more than normal. She stated that she had a clot today in the send she called the office. As far as pain goes she denies a significant amount of pain, the only pain that she feels is in her rectum . She reports some pain with bowel movements but otherwise she denies any pain. She had significant vaginal bleeding from the vaginal cuff noted in the office. It was difficult to determine the source. Pt was counseled and we proceeded with exam under anesthesia for possible vaginal cuff repair. General surgery was consulted for inspection in case of evisceration. [facility] Disclaimer: The information contained in this section may have been updated after the patient was seen, as this information can be updated by other users. 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 Bilateral homonymous visual field defect due to bilateral occipital strokes. No driving restrictions by shot core drill operator recommendations. No evidence of PFO. event recorder in place, cannot exclude paroxysmal A-fib. 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 Elevated troponin Myocardial bridge Hx-TIA (transient ischemic attack) Obesity Bilateral knee pain Primary osteoarthritis of knees, bilateral Snoring History of CVA (cerebrovascular accident) without residual deficits HLD (hyperlipidemia) History of palpitations Hypertensive disorder Cerebrovascular accident Surgical History History of loop recorder Hx of breast biopsy Hx of cardiac cath Hx of tubal ligation Family History Brother Heart attack Father Cancer Colon Social History Smoking Status: Former smoker alcohol intake: never substance use type: denies use current occupational status: retired Travel in the last 8 weeks: None household members: spouse housing: house caffeine: Yes Other Medical History Have you received the Flu Vaccine for this season: No Have you received the Pneumonia Vaccine: No Review of Systems Review of Systems Review of systems (narrative): Review of Systems Constitutional: Denies fever, chills, and sweats Respiratory: Endorses a mild cough and some sneezing. States that she is coughed a couple times each day but not a persistent cough for. She is not a smoker. Cardiovascular: Denies chest pain and lightheadedness Gastrointestinal: Denies significant abdominal pain. Slight pain with defecation. Endorses vaginal bleeding. Denies any vaginal odor or discharge. Denies nausea, vomiting. Genitourinary: Denies dysuria and incontinence Neurological: Denies change in speech or headaches Meds Home Medications and Allergies Home Medications ?Medication ?Instructions ?Recorded ?Confirmed ?Type nitroglycerin 0.4 mg sublingual 0.4 mg sublingual NEEDED PRN cp 11/19/23 07/25/24 Rx tablet #20 tabs lorazepam 0.5 mg tablet 0.5 mg PO TID PRN anxiety #60 tabs 05/12/24 07/25/24 Rx estradiol 0.01% (0.1 mg/gram) 1 appful vaginal HS #42.5 grams 05/15/24 07/25/24 Rx vaginal cream (Estrace) semaglutide 2 mg/dose (8 mg/3 mL) See Rx Instructions .Route 06/02/24 07/25/24 Rx subcutaneous pen injector (Ozempic) .COMPLEX #3 mL losartan 25 mg tablet 25 mg PO DAILY PRN bp 06/23/24 07/25/24 History biotin 10,000 mcg capsule 10,000 mcg PO DAILY hair loss 07/11/24 07/25/24 History multivitamin 1 tab PO DAILY 07/11/24 07/25/24 History acetaminophen 500 mg tablet 500 mg PO Q6H PRN fever or pain 07/15/24 07/25/24 Rx #30 tabs apixaban 5 mg tablet (Eliquis) 5 mg PO DAILY 07/15/24 07/25/24 History atenolol 50 mg tablet 50 mg PO DAILY 07/15/24 07/25/24 History atorvastatin 40 mg tablet 40 mg PO DAILY 07/15/24 07/25/24 History clopidogrel 75 mg tablet 75 mg PO DAILY 07/15/24 07/25/24 History gabapentin 100 mg capsule 100 mg PO DAILY 07/15/24 07/25/24 History hydrochlorothiazide 12.5 mg tablet 12.5 mg PO DAILY 07/15/24 07/25/24 History ibuprofen 800 mg tablet 800 mg PO Q8H PRN pain #60 tabs 07/15/24 07/25/24 Rx sennosides 8.6 mg tablet (Senna 8.6 mg PO BIDP PRN Constipation 07/15/24 07/25/24 Rx Lax) #60 tabs simethicone 125 mg tablet 125 mg PO DAILY PRN abdominal 07/15/24 07/25/24 Rx distention #60 tabs New Prescriptions to Start Prescriptions: Allergies Allergy/AdvReac Type Severity Reaction Status Date / Time No Known Allergies Allergy Verified 07/25/24 16:19 Exam Data for Last 24 hours Vital signs and Labs for Last 24 Hours: Temp Pulse Resp BP Pulse Ox O2 Del Method 98.2 F 75 16 147/87 H 95 Room Air 07/25/24 18:05 07/25/24 18:05 07/25/24 18:05 07/25/24 18:05 07/25/24 18:05 07/25/24 18:05 Laboratory Results - last 24 hr 07/25/24 16:31: WBC 7.8, RBC 4.48, Hgb 13.7, Hct 40.5, MCV 90.4, MCH 30.6, MCHC 33.8, RDW 13.5, Plt Count 389, MPV 9.7, Neut % (Auto) 55.0, Lymph % (Auto) 33.0, [place] % (Auto) 8.9, Eos % (Auto) 1.7, Baso % (Auto) 0.9, Neut # (Auto) 4.3, Lymph # (Auto) 2.6, [place] # (Auto) 0.7, Eos # (Auto) 0.1, Baso # (Auto) 0.1, Sodium 138, Potassium 3.6, Chloride 105, Carbon Dioxide 29, Anion Gap 7.6, BUN 16, Creatinine 0.80, Estimated Creat Clear 75, Estimated GFR 72, Est GFR ( Amer) 87, Glucose 91, Calcium 9.6, Total Bilirubin 0.7, AST 34, ALT 31, Alkaline Phosphatase 81, Total Protein 7.5, Albumin 4.7, Globulin 2.8, Albumin/Globulin Ratio 1.7, Blood Type A Positive, Antibody Screen Negative 07/25/24 17:43: POC Glucose 85 I & O for Last 24 hours: Intake & Output 07/22/24 07/23/24 07/24/24 07/25/24 23:59 23:59 23:59 23:59 Intake Total 800 / 800 Balance 800 / 800 Weight 186 lb Constitutional Constitutional: no acute distress *Routine HEENT Exam Head: Present normocephalic Eye: Present EOMI and PERRL ENT: Present mucous membranes moist *Routine Neck Exam Neck: Present supple; Absent lymphadenopathy *Routine Respiratory Exam Respiratory: Present CTA bilaterally *Routine Cardiovascular Exam Cardiovascular: Present RRR *Routine Abdominal Exam Abdominal: Present soft and normoactive bowel sounds; Absent tenderness *Routine Rectal Exam Rectal:: deferred *Routine Genitalia Exam Genitalia:: normal female Comment:: See office note and op note *Routine Extremities Exam Extremities: Absent cyanosis, clubbing or edema *Routine Skin Exam Skin: Present warm; Absent rash *Routine Neurological Exam Neurological: Present alert and oriented X3 Assessment and Plan *Assessment and plan (1) Vaginal bleeding: Status: Acute Category: Medical Code(s): N93.9 - Abnormal uterine and vaginal bleeding, unspecified Plan Vaginal bleeding suspected from being on 2 different blood thinners. Vaginal cuff intact. General surgery recommended evaluation of the bowel with a CT abdomen/pelvis with p.o. contrast, ordered. CBC within normal limits: No leukocytosis, known history of fevers postoperatively, normal hemoglobin and platelets. CMP appropriate: creatinine appropriate and at baseline. LFTs appropriate Reversal for Plavix would be to give platelet Called and discussed the case with pharmacy who recommended discussion with the emergency department. Emergency department uses the reversal drug for Eliquis frequently. Discussed the use of Andexxa, drug is on hold for the patient. This is a reversal agent for Eliquis. Intraoperatively there was not enough bleeding that I suspected she required this medication. Gelfoam was placed at the vaginal cuff. She will be monitored overnight. If she remains stable and negative CT findings anticipate discharge home in the morning Diabetes -Glucose appropriately controlled postoperatively, per patient -Preop glucose: 85
--- NOTE | 2024-07-25 18:35 | HMH.ITSTN ---
Patient finished drinking gastrografin at 6:30 pm
[2024-07-25] MEDS: DIATRIZOATE MEG 66% & DIATRIZOATE NA 10% 30ML UDC 30 ML PO (18:39)
[2024-07-26 04:00] VITALS: BP 118/70; PULSE 93; RESP 16; TEMP 36.6; O2SAT 94; BMI 32.8
--- NOTE | 2024-07-26 04:35 | PC.NURSE ---
Pt is A/O X 4 and is able to ambulate to BR with standby assist. Pt voiding without difficulty. Only small amount of vaginal bleeding noted and continued to be reported. Daughter at bedside through the night. Pt down to x ray for scan early in the night. Pt and family asking when/if pt can eat. Director Of Informatics explained the need to wait for the results of the scan before eating in the case of another needed procedure. Call placed to Dr Duke who agreed for pt to eat now but to then remain NPO until morning. Explained plan to pt and family and all v/u. VS have been WNL
[2024-07-26 08:00] VITALS: BP 123/77; PULSE 93; RESP 16; TEMP 37.2; O2SAT 97
--- NOTE | 2024-07-26 09:27 | P.CONPHA_ITS ---
Pharmacy Intervention Comments: MEDICATION RECONCILIATION COMPLETED ON PATIENT USING EXTERNAL FILL HISTORY FROM PHARMACY, LIST FROM POLLUTION CONTROL CHEMIST AND CARDIOLOGY OFFICES, AND VIGNESH REPORT. -RAI OCONNOR, PHARMD
--- NOTE | 2024-07-26 09:27 | HMH.PHAINT1 ---
Pharmacy Intervention Comments: MEDICATION RECONCILIATION COMPLETED ON PATIENT USING EXTERNAL FILL HISTORY FROM PHARMACY, LIST FROM FIELD SCOUT AND CARDIOLOGY OFFICES, AND VIGNESH REPORT. -RAI OCONNOR, PHARMD
--- NOTE | 2024-07-26 11:28 | EXP.ANES.II ---
[facility] Anesthesia Record Part II Anesthesia Record Part II Discharge Time: 18:05 Destination: Medical Surgical Department PACU nurse assessment reviewed?: Yes Patient Condition:: Good Anesthesia Complications:: None Swallowing reflex intact?: Yes Airway Patency: Patent Cyanosis?: No Blood Pressure: 147/87 SaO2: 95 Respiratory Rate: 16 Pulse Rate: 75 Temperature: 98.2 F Mental Status: Alert & Oriented Pain level:: 0 Nausea and/or vomitting:: None Intake, IV Amount: 0 Hydration: Adequate
[2024-07-26 11:29] VITALS: BP 147/87; PULSE 75; RESP 16; TEMP 36.8; O2SAT 95
--- NOTE | 2024-07-26 11:43 | P.DS_ITS ---
General Admission date:: 07/25/24 Discharge date: 07/26/24 HPI HPI HPI: POD # 1 s/p exam under anesthesia secondary to vaginal cuff bleeding Henny is resting comfortably this morning. 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 She is feeling well. Denies pain. Voiding without difficulty and passing flatus. Tolerating regular diet. No complaints or concerns. Hospital Course Hospital Course Hospital Course: Henny Contreras is a 63yo 10days Postop from an LAVH, BSO, anterior colporrhapy and cystoscopy who presented to clinic today for persistent vaginal bleeding. The patient is on 2 blood thinners: Eliquis and Plavix. She takes these secondary to a stroke and myocardial infarction in 2022. She restarted them on 07/18/2024. Patient states that she has had a slight amount of bleeding for her entire postoperative course but that on Sunday it picked up a little bit more than normal. She stated that she had a clot today and then she called the office. As far as pain goes she denies a significant amount of pain, the only pain that she feels is in her rectum . She reports some pain with bowel movements but otherwise she denies any pain. She had significant vaginal bleeding from the vaginal cuff noted in the office. It was difficult to determine the source. Pt was counseled and we proceeded with exam under anesthesia for possible vaginal cuff repair. General surgery was consulted for inspection in case of evisceration. Operative findings demonstrated intact vaginal cuff and anterior repair. The cuff was probed and throughly inspected for 30+minutes. No defects noted. There was generalized oozing from the vaginal osman. Gel Foam was rolled and placed against vaginal cuff. Decision was made to proceed with CT with PO contrast for evaluation of the bowel. General surgery has low concern for bowel involvement. CT 07/26/24 demonstrated Focal mixed attenuation collection within the anterior upper pelvic wall consistent with small subacute hematoma measures 4.2 x 2.3 x 2.4 cm. 2. Small probable subacute hematoma measures 2.5 cm within the cul de sac region. 3. Would recommend follow-up to document resolution to exclude underlying mass. Plavix and Eliquis were held. She was instructed to hold both medications for 5 days. She did well overnight with light bleeding. Gel Foam was left in vagina. She was discharged home with instructions to follow-up with Dr. Max on 07/29/24. Exam Data for Last 24 hours Vital signs and Labs for Last 24 Hours: Temp Pulse Resp BP Pulse Ox O2 Del Method 99.0 F 93 H 16 123/77 97 Room Air 07/26/24 08:00 07/26/24 08:00 07/26/24 11:29 07/26/24 08:00 07/26/24 08:00 07/26/24 11:00 Laboratory Results - last 24 hr 07/25/24 16:31: WBC 7.8, RBC 4.48, Hgb 13.7, Hct 40.5, MCV 90.4, MCH 30.6, MCHC 33.8, RDW 13.5, Plt Count 389, MPV 9.7, Neut % (Auto) 55.0, Lymph % (Auto) 33.0, [place] % (Auto) 8.9, Eos % (Auto) 1.7, Baso % (Auto) 0.9, Neut # (Auto) 4.3, Lymph # (Auto) 2.6, [place] # (Auto) 0.7, Eos # (Auto) 0.1, Baso # (Auto) 0.1, Sodium 138, Potassium 3.6, Chloride 105, Carbon Dioxide 29, Anion Gap 7.6, BUN 16, Creatinine 0.80, Estimated Creat Clear 75, Estimated GFR 72, Est GFR ( Amer) 87, Glucose 91, Calcium 9.6, Total Bilirubin 0.7, AST 34, ALT 31, Alkaline Phosphatase 81, Total Protein 7.5, Albumin 4.7, Globulin 2.8, Albumin/Globulin Ratio 1.7, Blood Type A Positive, Antibody Screen Negative 07/25/24 17:43: POC Glucose 85 I & O for Last 24 hours: Intake & Output 07/23/24 07/24/24 07/25/24 07/26/24 23:59 23:59 23:59 23:59 Intake Total 800 / 1300 500 / 500 Output Total 0 / 0 Balance 800 / 1300 500 / 500 Weight 186 lb 184 lb 14.4 oz Constitutional Constitutional: no acute distress and cooperative *Routine HEENT Exam Head: Present normocephalic and atraumatic Eye: Absent conjunctivae pink ENT: Present mucous membranes moist *Routine Respiratory Exam Respiratory: Present CTA bilaterally and normal respiratory effort *Routine Cardiovascular Exam Cardiovascular: Present RRR *Routine Abdominal Exam Abdominal: Present soft and normoactive bowel sounds; Absent tenderness or distended *Routine Rectal Exam Patient deferred: visual exam *Routine Exam Patient deferred: external exam *Routine Extremities Exam Extremities: Present full ROM; Absent edema or calf tenderness Results Data Completed and Pending Labs on day of discharge: Labs from last 24 hours 07/25/24 07/25/24 17:43 16:31 WBC 7.8 RBC 4.48 Hgb 13.7 Hct 40.5 MCV 90.4 MCH 30.6 MCHC 33.8 RDW 13.5 Plt Count 389 MPV 9.7 Neut % (Auto) 55.0 Lymph % (Auto) 33.0 [place] % (Auto) 8.9 Eos % (Auto) 1.7 Baso % (Auto) 0.9 Neut # (Auto) 4.3 Lymph # (Auto) 2.6 [place] # (Auto) 0.7 Eos # (Auto) 0.1 Baso # (Auto) 0.1 Sodium 138 Potassium 3.6 Chloride 105 Carbon Dioxide 29 Anion Gap 7.6 BUN 16 Creatinine 0.80 Estimated Creat Clear 75 Estimated GFR 72 Est GFR ( Amer) 87 Glucose 91 POC Glucose 85 Calcium 9.6 Total Bilirubin 0.7 AST 34 ALT 31 Alkaline Phosphatase 81 Total Protein 7.5 Albumin 4.7 Globulin 2.8 Albumin/Globulin Ratio 1.7 Blood Type A Positive Antibody Screen Negative DS: Diagnosis Discharge Diagnosis (1) Vaginal bleeding: Status: Acute Code(s): N93.9 - Abnormal uterine and vaginal bleeding, unspecified (2) S/P laparoscopic assisted vaginal hysterectomy (LAVH): Status: Acute Code(s): Z90.710 - Acquired absence of both cervix and uterus Meds Home Medications and Allergies Home Medications ?Medication ?Instructions ?Recorded ?Confirmed ?Type estradiol 0.01% (0.1 mg/gram) 1 appful vaginal HS #42.5 grams 05/15/24 07/25/24 Rx vaginal cream (Estrace) losartan 25 mg tablet 25 mg PO DAILY 06/23/24 07/25/24 History biotin 10,000 mcg capsule 10,000 mcg PO DAILY 07/11/24 07/25/24 History multivitamin 1 tab PO DAILY 07/11/24 07/25/24 History apixaban 5 mg tablet (Eliquis) 5 mg PO BID 07/15/24 07/26/24 History atenolol 50 mg tablet 50 mg PO DAILY 07/15/24 07/25/24 History atorvastatin 40 mg tablet 80 mg PO DAILY 07/15/24 07/26/24 History clopidogrel 75 mg tablet 75 mg PO DAILY 07/15/24 07/25/24 History hydrochlorothiazide 12.5 mg tablet 12.5 mg PO DAILY 07/15/24 07/25/24 History sennosides 8.6 mg tablet (Senna 8.6 mg PO BIDP PRN Constipation 07/15/24 5 Rx Lax) #60 tabs acetaminophen 500 mg tablet 500 mg PO Q6HP PRN Mild Pain 07/26/24 07/26/24 History (Scale Score 1-4) ibuprofen 800 mg tablet 800 mg PO Q8HP PRN Mild Pain 07/26/24 07/26/24 History (Scale Score 1-4) lorazepam 0.5 mg tablet 0.5 mg PO TIDP PRN anxiety 07/26/24 07/26/24 History nitroglycerin 0.4 mg sublingual 0.4 mg sublingual Q5MINP PRN Chest 07/26/24 07/26/24 History tablet Pain semaglutide 2 mg/dose (8 mg/3 mL) 2 mg SQ WEEKLY 07/26/24 07/26/24 History subcutaneous pen injector (Ozempic) simethicone 125 mg tablet 125 mg PO DAILYP PRN abdominal 07/26/24 07/26/24 History distention New Prescriptions to Start Prescriptions: Allergies Allergy/AdvReac Type Severity Reaction Status Date / Time No Known Allergies Allergy Verified 07/25/24 16:19 Discharge Plan Disposition Patient Disposition: Home, Self-Care Condition: Good Follow up Plan Follow up with: Lucy Max DO [Staff Physician] - 07/29/24 (Keep appointment as scheduled) Prescriptions/Medication Reconciliation: Continued losartan 25 mg tablet 25 mg PO DAILY estradiol [Estrace] 0.01 % (0.1 mg/gram) cream 1 appful vaginal HS Qty: 42.5 2RF Rx Instructions: insert a blueberry sized amount vaginally at bedtime ibuprofen 800 mg tablet 800 mg PO Q8HP PRN (Reason: Mild Pain (Scale Score 1-4)) acetaminophen 500 mg tablet 500 mg PO Q6HP PRN (Reason: Mild Pain (Scale Score 1-4)) lorazepam 0.5 mg tablet 0.5 mg PO TIDP PRN (Reason: anxiety) nitroglycerin 0.4 mg tablet, sublingual 0.4 mg sublingual Q5MINP PRN (Reason: Chest Pain) simethicone 125 mg tablet 125 mg PO DAILYP PRN (Reason: abdominal distention) Ozempic 2 mg/dose (8 mg/3 mL) pen injector 2 mg SQ WEEKLY multivitamin Tablet 1 tab PO DAILY biotin 10,000 mcg Capsule 10,000 mcg PO DAILY atorvastatin 40 mg tablet 80 mg PO DAILY Rx Instructions: TAKE 2 TABLETS BY MOUTH ONCE DAILY FOR CHOLESTEROL atenolol 50 mg tablet 50 mg PO DAILY Rx Instructions: Take 1 tablet by mouth once daily hydrochlorothiazide 12.5 mg tablet 12.5 mg PO DAILY sennosides [Senna Lax] 8.6 mg Tablet 8.6 mg PO BIDP PRN (Reason: Constipation) Qty: 60 2RF Held clopidogrel 75 mg tablet 75 mg PO DAILY Hold Instructions: Resume on 07/31/24. Rx Instructions: Take 1 tablet by mouth once daily Eliquis 5 mg tablet 5 mg PO BID Hold Instructions: Resume on 07/31/24. Problem Reconciliation Problems Reviewed?: Yes Patient Discharge Instructions ACTIVITY: Limited activity DIET: continue same diet and regular diet Additional Instructions: Discharge: 1. Take 800 mg Ibuprofen every 8 hours as needed for pain. You can also take 1000 mg of Tylenol in between doses, every 6-8 hours Activity: - No lifting more than 10 lbs for 6 weeks. Please call the office or return to the ER if you have any of the followin. heavy vaginal bleeding 2. pain that does not respond to medication Questions or concerns: Print Language: Dominican Providers Primary Care Provider: Bernard Ordonez Admit Provider: Ирина Duke Attending Provider: Ирина Duke
[2024-07-26 18:09] LABS: Heparin Anti-Xa >1.52 IU/mL (.)
--- NOTE | 2024-07-28 10:56 | SW/DCPLANNER ---
Spoke with patient on the phone. Patient stated that she is doing very well. Patient stated that she is aware of her upcoming appointment. Patient stated she has no concerns or questions at this time. Jolene Felix
== END 2024-07-26 11:54 | disposition home or self-care (01) ==
LOC: 2ND 17:46
PROVIDERS: Obstetrics & Gynecology; Admitting Provider Obstetrics & Gynecology; PCP Internal Medicine; Visit Provider Obstetrics & Gynecology
PROC: (CPT 58999; principal; 2024-07-25 16:30)
DX: N99.821 Postprocedural hemorrhage of a genitourinary system organ or structure following other procedure (principal); Z90.710 Acquired absence of both cervix and uterus; N99.841 Postprocedural hematoma of a genitourinary system organ or structure following other procedure
CPT/HCPCS: 58999; 74177; 80053; 82962; 85025; 85520; 86850; J3490; G0378; J1100; J2250; J2405; J3010; Q9963

== ENCOUNTER 2024-07-29 14:38 | Outpatient (CLI) | payer MEDICARE, SELFPAY ==
[2024-07-29 15:22] LABS: Basophils # 0.1 K/mm3 (0-0.2); Basophils % 0.9 % (0.1-2.0); Eosinophils # 0.1 K/mm3 (0.0-0.4); Eosinophils % 0.9 % (0.1-12.0); Hematocrit 41.9 % (37.0-47.0); Hemoglobin 13.9 g/dL (12.2-16.2); Lymphocytes # 2.2 K/mm3 (0.7-4.5); Lymphocytes % 24.8 % (10-50); Mean Corpuscular HGB Conc 33.2 g/dL (31.8-35.4); Mean Corpuscular Hemoglobin 30.4 pg (27.0-31.2); Mean Corpuscular Volume 91.7 fl (81-99); Mean Platelet Volume 9.5 fl (7.4-10.4); Monocytes # 0.8 K/mm3 (0.1-1.0); Monocytes % 8.5 % (1.7-9.3); Neutrophils # 5.8 K/mm3 (1.8-7.8); Neutrophils % 64.5 % (37.0-80.0); Platelet Count 407 K/mm3 (142-424); Red Blood Count 4.57 M/mm3 (4.20-5.40); Red Cell Distribution Width 13.4 % (11.5-17.5)
[2024-07-29 15:44] LABS: Chloride 99 mmol/L (98-107)
[2024-07-29 15:45] LABS: Albumin Level 4.6 g/dl (3.5-5.0); Potassium 3.8 mmoL/L (3.5-5.1); Sodium 138 mmol/L (136-145)
[2024-07-29 15:47] LABS: Anion Gap 12.8 mEq/L (5-15); Blood Urea Nitrogen 15 mg/dl (7-17); Carbon Dioxide 30 mmol/L (22.0-30.0); Estimated Glomerular Filt Rate 56 ml/min (>60); GFR (African American) 67 ML/MIN (>60)
[2024-07-29 15:48] LABS: Alanine Aminotransferase 23 U/L (12-78); Albumin/Globulin Ratio 2.1 (1.1-1.8); Alkaline Phosphatase 87 U/L (38-126); Aspartate Amino Transferase 27 U/L (14-36); Bilirubin,Total 0.6 mg/dl (0.2-1.3); Calcium 10.1 mg/dl (8.4-10.2); Globulin 2.2 g/dL (1.3-3.2); Glucose 91 mg/dl (74-100); Magnesium 1.6 mg/dl (1.6-2.3); Total Protein,Serum 6.8 g/dl (6.3-8.2)
== END 2024-07-29 23:59 | disposition home or self-care (01) ==
LOC: LAB 14:38
PROVIDERS: PCP Internal Medicine; Visit Provider Obstetrics & Gynecology
DX: R42 Dizziness and giddiness (principal); N39.8 Other specified disorders of urinary system; I10 Essential (primary) hypertension
CPT/HCPCS: 36415; 80053; 83735; 85025

== ENCOUNTER 2024-08-11 13:20 | Outpatient (CLI) | payer MEDICARE, SELFPAY ==
[2024-08-11 17:53] LABS: Basophils # 0.1 K/mm3 (0-0.2); Basophils % 0.9 % (0.1-2.0); Eosinophils # 0.1 K/mm3 (0.0-0.4); Eosinophils % 1.3 % (0.1-12.0); Hematocrit 43.4 % (37.0-47.0); Hemoglobin 14.1 g/dL (12.2-16.2); Lymphocytes # 1.6 K/mm3 (0.7-4.5); Lymphocytes % 25.5 % (10-50); Mean Corpuscular HGB Conc 32.5 g/dL (31.8-35.4); Mean Corpuscular Hemoglobin 30.1 pg (27.0-31.2); Mean Corpuscular Volume 92.5 fl (81-99); Mean Platelet Volume 10.1 fl (7.4-10.4); Monocytes # 0.6 K/mm3 (0.1-1.0); Monocytes % 9.2 % (1.7-9.3); Neutrophils % 62.8 % (37.0-80.0); Platelet Count 334 K/mm3 (142-424); Red Blood Count 4.69 M/mm3 (4.20-5.40); Red Cell Distribution Width 13.4 % (11.5-17.5); White Blood Count 6.4 K/mm3 (4.8-10.8)
[2024-08-11 18:26] LABS: Hemoglobin A1C 5.4 % (4.0-6.0)
[2024-08-11 18:30] LABS: Albumin Level 4.8 g/dl (3.5-5.0); Chloride 99 mmol/L (98-107)
[2024-08-11 18:31] LABS: Sodium 137 mmol/L (136-145)
[2024-08-11 18:33] LABS: Alanine Aminotransferase 32 U/L (12-78); Albumin/Globulin Ratio 2.3 (1.1-1.8); Alkaline Phosphatase 95 U/L (38-126); Aspartate Amino Transferase 35 U/L (14-36); Bilirubin,Total 0.7 mg/dl (0.2-1.3); Blood Urea Nitrogen 13 mg/dl (7-17); Carbon Dioxide 29 mmol/L (22.0-30.0); Estimated Glomerular Filt Rate 72 ml/min (>60); GFR (African American) 87 ML/MIN (>60); Globulin 2.1 g/dL (1.3-3.2); Total Protein,Serum 6.9 g/dl (6.3-8.2)
[2024-08-11 18:34] LABS: Calcium 9.8 mg/dl (8.4-10.2); Chol/HDL Ratio 3.8 (1-3.5); Cholesterol 177 mg/dl (140-200); Glucose 71 mg/dl (74-100); HDL Cholesterol 47 mg/dl (40-60); Triglycerides 135 mg/dl (30-150); VLDL Cholesterol 27 mg/dL (0-40)
[2024-08-11 18:46] LABS: Direct LDL Cholesterol 87.28 mg/dL (100-129)
== END 2024-08-11 23:59 | disposition home or self-care (01) ==
LOC: LAB.DROPOF 08-12 15:01
PROVIDERS: PCP Internal Medicine; Visit Provider Internal Medicine
DX: E78.5 Hyperlipidemia, unspecified (principal); I10 Essential (primary) hypertension; Z87.891 Personal history of nicotine dependence; E11.59 Type 2 diabetes mellitus with other circulatory complications; Z79.85 Long-term (current) use of injectable non-insulin antidiabetic drugs
CPT/HCPCS: 80053; 80061; 83036; 85025

== ENCOUNTER 2024-08-27 12:42 | Outpatient (CLI) | payer MEDICARE, SELFPAY ==
--- NOTE | 2024-08-27 12:43 | XR_ITS ---
FINAL REPORT CLINICAL HISTORY: knee pain COMPARISON: 01/05/2023 FINDINGS: Three views of the right knee were obtained. There is no acute fracture or dislocation. There is severe tricompartmental degenerative change. Findings mildly worse compared to the prior study. There is no joint effusion. There is no soft tissue abnormality. IMPRESSION: Worsening degenerative changes. Reviewed, Interpreted and Dictated by Bib Raymond MD Transcribed by Kinga Doss Authenticated and [facility]
--- NOTE | 2024-08-27 12:43 | XR_ITS ---
FINAL REPORT CLINICAL HISTORY: knee pain COMPARISON: 01/05/2023 FINDINGS: LEFT KNEE 3 views of the left knee were obtained. There is no acute fracture or dislocation. There is severe tricompartmental degenerative change. Findings are mildly worse since the prior exam. There is no joint effusion. Soft tissues are unremarkable. IMPRESSION: Advanced degenerative changes, worse compared to prior. Reviewed, Interpreted and Dictated by Bib Raymond MD Transcribed by Kinga Doss Authenticated and [facility]
--- NOTE | 2024-08-27 12:43 | CT_ITS ---
FINAL REPORT TECHNIQUE: Axial CT of the abdomen and pelvis, without and with IV contrast. This study was performed with techniques to keep radiation doses as low as reasonably achievable, (ALARA). Individualized dose reduction techniques using automated exposure control or adjustment of mA and/or kV according to the patient's size were employed. CLINICAL HISTORY: s/p laparosscopid assisted vagival hysterctomy 6 weeks ago COMPARISON: 07/25/2024 FINDINGS: CT ABDOMEN PELVIS WITH AND WITHOUT CONTRAST: Abdomen: Lung bases are clear. Liver has an unremarkable CT appearance. The spleen, pancreas and adrenal glands are unremarkable. Precontrast imaging shows no renal stone disease. Postcontrast imaging of the kidneys shows no mass or obstruction. No bowel obstruction or fluid collection is seen. Pelvis: The appendix is normal in appearance. There is moderate sigmoid diverticulosis present without acute inflammatory change. There is a decrease in size of the anterior abdominal fluid collection just deep to the rectus muscles. The fluid collection measures 23 x 15 mm, previously measured 42 x 27 mm. There is trace fluid in the pelvic cul-de-sac, measuring 18 x 9 mm, was previously 36 x 17 mm. IMPRESSION: Improving fluid collections in the pelvic cul-de-sac and anterior extraperitoneal pelvis. No mass or acute findings. Reviewed, Interpreted and Dictated by Bib Raymond MD Transcribed by Annemarie Santizo Authenticated and [facility]
[2024-08-27] MEDS: SODIUM CHLORIDE 0.9% 10ML SYR (RAD ONLY) 10 ML IV (13:14)
[2024-08-27] MEDS: IOPAMIDOL-370 (76%);100ML BOTTLE 75 ML IV (13:14)
== END 2024-08-27 23:59 | disposition home or self-care (01) ==
LOC: RAD 12:43
PROVIDERS: PCP Internal Medicine; Visit Provider Obstetrics & Gynecology
DX: M25.561 Pain in right knee (principal); M25.562 Pain in left knee; G89.29 Other chronic pain; G89.18 Other acute postprocedural pain; Z90.710 Acquired absence of both cervix and uterus
CPT/HCPCS: 73562; 74178; Q9967

== ENCOUNTER 2024-11-18 07:46 | Outpatient (CLI) | payer MEDICARE, SELFPAY ==
--- OUTSIDE RECORDS SUMMARY | 2024-11-18 07:48 | XMS_ITS | Clinical Summary ---
Author Organization [facility] Address [address] [place] [address] Care Team Providers Care Paving Contractor Name Role Phone Bernard Ordonez MD Primary Care Provider [phone] Allergies No known active allergies Medications atenolol (Tenormin) 50 MG tablet Take 1 tablet (50 mg) by mouth 1 (one) time each day. Active atorvastatin (Lipitor) 40 MG tablet 03/19/2017 Active clopidogrel (Plavix) 75 MG tablet Take 1 tablet (75 mg) by mouth 1 (one) time each day. 02/24/2023 Active gabapentin (Neurontin) 100 MG capsule TAKE 1 CAPSULE BY MOUTH IN THE EVENING FOR LEG CRAMPS 01/12/2023 Active hydroCHLOROthia zide (HYDRODiuril) 12.5 MG tablet Take 1 tablet (12.5 mg) by mouth 1 (one) time each day. 02/25/2023 Active losartan (Cozaar) 100 MG tablet Take 1 tablet (100 mg) by mouth 1 (one) time each day. 02/28/2023 Active Eliquis 5 MG tablet Take 1 tablet (5 mg) by mouth 2 (two) times a day. 06/07/2023 Active naproxen (Naprosyn) 250 MG tablet 1 tablet (250 mg). 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 12/13/2023 Elevated troponin 12/13/2023 Emotional instability 12/13/2023 Encephalomalacia with cerebral infarction 2023 Hidradenitis suppurativa 12/13/2023 HLD (hyperlipidemia) 12/13/2023 Hypertensive disorder 12/13/2023 Lichen sclerosus of female genitalia 12/13/2023 Obesity 12/13/2023 JOSAFAT (obstructive sleep apnea) 12/13/2023 Post-menopausal bleeding 12/13/2023 Primary osteoarthritis of knees, bilateral 12/12 Snoring 12/13/2023 Somnolence, daytime 12/13/2023 Stress incontinence of urine 12/13/2023 Visual disturbances 12/13/2023 Visual field defect of left eye 12/13/2023 Vulvar edema 12/13/2023 Vulvar pain 12/13/2023 Stroke 06/19/2023 Status post placement of implantable loop record er 06/19/2023 Overview (06/19/2023): [employer] Serial Number: [id number] Model: [id number] followed and implanted by Zafar Will ASD (atrial septal defect) 06/19/2023 Family History Medical History Relation Name Comments Heart attack Brother Colon cancer Father Heart attack Other Relation Name Status Comments Brother Father Other Social History Tobacco Use Types Packs/Day Years Used Date Smoking Tobacco: Former Smokeless Tobacco: Never Alcohol Use Standard Drinks/Week Comments Never 0 (1 standard drink = 0.6 oz pur e alcohol) PHQ-2 Answer Date Recorded Patient Health Questionnaire-2 Score 0 06/22/2023 Comments Unknown Sex and Gender Information Value Date Recorded Sex Assigned at Not on file Legal Sex Female 6:01 PM EDT Gender Identity Not on file Sexual Orientation Not on file Last Filed Vital Signs Vital Sign Reading Time Taken Comments Blood Pressure 132/67 07/09/2023 5:00 PM EST Pulse 63 07/09/2023 5:00 PM EST Temperature 36.6 C (97.8 F) 07/09/2023 2:55 PM EST Respiratory Rate 17 07/09/2023 5:00 PM EST Oxygen Saturation 97% 07/09/2023 5:00 PM EST Inhaled Oxygen Concentration - - Weight 97.8 kg (215 lb 9.8 oz) 07/09/2023 11:29 AM EST Height 162.6 cm (5' 4 ) 07/09/2023 11:29 AM EST Body Mass Index 37.01 07/09/2023 11:29 AM EST Plan of Treatment Health Maintenance Due Date Last Done Comments [facility]-Bone Density Scan 1958 [facility]-Hepatitis C Screening 1960 [facility]-Infant/Child/Adol SDOH Screenings 1960 [facility]- SDOH Screenings 1976 [facility]-Adult SDOH Screenings 1976 [facility]-DTaP,Tdap,and Td Vaccine s (1 - Tdap) 1977 CT Colonography 10/11/2003 Colonoscopy 10/11/2003 FIT-DNA 10/11/2003 FIT 10/11/2003 FOBT 10/11/2003 Sigmoidoscopy 10/11/2003 [facility]-Colorectal Cancer Screening 10/11/2003 [facility]-Breast Cancer Screening 2008 [facility]-Pneumococcal Vaccine: 50 + Years (1 of 1 - PCV) 2008 [facility]-Zoster Vaccines (1 of 2) 2008 [id number] Vaccine (1 - 2023- season) 2024 [facility]-Depression Screening 06/22/2024 06/22/2023 [facility]-Influenza Vaccine (Seas[place] n Ended) 2025 [facility]-RSV Vaccine: 60+ Years o r (1 - 1-dose 75+ series) 2033 [facility]-Obesity Intervention Completed 024, 06/22/2023 HPV Vaccines Aged Out No longer eligi ble based on patient's age to complete this topic [facility]-HIB Vaccines Aged Out No longer e ligible based on patient's age to complete this topic [facility]-Hepatitis A Vaccines Aged Out No longer eligible based on patient's age to complete this topic [facility]-IPV Vaccines Aged Out No longer e ligible based on patient's age to complete this topic [facility]-Rotavirus Vaccines Aged Out No lo nger eligible based on patient's age to complete this topic Advance Directives * Full Code (Latest Code Status on File) Date Activated Date Inactivated Comments 07/09/2023 5:28 PM 07/09/2023 9:08 PM Question Answer Comments Patient has decision-making capacity? Yes Care Teams Paving Contractor Relationship Specialty Start Date End Date Bernard Ordonez MD [facility] [address] [place] [address] PCP - General 09/04/22
--- NOTE | 2024-11-18 08:00 | US_ITS ---
PROCEDURE INFORMATION: Exam: US Left Breast, Complete Exam date and time: 11/18/2024 7:55 AM Age: 64 years old Clinical indication: Follow-up probably benign left breast mass. TECHNIQUE: Imaging protocol: Complete ultrasound of all four quadrants of the left breast and the retroareolar regions, including ultrasound of the axilla when performed. COMPARISON: US BREAST LT LIMITED 03/24/2024 9:34 AM FINDINGS: ULTRASOUND: Breast ultrasound findings: Left breast ultrasound: Redemonstrated simple cysts at 8 o'clock 11 cm from the nipple measuring 0.9 cm by 0.7 cm, decreased size since prior when measured 1.3 cm compatible with benignity. Incidentally noted clustered benign microcysts versus developing fat necrosis at 2 o'clock measuring 1.2 cm in aggregate. IMPRESSION: Benign simple cysts in the left breast decreased size prior compatible with benignity. There are no findings suspicious for malignancy. Annual mammographic screening is recommended to and January 2025 unless otherwise clinically indicated. ASSESSMENT: BI-RADS Category 2: Benign.
== END 2024-11-18 23:59 | disposition home or self-care (01) ==
LOC: RAD 07:47
PROVIDERS: PCP Internal Medicine; Visit Provider Internal Medicine
DX: N60.02 Solitary cyst of left breast (principal)
CPT/HCPCS: 76641

== ENCOUNTER 2025-02-10 10:08 | Outpatient (CLI) | payer MEDICARE, SELFPAY ==
[2025-02-10 14:41] LABS: Hematocrit 40.2 % (37.0-47.0); Hemoglobin 13.0 g/dL (12.2-16.2); Immature Granulocytes % 0.2 %; Mean Corpuscular HGB Conc 32.3 g/dL (31.8-35.4); Mean Corpuscular Hemoglobin 28.6 pg (27.0-31.2); Mean Corpuscular Volume 88.5 fl (81-99); Nucleated Red Blood Cells % 0 %; Platelet Count 266 K/mm3 (142-424); Red Blood Count 4.54 M/mm3 (4.20-5.40); Red Cell Distribution Width-SD 46.6 fL; White Blood Count 8.1 K/mm3 (4.8-10.8)
[2025-02-10 15:57] LABS: Hemoglobin A1C 5.6 % (4.0-6.0)
[2025-02-10 16:00] LABS: Alanine Aminotransferase 22 U/L (12-78); Albumin Level 4.1 g/dl (3.5-5.0); Albumin/Globulin Ratio 1.6 (1.1-1.8); Alkaline Phosphatase 87 U/L (38-126); Anion Gap 12.1 mEq/L (5-15); Aspartate Amino Transferase 28 U/L (14-36); Bilirubin,Total 0.7 mg/dl (0.2-1.3); Blood Urea Nitrogen 14 mg/dl (7-17); Calcium 9.3 mg/dl (8.4-10.2); Carbon Dioxide 29 mmol/L (22.0-30.0); Chloride 102 mmol/L (98-107); Cholesterol 150 mg/dl (140-200); Creatinine,Serum 0.70 mg/dl (0.52-1.04); Estimated Glomerular Filt Rate 84 ml/min (>60); GFR (African American) 101 ML/MIN (>60); Globulin 2.5 g/dL (1.3-3.2); Glucose 81 mg/dl (74-100); HDL Cholesterol 44 mg/dl (40-60); Potassium 4.1 mmoL/L (3.5-5.1); Sodium 139 mmol/L (136-145); Total Protein,Serum 6.6 g/dl (6.3-8.2); Triglycerides 188 mg/dl (30-150)
--- OUTSIDE RECORDS SUMMARY | 2025-02-11 12:13 | XMS_ITS | Clinical Summary ---
Author Organization [facility] Address [address] [place] [address] Care Team Providers Care Blow Molder Name Role Phone Bernard Ordonez MD Primary Care Provider [phone] Allergies No known active allergies Medications atenolol [...] implantable loop record er 06/19/2023 Overview (06/19/2023): [employer] Serial Number: [id number] Model: [id number] followed and implanted by [...] Density Scan 1958 [facility]-Hepatitis C Screening 1958 [facility]-/Child/Adol SDOH Screenings 1958 [facility]- SDOH Screenings 1976 [facility]-Adult SDOH Screenings 1976 [facility]-DTaP,Tdap,and Td Vaccine s (1 - Tdap) 1977 CT Colonography 10/11/2003 Colonoscopy 10/11/2003 FIT-DNA 10/11/2003 FIT 10/11/2003 FOBT 10/11/2003 Sigmoidoscopy 10/11/2003 [facility]-Colorectal Cancer Screening 10/11/2003 [facility]-Breast Cancer Screening 2008 [facility]-Pneumococcal Vaccine: 50 + Years (1 of 1 - PCV) 2008 [facility]-Zoster Vaccines (1 of 2) 2008 [facility]-Depression Screening 06/22/2024 06/22/2023 [id number] Vaccine (1 - 2023- season) 2025 [facility]-Influenza Vaccine (#1) 2025 [facility]-RSV Vaccine: 60+ Years o r [...] Patient has decision-making capacity? Yes Care Teams Blow Molder Relationship Specialty Start Date End Date Bernard Ordonez MD [facility] [address] [place] [address] PCP - General 09/04/22
== END 2025-02-10 23:59 ==
LOC: LAB.DROPOF 02-11 12:11
PROVIDERS: PCP Internal Medicine; Visit Provider Internal Medicine
DX: E11.59 Type 2 diabetes mellitus with other circulatory complications (principal); I10 Essential (primary) hypertension; E78.5 Hyperlipidemia, unspecified; I25.10 Atherosclerotic heart disease of native coronary artery without angina pectoris
CPT/HCPCS: 80053; 80061; 82043; 82570; 83036; 85025

== ENCOUNTER 2025-03-02 08:12 | Outpatient (CLI) | payer MEDICARE, SELFPAY ==
--- OUTSIDE RECORDS SUMMARY | 2025-03-02 08:23 | XMS_ITS | Clinical Summary ---
Author Organization 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 Yes Care Teams Principal Account Clerk Relationship Specialty Start Date End Date Bernard Ordonez MD [address] [place] [address] [address] [place] [address] PCP - General 09/04/22
--- NOTE | 2025-03-02 08:30 | MM_ITS ---
PROCEDURE INFORMATION: Exam: MG Bilateral Screening 3D Mammography Exam date and time: 03/02/2025 8:27 AM Age: 64 years old Clinical indication: Screening. No family history of breast cancer. TECHNIQUE: Imaging protocol: Bilateral Screening tomosynthesis and 2D mammography including computer-aided detection (CAD) when performed. COMPARISON: 1. MG MM DIG SCREENING MAMM BI W/CAD 09/06/2020 4:36 PM 2. US BREAST LT LIMITED 03/24/2024 9:34 AM FINDINGS: MAMMOGRAPHY: Breast composition: There are scattered areas of fibroglandular density. Mass: No suspicious mass. Architectural distortion: None. Calcifications: No suspicious calcifications. Asymmetric density: None. Skin thickening: None. Axillary adenopathy: None. Other findings: Loop recorder in the left lower inner quadrant, limits evaluation and accentuates the importance of clinical breast exam. IMPRESSION: No mammographic evidence of malignancy. Annual screening is recommended unless otherwise clinically indicated. ASSESSMENT: BI-RADS Category 1: Negative.
== END 2025-03-02 23:59 | disposition home or self-care (01) ==
LOC: RAD 08:14
PROVIDERS: PCP Internal Medicine; Visit Provider Internal Medicine
DX: Z12.31 Encounter for screening mammogram for malignant neoplasm of breast (principal); R92.323 Mammographic fibroglandular density, bilateral breasts; Z95.818 Presence of other cardiac implants and grafts
CPT/HCPCS: 77063; 77067